=== PATIENT | male | born 1955 | race African-American/Black ===

== ENCOUNTER 2019-10-19 09:53 | Day surgery (SDC) | payer MEDICARE ==
[2019-10-18 10:35] VITALS: BMI 30.7
[~2019-10-19 09:53] MED LIST: CYCLOPENTOLATE 1% OPHTH SOLN 2 ML BTL OP ONE; LACTATED RINGERS 1,000 ML IV SCH; TETRACAINE 0.5% OPHTH (PF) DROPS 4 ML BTL OP ONE
[2019-10-19 10:41] VITALS: RESP 16; TEMP 97.2
[2019-10-19] MEDS ORDERED: LIDOCAINE 1% (10MG/ML) FOR IV START INTRADERMA ONE (10:52)
[2019-10-19] MEDS: PHENYLEPHRINE 2.5% OPHTH DRP 2ML OP NR ×3 (10:55→11:06)
[2019-10-19] MEDS ORDERED: fentaNYL (PF) 50 MCG/ML 2 ML AMP ONE (11:36)
[2019-10-19] MEDS ORDERED: MIDAZOLAM 2 MG/2 ML VIAL ONE (11:36)
[2019-10-19] MEDS ORDERED: EPINEPHrine (PF) 0.3 ML in BALANCED SALT IRRIG SOLN COMB2 500 ML IRRIGATION ONE (11:54)
[2019-10-19] MEDS ORDERED: LIDOCAINE 1% (PF) 10MG/ML VIAL MISCELLANE ONE (11:55)
[2019-10-19] MEDS ORDERED: DUOVISC KIT (GREEN BOX) INTRAOCULA ONE (11:55)
[2019-10-19] MEDS ORDERED: BALANCED SALT IRRIG SOLN COMB2 15 ML IRRIG.SOLN IRRIGATION ONE (11:55)
[2019-10-19] MEDS: TIMOLOL 0.5% OPHTH DROPS 5 ML BTL OP ONE ×2 (11:56→12:14)
[2019-10-19] MEDS: MOXIFLOXACIN HCL 0.5% DROPS 3 ML BTL OP ONE ×2 (11:56→12:14)
[2019-10-19] MEDS ORDERED: FLUORESCEIN STRIPS 1 MG STRIP LEFT EYE ONE (12:12)
--- NOTE | 2019-10-19 12:16 | P.OP ---
Date of Procedure: 10/19/19 Preoperative Diagnosis: NS & CS Postoperative Diagnosis: same Procedure(s) Performed: PC IOL, OS Implants: MX60 16.00 Anesthesia: MAC Surgeon: Jerrod Finley Estimated Blood Loss (ml): 0 Pathology: none sent Condition: stable Disposition: same day Indications for Procedure: blurry vision Operative Findings: no complications
[2019-10-19 12:50] VITALS: BP 142/68; PULSE 47
--- NOTE | 2019-10-20 12:57 | OP ---
OPERATIVE REPORT DATE OF SURGERY: October 19, 2019 PREOPERATIVE DIAGNOSIS: Nuclear sclerosis. Cortical sclerosis. POSTOPERATIVE DIAGNOSIS: Nuclear sclerosis. Cortical sclerosis. OPERATION: Phacoemulsification of cataract and intraocular lens implant of left/OS eye. ESTIMATED BLOOD LOSS: Zero. SPECIMEN TAKEN: None. NARRATIVE: After obtaining the appropriate consent, the patient was brought to the Operating Room where the patient was placed under cardiac monitoring and prepped and draped in the usual sterile manner. At the 5 o'clock position a 15 degree super sharp blade was used to create a paracentesis followed by instillation of 1% Xylocaine MPF 50:50 mix with BSS into the anterior chamber. This was followed by Duovisc to stabilize the anterior chamber. At the 3 o'clock position a self-sealing corneal flap incision was created using 2.8 mm petar keratome. A cystotome was used to initiate a continuous tear capsulorrhexis which was completed with the Utrata forceps. A Binkhorst cannula was used to hydrodissect the lens nucleus followed by hydrodelineation. Phacoemulsification of the lens was performed utilizing phaco-chop in 13.02 seconds at 14% power. The remaining cortical material was removed using the irrigation aspiration mode followed by additional 1% Xylocaine MPF into the anterior chamber followed by viscoelastic to stabilize the capsular bag. A [employer] MX 60 E 16.0 diopter chamber lens was placed into the capsular bag without difficulty. The remaining viscoelastic material was removed from the anterior chamber with the irrigation/aspiration. Balanced salt solution was used to normalize the intraocular pressure. The incision was checked for watertight integrity. The patient then received two drops of 0.5% timolol followed by two drops Vigamox, was lightly patched and shielded in the usual manner. There were no complications from the procedure. The patient tolerated the procedure well and was returned to recovery in good condition. MMODL / IJN: [id number] /
== END 2019-10-19 13:00 | disposition home or self-care (01) ==
LOC: OR 09:53
PROVIDERS: ATTEND Ophthalmology
DX: H25.812 Combined forms of age-related cataract, left eye (principal); Z94.7 Corneal transplant status; H18.603 Keratoconus, unspecified, bilateral; H52.203 Unspecified astigmatism, bilateral; H52.13 Myopia, bilateral; Z96.1 Presence of intraocular lens; G20 Parkinson's disease; I10 Essential (primary) hypertension; J45.909 Unspecified asthma, uncomplicated; E78.5 Hyperlipidemia, unspecified; R00.1 Bradycardia, unspecified; M54.2 Cervicalgia; M19.90 Unspecified osteoarthritis, unspecified site; E66.9 Obesity, unspecified; Z68.31 Body mass index [BMI] 31.0-31.9, adult; Z91.012 Allergy to eggs; Z90.49 Acquired absence of other specified parts of digestive tract; Z79.52 Long term (current) use of systemic steroids; Z79.899 Other long term (current) drug therapy; Z79.51 Long term (current) use of inhaled steroids; Z97.3 Presence of spectacles and contact lenses; Z83.518 Family history of other specified eye disorder; Z82.61 Family history of arthritis; Z82.49 Family history of ischemic heart disease and other diseases of the circulatory system
CPT/HCPCS: 66984; C1780; J2250; J0171; J3010; J2001

== ENCOUNTER → 2019-12-23 | Day surgery (SDC) | payer MEDICARE ==
[2019-12-21 08:56] VITALS: BMI 28.7
[~2019-12-23] MED LIST changes: -CYCLOPENTOLATE 1% OPHTH SOLN 2 ML BTL OP ONE; -LACTATED RINGERS 1,000 ML IV SCH; +SIMETHICONE 40 MG/0.6 ML DROPS 2,000 MG/30 ML BOTTLE PO ONE; -TETRACAINE 0.5% OPHTH (PF) DROPS 4 ML BTL OP ONE
[2019-12-23 07:21] VITALS: BP 144/71; PULSE 69; RESP 16; TEMP 98.1
== END ==
LOC: ORWHC2ENDO 06:52
PROVIDERS: ATTEND Internal Medicine Gastroenterology
DX: K92.2 Gastrointestinal hemorrhage, unspecified (principal)
CPT/HCPCS: 91110

== ENCOUNTER 2019-12-26 12:49 | Inpatient (IN) | payer MEDICARE ==
[2019-12-26] MEDS ORDERED: SODIUM CHLORIDE 0.9% 1,000 ML IV STA (13:10)
[2019-12-26] MEDS ORDERED: ACETAMINOPHEN TAB 500 MG TAB PO STA (13:22)
[2019-12-26] MEDS ORDERED: IBUPROFEN 600 MG TAB PO STA (13:22)
[2019-12-26] MEDS ORDERED: ONDANSETRON 4 MG/2 ML VIAL IVP STA (13:25)
[2019-12-26 13:27] LABS: Basophils # (A) 0.1 k/uL (0-0.2); Basophils % (A) 0 %; Eosinophils # (A) 0.2 k/uL (0-0.7); Eosinophils % (A) 1 %; HCT 41.3 % (39.0-53.0); HGB 13.4 gm/dL (13.0-17.5); Lymphocytes % (A) 6 %; MCH 27.9 pg (25.0-35.0); MCHC 32.4 g/dL (31.0-37.0); MCV 86.1 fL (80.0-100.0); Mean Platelet Volume 9.2; Monocytes # (A) 0.5 k/uL (0-1.0); Monocytes % (A) 3 %; Neutrophils # (A) 14.4 k/uL (1.3-7.7); Neutrophils % (A) 89 %; Platelet Count 211 k/uL (150-450); RBC 4.79 m/uL (4.30-5.90); RDW 14.4 % (11.5-15.5); WBC 16.1 k/uL (3.8-10.6)
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
[2019-12-26 13:36] LABS: ALT 17 U/L (4-49); AST 60 U/L (17-59); African American GFR (CKD) >90 (>60 ml/min/1.73 sqM); Alkaline Phosphatase 100 U/L (38-126); Amylase 94 U/L (30-110); Anion Gap 7 mmol/L; Blood Urea Nitrogen 11 mg/dL (9-20); Calcium 8.8 mg/dL (8.4-10.2); Carbon Dioxide 23 mmol/L (22-30); Chloride 104 mmol/L (98-107); Glucose 105 mg/dL (74-99); Lipase 122 U/L (23-300); Non-African American GFR(CKD) >90 (>60 ml/min/1.73 sqM); Sodium 134 mmol/L (137-145); Total Bilirubin 1.1 mg/dL (0.2-1.3); Total Protein 6.8 g/dL (6.3-8.2)
[2019-12-26 13:39] LABS: Potassium 4.4 mmol/L (3.5-5.1)
[2019-12-26 14:59] LABS: Appearance,Urine Clear (Clear); Bilirubin,Urine Negative (Negative); Blood,Urine Negative (Negative); Color,Urine Yellow; Glucose,Urine (UA) Negative (Negative); Ketones,Urine Negative (Negative); Leukocyte Esterase,Urine Negative (Negative); Nitrite,Urine Negative (Negative); Protein,Urine Negative (Negative); Specific Gravity,Urine 1.014 (1.001-1.035); Urobilinogen,Urine <2.0 mg/dL (<2.0)
[2019-12-26] MEDS ORDERED: SODIUM CHLORIDE 0.9% 1,000 ML IV ONE (16:04)
[2019-12-26] MEDS ORDERED: ALBUTEROL NEBULIZED 2.5 MG/3 ML INHALATION PRN (17:24)
[2019-12-26] MEDS ORDERED: ACETAMINOPHEN TAB 325 MG TAB PO PRN (17:25)
[2019-12-26] MEDS ORDERED: ONDANSETRON 4 MG/2 ML VIAL IVP PRN (17:25)
[2019-12-26] MEDS ORDERED: MORPHINE SULFATE 2 MG/ML SYRINGE IVP PRN (17:25)
[2019-12-26] MEDS: VANCOMYCIN 125 MG CAPSULE PO SCH ×2 (18:07→20:17)
[2019-12-26] MEDS: CARBIDOPA-LEVODOPA ER 50-200MG 1 EACH TABLET.ER PO SCH ×2 (18:09→20:17)
[2019-12-26] MEDS: ATORVASTATIN 10 MG TAB PO SCH (20:17)
[2019-12-26] MEDS: MONTELUKAST 10 MG TAB PO SCH (20:17)
[2019-12-27] MEDS: LOSARTAN 50 MG TAB PO SCH (08:04)
[2019-12-27] MEDS: CARBIDOPA-LEVODOPA ER 50-200MG 1 EACH TABLET.ER PO SCH ×4 (08:04→21:50)
[2019-12-27] MEDS: VANCOMYCIN 125 MG CAPSULE PO SCH ×4 (08:04→21:51)
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
[2019-12-27 14:57] LABS: HCT 39.1 % (39.0-53.0); HGB 12.3 gm/dL (13.0-17.5); Hypochromasia Slight; MCH 28.1 pg (25.0-35.0); MCHC 31.4 g/dL (31.0-37.0); MCV 89.4 fL (80.0-100.0); Mean Platelet Volume 9.2; Platelet Count 161 k/uL (150-450); RBC 4.37 m/uL (4.30-5.90); RDW 14.6 % (11.5-15.5); WBC 10.4 k/uL (3.8-10.6)
[2019-12-27 15:06] LABS: ALT 11 U/L (4-49); AST 42 U/L (17-59); African American GFR (CKD) >90 (>60 ml/min/1.73 sqM); Alkaline Phosphatase 87 U/L (38-126); Anion Gap 5 mmol/L; Blood Urea Nitrogen 11 mg/dL (9-20); Calcium 8.1 mg/dL (8.4-10.2); Carbon Dioxide 25 mmol/L (22-30); Chloride 106 mmol/L (98-107); Glucose 119 mg/dL (74-99); Non-African American GFR(CKD) >90 (>60 ml/min/1.73 sqM); Sodium 136 mmol/L (137-145); Total Bilirubin 0.8 mg/dL (0.2-1.3); Total Protein 5.5 g/dL (6.3-8.2)
[2019-12-27] MEDS: CHOLESTYRAMINE (WITH SUGAR) 4 GM PACKET PO SCH (17:09)
--- NOTE | 2019-12-27 18:38 | CONS ---
CONSULTATION DATE OF DICTATION: 12/27/2019 REASON FOR CONSULTATION: Acute Clostridium difficile colitis. HISTORY OF PRESENT ILLNESS: The patient is a 64-year-old pleasant white male with history of hypertension, hyperlipidemia, Parkinson's disease, who was recently admitted to [facility] with acute GI bleed. He underwent an upper endoscopy as well as colonoscopy, and no obvious source of bleeding was identified. He was transferred to [facility], and apparently while there he also had repeat endoscopic procedures done, and no source of bleeding was identified. In the meantime the bleeding has subsided and he was discharged home. He did have a small bowel capsule endoscopy last Thursday, results of which are still pending at the time of this dictation. In the meantime, he started having severe diarrhea that started yesterday morning at 10 a.m. He had about 6 to 7 loose watery bowel movements and he became concerned. He had a fever of 101 and cramping lower abdominal pain. No bleeding. He came to the emergency room and subsequently was admitted to the hospital for further evaluation. He did have stool for C difficile done which was reported as positive and presently on oral vancomycin. He still has persistent diarrhea this morning. Abdominal pain is improving. No nausea, vomiting. Fever has resolved. He had an episode of acute C difficile colitis in October of 2019, at which time he was treated with vancomycin and did well. He denies any recent antibiotic use. PAST MEDICAL HISTORY: His past medical history is significant for hypertension, hyperlipidemia, Parkinson's disease, degenerative joint disease, recent GI bleed as mentioned above, hypercholesteremia. MEDICATIONS: Medications at home include Ventolin, Lipitor, Sinemet, Cozaar, Singulair, Alrex. ALLERGIES: EGGS. SOCIAL HISTORY: No smoking. No alcohol use. FAMILY HISTORY: Unremarkable. PAST SURGICAL HISTORY: Bilateral cataract surgery colon resection with anastomosis secondary to diverticulitis, bilateral corneal transplants. REVIEW OF SYSTEMS: CARDIOPULMONARY: No chest pain or shortness of breath. GENITOURINARY: No dysuria or hematuria. MUSCULOSKELETAL: Unremarkable. SKIN: Unremarkable. ENDOCRINE: Unremarkable. PSYCHIATRIC: Unremarkable. NEUROLOGY: History of Parkinson's disease. ENT/VISION: Unremarkable. ENDOCRINE: Unremarkable. CONSTITUTIONAL: No recent weight loss. No fever, chills, night sweats. PHYSICAL EXAMINATION: He appears comfortable. VITAL SIGNS: Stable. Blood pressure 152/75, pulse rate 57, temperature 98. HEENT examination unremarkable. Conjunctivae pink. Sclerae anicteric. Oral cavity no lesions. NECK: No JVD or lymph node enlargement. CHEST: Clear to auscultation. HEART: Regular rate and rhythm. ABDOMEN: Soft. It was non-tender, non-distended. Bowel sounds are positive. No organomegaly. EXTREMITIES: No pedal edema. NEUROLOGIC: Alert and oriented x3. No focal deficits. LABS: Labs from yesterday: WBC 16.1, hemoglobin 13.4, platelets normal, neutrophils 14.4. Basic metabolic panel is within normal limits. AST 60, ALT 70. Amylase and lipase are normal. C difficile was positive. Today WBC is down to 10.4 g/dL. Rest of the labs are within normal limits. IMPRESSION: 1. Acute Clostridium difficile colitis. Patient was started on oral vancomycin and clinically he is improving. He still has persistent diarrhea with abdominal pain and fever has resolved. Leukocytosis has completely resolved. He had an episode of Clostridium difficile colitis in October of this year, treated with vancomycin and had done well. He denies any recent antibiotic use. 2. Recent gastrointestinal bleed, for which he underwent upper endoscopy as well as colonoscopy by Dr. Forte at [facility] 2 weeks ago that was unremarkable. Small bowel capsule endoscopy was done last week, results of which are pending at the time of this dictation. 3. History of Parkinson's disease. RECOMMENDATIONS: 1. Continue oral vancomycin 250 mg 4 times daily. 2. We will start him on Questran 4 grams twice daily. 3. Continue with a clear liquid diet and advance as tolerated. 4. Avoid antibiotics if possible. 5. Repeat labs in the morning. We will follow with you closely. Thank you for this consultation. MMODL / IJN: [id number] /
[2019-12-27] MEDS: ATORVASTATIN 10 MG TAB PO SCH (21:51)
[2019-12-27] MEDS: MONTELUKAST 10 MG TAB PO SCH (21:51)
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
[2019-12-28 06:08] LABS: HCT 38.4 % (39.0-53.0); HGB 12.3 gm/dL (13.0-17.5); Hypochromasia Slight; MCH 28.2 pg (25.0-35.0); MCV 88.1 fL (80.0-100.0); Mean Platelet Volume 9.1; Platelet Count 179 k/uL (150-450); RBC 4.36 m/uL (4.30-5.90); RDW 14.3 % (11.5-15.5); WBC 9.1 k/uL (3.8-10.6)
[2019-12-28 06:23] LABS: ALT 13 U/L (4-49); AST 31 U/L (17-59); African American GFR (CKD) >90 (>60 ml/min/1.73 sqM); Albumin 2.9 g/dL (3.5-5.0); Alkaline Phosphatase 86 U/L (38-126); Anion Gap 6 mmol/L; Blood Urea Nitrogen 7 mg/dL (9-20); Calcium 8.1 mg/dL (8.4-10.2); Carbon Dioxide 24 mmol/L (22-30); Chloride 106 mmol/L (98-107); Glucose 83 mg/dL (74-99); Non-African American GFR(CKD) >90 (>60 ml/min/1.73 sqM); Potassium 3.8 mmol/L (3.5-5.1); Sodium 136 mmol/L (137-145); Total Bilirubin 0.7 mg/dL (0.2-1.3); Total Protein 5.4 g/dL (6.3-8.2)
[2019-12-28] MEDS: LOSARTAN 50 MG TAB PO SCH (07:50)
[2019-12-28] MEDS: VANCOMYCIN 125 MG CAPSULE PO SCH ×4 (07:50→21:08)
[2019-12-28] MEDS: PANTOPRAZOLE 40 MG TABLET PO SCH (07:50)
[2019-12-28] MEDS: CARBIDOPA-LEVODOPA ER 50-200MG 1 EACH TABLET.ER PO SCH ×4 (07:50→21:08)
[2019-12-28] MEDS: CHOLESTYRAMINE (WITH SUGAR) 4 GM PACKET PO SCH (09:39)
--- NOTE | 2019-12-28 12:32 | PN ---
PROGRESS NOTE DATE OF SERVICE: 12/28/2019 REASON FOR FOLLOWUP: C difficile colitis. INTERVAL HISTORY: The patient is currently afebrile. The patient is feeling better. Breathing comfortably. Patient denies having any chest pain. No shortness of breath, no cough. Abdominal pain is currently controlled and diarrhea has slowed down. PHYSICAL EXAMINATION: Blood pressure 161/76 with a pulse of 54, temperature 98.8, he is 96% on room air. General description is an is elderly male, up in the room in no distress. RESPIRATORY SYSTEM: Unlabored breathing, clear to auscultation anteriorly. HEART: S1, S2. Regular rate and rhythm. ABDOMEN: Soft, no tenderness. LABS: Hemoglobin is 12.1, white count 9.1, BUN of 7, creatinine 0.78. DIAGNOSTIC IMPRESSION AND PLAN: Patient with recurrent C difficile colitis in this patient seemed to be clinically responding to oral vancomycin with gram-negative and course of vancomycin being his second episode. Advised to increase probiotic and yogurt intake. Continue supportive care. MMODL / IJN: [id number] /
--- NOTE | 2019-12-28 14:11 | P.PN ---
Subjective Progress Note Date: 12/28/19 HISTORY OF PRESENT ILLNESS This is a 64-year-old male patient of Dr. Hernández with past medical history of hypertension, hyperlipidemia, Parkinson's, mild intermittent asthma, restless leg syndrome, diverticulitis requiring colectomy and reanastomosis. Patient was recently hospitalized at [facility] at which time he was seen for GI bleed. He initially presented to hospital due to fever and diarrhea with liquid stools. He underwent endoscopy with Dr. Forte that found small bowel bleeding and patient was sent [facility] for evaluation and treatment. Patient had repeated endoscopy upper and lower and did not find any source of bleeding and discharged the patient home. Patient was then hospitalized at [facility] November 19 through November 24 and treated for C. difficile colitis and discharged home on vancomycin for 14 day course. He also underwent capsule endoscopy on December [address] Kenney. Patient had sudden onset of diarrhea yesterday which was occurring every time he ate. He also developed fever up to 101. He denies having any lightheadedness or dizziness, no chest pain. He attempted to call the office and was directed to come into the hospital for treatment and treatment. Patient presented to [facility] emergency center for evaluation. He had a temperature of 100.8, heart rate 103, blood pressure 1 49/84 and pulse ox 98% on room air. WBC 16.1, hemoglobin 13.4, platelet count 211. Sodium 134, potassium 4.4, chloride 104, CO2 23, BUN 11 and creatinine 0.8. Blood sugar 105. AST 60, ALT 17, alkaline phosphatase 100, lipase 122. Urinalysis negative. Lactic acid 1.6. C. difficile toxin positive. Patient was placed on the observation unit and started on vancomycin and IV fluids. Patient has had a total of 5 bowel movements since admission. 12/27: Patient has been seen by Dr. Kenney with recommendations to continue current management. Capsule endoscopy report is pending. Patient is also followed by Dr. Zee with recommendations to continue current management. Patient is on oral vancomycin 250 mg 4 times daily and Questran 4 g twice daily. Frequency of stools is improved. He denies having any fever or chills.patient has been afebrile, heart rate 54, blood pressure 161/76, pulse ox 96% on room air. Repeat blood work reveals WBC 9.1, hemoglobin 12.3, platelet count 179. Sodium 136, potassium 3.8, chloride 106, CO2 24, BUN 7 and creatinine 0.78. Anticipate discharge home tomorrow. REVIEW OF SYSTEMS Constitutional: No fever, no chills, no night sweats. No weight change. No weakness, fatigue or lethargy. No daytime sleepiness. EENT: No headache. No blurred vision or double vision, no loss of vision. No loss of Hearing, no ringing in the ears, no dizziness. No nasal drainage or congestion. No epistaxis. No sore throat. Lungs: No shortness of breath, cough, no sputum production. No wheezing. Cardiovascular: No chest pain, no lower extremity edema. No palpitations. No paroxysmal nocturnal dyspnea. No orthopnea. No lightheadedness or dizziness. No syncopal episodes. Abdominal: No abdominal pain. No nausea, vomiting. Reports diarrhea. No constipation. No bloody or tarry stools.. No loss of appetite. Genitourinary: No dysuria, increased frequency, urgency. No urinary retention. Musculoskeletal: No myalgias. No muscle weakness, no gait dysfunction, no frequent falls. No back pain. No neck pain. Integumentary: No wounds, no lesions. No rash or pruritus. No unusual bruising. No change in hair or nails. Neurologic: No aphasia. No facial droop. No change in mentation. No head injury. No headache. No paralysis. No paresthesia. Psychiatric: No depression. No anxiety. No mood swings. Endocrine: No abnormal blood sugars. No weight change. No excessive sweating or thirst. No cold intolerance. PHYSICAL EXAMINATION Gen: This is a 64-year-old black male. He is resting in bed and appears to be comfortable and in no acute distress. HEENT: Head is atraumatic, normocephalic. Pupils equal, round. Sclerae is anicteric. NECK: Supple. No JVD. No lymphadenopathy. No thyromegaly. LUNGS: Clear to auscultation. No wheezes or rhonchi. No intercostal retractions. HEART: Regular rate and rhythm. No murmur. ABDOMEN: Soft. Bowel sounds are present. No masses. Mild left lower quadrant tenderness-improving. EXTREMITIES: No pedal edema. No calf tenderness. NEUROLOGICAL: Patient is awake, alert and oriented x3. Cranial nerves 2 through 12 are grossly intact. Parkinson's tremor noted ASSESSMENT AND PLAN 1. Sepsis secondary to C. difficile colitis. Continue vancomycin 250 mg 4 times daily, Questran twice daily. Continue morphine as needed for pain, Zofran for nausea. Consult with Dr. Aurelio Kenney and Dr. Yayo esposito. Plan for tapering vancomycin at discharge. 2. Hypertension. Continue losartan 50 mg daily. 3. Hyperlipidemia. Continue Lipitor 10 mg at bedtime. 4. Parkinson's disease. Continue Sinemet 4 times daily. 5. Mild intermittent asthma. Continue Ventolin inhaler as needed, Singulair 10 mg at bedtime. 6. Gastrointestinal prophylaxis. Protonix. 7. DVT prophylaxis. SCDs and RAFAEL hose. Discharge plan: Return home on . Impression and plan of care have been directed as dictated by the signing physician. Chelly Jules nurse practitioner acting as scribe for signing physician. Objective - Vital Signs Vital signs: Vital Signs Temp 98.8 F 12/28/19 08:03 Pulse 54 L 12/28/19 08:03 Resp 16 12/28/19 08:03 BP 161/76 12/28/19 08:03 Pulse Ox 96 12/28/19 08:03 Intake & Output 12/27/19 12/28/19 12/28/19 18:59 06:59 18:59 Other: Voiding Method Toilet Toilet Toilet Bedside Commode Bedside Commode Bedside Commode # Voids 1 1 1 # Bowel Movements 3 3 1 - Labs CBC & Chem 7: 12/28/19 05:34 12/28/19 05:34 Labs: Abnormal Lab Results - Last 24 Hours (Table) 12/27/19 12/27/19 12/28/19 Range/Units 14:30 14:30 05:34 Hgb 12.3 L 12.3 L (13.0-17.5) gm/dL Hct 38.4 L (39.0-53.0) % Sodium 136 L (137-145) mmol/L BUN (9-20) mg/dL Glucose 119 H (74-99) mg/dL Calcium 8.1 L (8.4-10.2) mg/dL Total Protein 5.5 L (6.3-8.2) g/dL Albumin 3.0 L (3.5-5.0) g/dL 12/28/19 Range/Units 05:34 Hgb (13.0-17.5) gm/dL Hct (39.0-53.0) % Sodium 136 L (137-145) mmol/L BUN 7 L (9-20) mg/dL Glucose (74-99) mg/dL Calcium 8.1 L (8.4-10.2) mg/dL Total Protein 5.4 L (6.3-8.2) g/dL Albumin 2.9 L (3.5-5.0) g/dL
[2019-12-28] MEDS ORDERED: CHOLESTYRAMINE (WITH SUGAR) 4 GM PACKET PO PRN (15:01)
--- NOTE | 2019-12-28 15:11 | P.PN ---
Subjective Progress Note Date: 12/28/19 Principal diagnosis: Acute Clostridium difficile colitis The patient was seen and examined at the bedside. He was admitted for diarrhea which his stool studies did show positive for C. difficile in which she has been treating with oral vancomycin. He was started on Questran yesterday which he states has helped with bulking of stools. He states that his diarrhea has been decreasing in frequency, and has been beginning to form. He denies any nausea or vomiting, abdominal pain, fevers or chills. Objective - Vital Signs Vital signs: Vital Signs Temp 98.1 F 12/28/19 14:30 Pulse 50 L 12/28/19 14:30 Resp 16 12/28/19 14:30 BP 144/76 12/28/19 14:30 Pulse Ox 96 12/28/19 14:30 Intake & Output 12/27/19 12/28/19 12/28/19 18:59 06:59 18:59 Other: Voiding Method Toilet Toilet Toilet Bedside Commode Bedside Commode Bedside Commode # Voids 1 1 2 # Bowel Movements 3 3 1 - Exam General appearance: The patient is alert, oriented, in no acute distress. HET: Head is normocephalic and atraumatic. Neck: Supple. Heart: S1 S2. Regular rate and rhythm. Lungs: No crackles or wheezes are heard. Abdomen: Soft, nontender, nondistended with bowel sounds. No guarding or rigidity. Extremities: Normal skin color and turgor. No pedal edema. Neurological: No focal deficits. - Labs CBC & Chem 7: 12/28/19 05:34 12/28/19 05:34 Labs: Abnormal Lab Results - Last 24 Hours (Table) 12/27/19 12/28/19 12/28/19 Range/Units 14:30 05:34 05:34 Hgb 12.3 L (13.0-17.5) gm/dL Hct 38.4 L (39.0-53.0) % Sodium 136 L 136 L (137-145) mmol/L BUN 7 L (9-20) mg/dL Glucose 119 H (74-99) mg/dL Calcium 8.1 L 8.1 L (8.4-10.2) mg/dL Total Protein 5.5 L 5.4 L (6.3-8.2) g/dL Albumin 3.0 L 2.9 L (3.5-5.0) g/dL Assessment and Plan Assessment: 1. Acute Clostridium difficile colitis. She was started on oral vancomycin and clinically is improving. His diarrhea is improving, his abdominal pain and fever have resolved. Leukocytosis has completely resolved. He had an episode o f C. diff colitis in October of this year, treated with vancomycin and had done well. He denies any recent antibiotic use. 2. Recent gastrointestinal bleed, for which he underwent upper endoscopy as well as colonoscopy by Dr. Garcia [facility] 2 weeks ago and was unremarkable. Small bowel capsule endoscopy was done last week, results of which are pending at the time of this dictation. 3. History of Parkinson's disease Plan: 1. Continue oral vancomycin 250 mg 4 times daily 2. Questran 4 g twice daily, decrease to as needed 3. Advance diet as tolerated 4. Avoid antibiotics if possible 5. Repeat labs in the morning. We will follow you closely. Thank you for this consultation. The impression and plan of care has been dictated as directed. Dr. Aurelio Kenney I performed a history and examination of this patient, discussed the same with the dictator. I agree with the dictator's note ,documented as a scribe. Any additional findings or plans will be noted.
[2019-12-28] MEDS: MONTELUKAST 10 MG TAB PO SCH (21:08)
[2019-12-28] MEDS: ATORVASTATIN 10 MG TAB PO SCH (21:09)
[2019-12-29] MEDS: PANTOPRAZOLE 40 MG TABLET PO SCH (07:32)
[2019-12-29] MEDS: VANCOMYCIN 125 MG CAPSULE PO SCH ×2 (08:56→12:23)
[2019-12-29] MEDS: LOSARTAN 50 MG TAB PO SCH (08:56)
[2019-12-29] MEDS: CARBIDOPA-LEVODOPA ER 50-200MG 1 EACH TABLET.ER PO SCH ×2 (08:56→12:23)
[2019-12-29 09:13] VITALS: RESP 17; TEMP 98.5
[2019-12-29 11:09] VITALS: BP 151/69; PULSE 52
--- NOTE | 2019-12-29 15:43 | PN ---
PROGRESS NOTE DATE OF DICTATION: 12/29/2019 Patient is a 64-year-old -[place] male admitted to the hospital with a second episode of Clostridium difficile colitis. He is on oral vancomycin, doing well. Questran was discontinued yesterday. Overall he denies any complaints. No abdominal pain. He had 2 soft bowel movements this morning. PHYSICAL EXAMINATION: Appears comfortable. VITAL SIGNS: Stable. Blood pressure 151/61, pulse rate 52, temperature 98.5. HEENT examination unremarkable. Conjunctivae pink. Sclerae anicteric. Oral cavity no lesions. NECK: No JVD or lymph node enlargement. CHEST: Clear to auscultation. HEART: Regular rate and rhythm. ABDOMEN: Soft. Bowel sounds are positive. No organomegaly. EXTREMITIES: No pedal edema. NEUROLOGIC: Alert and oriented x3. No focal deficits. LABS: WBC 9.1, hemoglobin 12.3, platelets normal. Basic metabolic panel is within normal limits. IMPRESSION: 1. Recurrent Clostridium difficile colitis, this being the second episode, on oral vancomycin day #3, doing well. Diarrhea has resolved. 2. Recent episode of acute gastrointestinal bleed, for which he underwent esophagogastroduodenoscopy and colonoscopy by Dr. Forte 3 weeks ago at [facility] that was unremarkable. Small bowel capsule endoscopy was done and results are still pending at the time of this dictation. RECOMMENDATIONS: 1. Continue with oral vancomycin 250 mg 4 times daily for 10 days. 2. He will be notified about the small bowel capsule endoscopy results once they are available. 3. Questran as needed. 4. He can be discharged home today with outpatient followup as needed. Thank you for this consultation. MMODL / IJN: [id number] /
--- NOTE | 2019-12-29 16:57 | P.PN ---
Progress Note - Text Progress Note Date: 12/29/19 REASON FOR FOLLOWUP: C difficile colitis. INTERVAL HISTORY: The patient remains to be afebrile. The patient is feeling better. The patient is breathing comfortably. Patient denies having any chest pain. No shortness of breath, no cough. Abdominal pain is currently controlled and diarrhea has slowed down. PHYSICAL EXAMINATION: Blood pressure 160/70 with a pulse of 54, temperature 98.8, he is 96% on room air. General description is an is elderly male, up in the room in no distress. RESPIRATORY SYSTEM: Unlabored breathing, clear to auscultation anteriorly. HEART: S1, S2. Regular rate and rhythm. ABDOMEN: Soft, no tenderness. LABS: Reviewed . DIAGNOSTIC IMPRESSION AND PLAN: Patient with recurrent C difficile colitis in this patient seemed to be clinically responding to oral vancomycin , for being his recurrent episode recommend a tapering course of vancomycin on discharge patient advised to increase his probiotic and yougart intake
--- NOTE | 2019-12-30 07:36 | P.DS ---
Providers Date of admission: 12/27/19 12:41 Expected date of discharge: 12/29/19 Attending physician: Ryanne Mcgowan MD Consults: 12/26/19 17:26 Consult Physician Routine Consulting Provider: Peri Kenney Consult Reason/Comments: Cdiff? abdominal pain, and loose stools, jus had cdiff Do you want consulting provider notified?: Yes 12/26/19 17:27 Consult Physician Routine Consulting Provider: Chris Zee Consult Reason/Comments: Cdiff Do you want consulting provider notified?: Yes Primary care physician: Gayle Hernández [facility] Course: HISTORY OF PRESENT ILLNESS This is a 64-year-old male patient of Dr. Hernández with past medical history of hypertension, hyperlipidemia, Parkinson's, mild intermittent asthma, restless leg syndrome, diverticulitis requiring colectomy and reanastomosis. Patient was recently hospitalized at [facility] at which time he was seen for GI bleed. He initially presented to hospital due to fever and diarrhea with liquid stools. He underwent endoscopy with Dr. Forte that found small bowel bleeding and patient was sent [facility] for evaluation and treatment. Patient had repeated endoscopy upper and lower and did not find any source of bleeding and discharged the patient home. Patient was then hospitalized at [facility] November 19 through November 24 and treated for C. difficile colitis and discharged home on vancomycin for 14 day course. He also underwent capsule endoscopy on December [address] Kenney. Patient had sudden onset of diarrhea yesterday which was occurring every time he ate. He also developed fever up to 101. He denies having any lightheadedness or dizziness, no chest pain. He attempted to call the office and was directed to come into the hospital for treatment and treatment. Patient presented to [facility] emergency center for evaluation. He had a temperature of 100.8, heart rate 103, blood pressure 149/84 and pulse ox 98% on room air. WBC 16.1, hemoglobin 13.4, platelet count 211. Sodium 134, potassium 4.4, chloride 104, CO2 23, BUN 11 and creatinine 0.8. Blood sugar 105. AST 60, ALT 17, alkaline phosphatase 100, lipase 122. Urinalysis negative. Lactic acid 1.6. C. difficile toxin positive. Patient was placed on the observation unit and started on vancomycin and IV fluids. Patient has had a total of 5 bowel movements since admission. 12/27: Patient has been seen by Dr. Kenney with recommendations to continue current management. Capsule endoscopy report is pending. Patient is also followed by Dr. Zee with recommendations to continue current management. Patient is on oral vancomycin 250 mg 4 times daily and Questran 4 g twice daily. Frequency of stools is improved. He denies having any fever or chills.patient has been afebrile, heart rate 54, blood pressure 161/76, pulse ox 96% on room air. Repeat blood work reveals WBC 9.1, hemoglobin 12.3, platelet count 179. Sodium 136, potassium 3.8, chloride 106, CO2 24, BUN 7 and creatinine 0.78. Anticipate discharge home tomorrow. 12/28: Patient had no bowel movements overnight. He denies having any abdominal pain. No nausea or vomiting. Patient is afebrile, heart rate 48, blood pressure 151/82, pulse ox 100% on room air. Patient will be discharged on tapering dose of Vanco po as advised by Dr. Zee. Patient will be discharged home today in stable condition. ASSESSMENT AND PLAN 1. Sepsis secondary to C. difficile colitis. 2. Hypertension. 3. Hyperlipidemia. 4. Parkinson's disease. 5. Mild intermittent asthma. Discharge plan: Return home Impression and plan of care have been directed as dictated by the signing physician. Chelly Jules nurse practitioner acting as scribe for signing physician. Patient Condition at Discharge: Good Plan - Discharge Summary New Discharge Prescriptions: New Vancomycin Oral Solution 250 mg PO Q6HR #102 dose Continue Montelukast Sodium [Singulair] 10 mg PO HS Losartan Potassium [Cozaar] 50 mg PO DAILY Atorvastatin [Lipitor] 10 mg PO HS Albuterol Inhaler [Ventolin Hfa Inhaler] 2 puff INHALATION RT-QID PRN PRN Reason: Dyspnea Carbidopa-Levodopa ER 50-200Mg [Sinemet CR 50-200 mg] 1 each PO QID Loteprednol Etabonate [Alrex] 1 drop BOTH EYES HS Discharge Medication List Albuterol Inhaler [Ventolin Hfa Inhaler] 2 puff INHALATION RT-QID PRN 10/18/19 [History] Atorvastatin [Lipitor] 10 mg PO HS 10/18/19 [History] Carbidopa-Levodopa ER 50-200Mg [Sinemet CR 50-200 mg] 1 each PO QID 10/18/19 [History] Losartan Potassium [Cozaar] 50 mg PO DAILY 10/18/19 [History] Montelukast Sodium [Singulair] 10 mg PO HS 10/18/19 [History] Loteprednol Etabonate [Alrex] 1 drop BOTH EYES HS 12/26/19 [History] Vancomycin Oral Solution 250 mg PO Q6HR #102 dose 12/29/19 [Rx] Follow up Appointment(s)/Referral(s): Gayle Hernández MD [Primary Care Provider] - 01/09/20 10:30 am [facility] Visiting Nurse, [NON-STAFF] - 1-2 Days Patient Instructions/Handouts: Gastrointestinal Bleeding (GEN), C Diff (Clostridium Difficile) Infection (GEN) Discharge Disposition: HOME SELF-CARE
== END 2019-12-29 13:55 | disposition home health service (06) | DRG 872 ==
LOC: EC 12:49 → 1SOBS 16:04 → OBSVTOIN 12-27 12:41
PROVIDERS: ADMIT Internal Medicine; ATTEND Internal Medicine
DX: A41.4 Sepsis due to anaerobes (principal); A04.71 Enterocolitis due to Clostridium difficile, recurrent; G25.81 Restless legs syndrome; I10 Essential (primary) hypertension; M19.90 Unspecified osteoarthritis, unspecified site; G20 Parkinson's disease; E78.00 Pure hypercholesterolemia, unspecified; E78.5 Hyperlipidemia, unspecified; J45.20 Mild intermittent asthma, uncomplicated; Z79.899 Other long term (current) drug therapy; Z91.012 Allergy to eggs; Z82.49 Family history of ischemic heart disease and other diseases of the circulatory system; Z87.19 Personal history of other diseases of the digestive system; Z86.19 Personal history of other infectious and parasitic diseases; Z90.49 Acquired absence of other specified parts of digestive tract; Z98.890 Other specified postprocedural states; Z98.42 Cataract extraction status, left eye; Z98.41 Cataract extraction status, right eye; Z94.7 Corneal transplant status
CPT/HCPCS: 36415; 80053; 81003; 82150; 83605; 83690; 85025; 85027; 87324; 96361; 96374; 99284

== ENCOUNTER → 2020-08-24 | Day surgery (SDC) | payer MEDICARE ==
[2020-08-23 15:06] VITALS: BMI 28.5
[2020-08-24 06:51] VITALS: BP 141/67; PULSE 100; RESP 18; TEMP 96.8
== END ==
LOC: ORWHC2ENDO 06:33
PROVIDERS: ATTEND Internal Medicine
DX: K92.1 Melena (principal)
CPT/HCPCS: 91110

== ENCOUNTER 2022-05-26 02:56 | Inpatient (IN) | payer MEDICARE ==
[2022-05-26 03:08] VITALS: TEMP 97.7
[2022-05-26] MEDS ORDERED: DILTIAZEM 5 MG/ML 5 ML VIAL IVP STA (03:26)
[2022-05-26] MEDS ORDERED: SODIUM CHLORIDE 0.9% 1,000 ML IV STA ×2 (03:26)
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
[2022-05-26 03:43] LABS: Basophils # (A) 0.1 k/uL (0-0.2); Basophils % (A) 1 %; Eosinophils # (A) 0.2 k/uL (0-0.7); Eosinophils % (A) 3 %; HCT 48.7 % (39.0-53.0); HGB 16.8 gm/dL (13.0-17.5); Lymphocytes # (A) 3.2 k/uL (1.0-4.8); Lymphocytes % (A) 39 %; MCH 29.8 pg (25.0-35.0); MCHC 34.4 g/dL (31.0-37.0); MCV 86.4 fL (80.0-100.0); Mean Platelet Volume 8.9; Monocytes # (A) 0.5 k/uL (0-1.0); Monocytes % (A) 6 %; Neutrophils # (A) 4.1 k/uL (1.3-7.7); Neutrophils % (A) 50 %; Platelet Count 190 k/uL (150-450); RBC 5.64 m/uL (4.30-5.90); RDW 12.5 % (11.5-15.5); WBC 8.3 k/uL (3.8-10.6)
[2022-05-26 03:56] LABS: Calcium 8.7 mg/dL (8.4-10.2); INR 1.1 (<1.2); Magnesium 1.7 mg/dL (1.6-2.3); Phosphorus 4.6 mg/dL (2.5-4.5); Prothrombin Time 11.2 sec (9.0-12.0)
[2022-05-26 03:57] LABS: Potassium 4.7 mmol/L (3.5-5.1)
--- NOTE | 2022-05-26 04:31 | XR ---
EXAMINATION TYPE: XR chest 2V DATE OF EXAM: 05/26/2022 COMPARISON: NONE HISTORY: Chest pain TECHNIQUE: 2 views FINDINGS: Heart and mediastinum are normal. Lungs are clear. Diaphragm is normal. Bony thorax is inta ct. There are no hilar masses. IMPRESSION: Normal chest.
[2022-05-26] MEDS ORDERED: NALOXONE 0.4 MG/ML 1 ML VIAL IV PRN (04:57)
[2022-05-26] MEDS ORDERED: MORPHINE SULFATE 4 MG/ML SYRINGE IV PRN (04:57)
[2022-05-26] MEDS ORDERED: ONDANSETRON 4 MG/2 ML VIAL IVP PRN (04:57)
[2022-05-26] MEDS: SODIUM CHLORIDE 0.9% 1,000 ML IV SCH ×2 (07:57→13:06)
[2022-05-26] MEDS ORDERED: ALBUTEROL NEBULIZED 2.5 MG/3 ML INHALATION PRN (10:04)
[2022-05-26] MEDS ORDERED: CYCLOBENZAPRINE 5 MG TAB PO PRN (10:04)
[2022-05-26] MEDS ORDERED: LOSARTAN 25 MG TAB PO SCH (13:00)
[2022-05-26] MEDS ORDERED: DILTIAZEM CD 120 MG CAP.ER.24H PO SCH (13:00)
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
[2022-05-26] MEDS: MAGNESIUM SULFATE-D5W PMX 1 GM in DEXTROSE/WATER 1 100ML.BAG IVPB SCH ×2 (13:53→14:55)
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
[2022-05-26] MEDS ORDERED: CARBIDOPA-LEVODOPA ER 50-200MG 1 EACH TABLET.ER PO SCH (16:00)
[2022-05-26 16:02] VITALS: BP 131/73; PULSE 58; RESP 18
[2022-05-26] MEDS ORDERED: prednisoLONE ACETATE 1% OPHTH DROPS 5 ML BTL BOTH EYES SCH (21:00)
[2022-05-26] MEDS ORDERED: ATORVASTATIN 10 MG TAB PO SCH (21:00)
== END 2022-05-26 16:02 | disposition home or self-care (01) | DRG 310 ==
LOC: EC 02:56 → 3SCARD 04:57
PROVIDERS: ADMIT Hospitalist; ATTEND Hospitalist
DX: I47.1 Supraventricular tachycardia (principal); R42 Dizziness and giddiness; R00.1 Bradycardia, unspecified; I10 Essential (primary) hypertension; G20 Parkinson's disease; E83.42 Hypomagnesemia; E78.5 Hyperlipidemia, unspecified; M19.90 Unspecified osteoarthritis, unspecified site; J45.20 Mild intermittent asthma, uncomplicated; Z79.899 Other long term (current) drug therapy; Z91.012 Allergy to eggs; Z87.19 Personal history of other diseases of the digestive system; Z98.42 Cataract extraction status, left eye; Z98.41 Cataract extraction status, right eye; Z94.7 Corneal transplant status; Z98.1 Arthrodesis status
CPT/HCPCS: 36415; 71046; 80048; 83605; 83735; 83880; 84100; 84443; 84484; 85025; 85610; 93005; 96361; 96365; 96366; 99291

== ENCOUNTER → 2022-11-07 | Outpatient (CLI) | payer OTHER ==
--- NOTE | 2022-11-10 10:23 | MR ---
EXAMINATION TYPE: MR brain/cspine wo DATE OF EXAM: 11/07/2022 10:20 PM CLINICAL INDICATION:Male, 67 years old with history of R51.9,R27.0,M48.02; Headaches, Ataxia, Cervica l Stenosis COMPARISON: CT brain 06/15/2022 TECHNIQUE: Multiplanar, multisequence images of the brain and brainstem is performed. Multi planar, multi sequence imaging was performed utilizing: T1-weighted, T2-weighted, and turbo inv ersion recovery imaging of the cervical spine. MR IV Contrast: None FINDINGS: BRAIN: Diffusion weighted images demonstrate no evidence of a recent infarct or other diffusion abnormality. There is no extra-axial fluid collection. Scattered foci of high T2 signal in the periventricular a nd deep white matter. The ventricular system and cisternal spaces are normal in size and appearance. The brain volume is age appropriate. Midline structures demonstrate normal morphology. The cranioce rvical junction appears within normal limits. The dural venous sinuses appear patent. The bone marrow signal is within normal limits. Paranasal sinuses and mastoid air cells: Mild scattered paranasal sinus disease. Visualized orbits: Bilateral aphakia C-SPINE: Alignment: The cervical vertebral bodies have preserved heights. Alignment is within normal limits gi hal patient positioning. Bones: Postsurgical change to the spine at C4-C5 and C6 Multilevel degenerative disc disease is noted and most pronounced at the C5-C6 and C6-7 vertebral levels. Cord: The spinal cord is unremarkable with regards to their signal intensity and morphology. Discs: Multilevel disc desiccation is present. C2-C3: A disc osteophyte complex is present with mild spinal canal stenosis. Bilateral facet and unc overtebral joint arthropathy are present with mild left neural foraminal stenosis. The right neural f oramen is patent. C3-C4: A disc osteophyte complex is present which minimally narrows the ventral subarachnoid space. Bilateral facet and uncovertebral joint arthropathy are present with moderate bilateral moderate rig ht and mild left neural foraminal stenosis. C4-C5: A disc osteophyte complex is present which minimally narrows the ventral subarachnoid space. Bilateral facet and uncovertebral joint arthropathy are present with mild to moderate bilateral neur al foraminal stenosis. C5-C6: A disc osteophyte complex is present which which impresses on the left ventral spinal cord. Bilateral facet and uncovertebral joint arthropathy are present with moderate bilateral neural forami nal stenosis. C6-C7: A disc osteophyte complex is present which which impresses on the left ventral spinal cord. Bilateral facet and uncovertebral joint arthropathy are present with moderate bilateral neural forami nal stenosis. C7-T1: No significant disc pathology. The spinal canal is patent. Bilateral facet and uncovertebral joint arthropathy are present with moderate bilateral neural foraminal stenosis. Other: None. IMPRESSION: 1. No evidence of intracranial mass, acute/subacute infarct, or abnormal enhancement. 2. Nonspecific white matter changes, likely related to small vessel ischemic disease 3. Disc osteophyte complexes which impresses upon the anterior spinal cord at C5-C6 and C6-C7. Spina l cord signal is maintained. 4. Multiple disc degeneration changes throughout the spine.
== END | disposition home or self-care (01) ==
LOC: RADMRIMAIN 21:15
PROVIDERS: ATTEND Neurological Surgery
DX: M48.02 Spinal stenosis, cervical region (principal); M47.812 Spondylosis without myelopathy or radiculopathy, cervical region; M25.78 Osteophyte, vertebrae; M50.321 Other cervical disc degeneration at C4-C5 level; H27.03 Aphakia, bilateral; R90.82 White matter disease, unspecified; R51.9 Headache, unspecified; R27.0 Ataxia, unspecified; Z98.890 Other specified postprocedural states
CPT/HCPCS: 70551; 72141

== ENCOUNTER 2022-11-24 12:38 | Emergency (ER) | payer MEDICARE ==
[2022-11-24 13:52] VITALS: RESP 16
[2022-11-24] MEDS ORDERED: KETOROLAC 15 MG/ML 1 ML VIAL IM STA (14:31)
--- NOTE | 2022-11-24 14:57 | XR ---
EXAMINATION TYPE: XR Hip Complete RT DATE OF EXAM: 11/24/2022 COMPARISON: NONE HISTORY: Pain TECHNIQUE: 2 views submitted FINDINGS: There is no evidence of erosive change or acute fracture. Moderate concentric narrowing of the hip joint with hypertrophic change of the acetabulum. There is a enthesophytes involving the inferior pubic ramus and greater\lesser trochanter. There is sclerosis o f the right superior pubic ramus. IMPRESSION: 1. Moderate arthropathy correlate for femoral acetabular impingement. 2. Spurring along the trochanters can be associated with trochanteric bursitis. 3. Sclerosis superior pubic ramus may be related to bone island. Patient has a history of malignancy or prostate malignancy recommend bone scan to assess for metastases.
[2022-11-24] MEDS ORDERED: LIDOCAINE 5% PATCH TOPICAL SCH (15:00)
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
[2022-11-24 15:35] VITALS: BP 130/72; PULSE 62; TEMP 98.1
== END 2022-11-24 16:01 | disposition home or self-care (01) ==
LOC: EC 12:38
DX: M70.61 Trochanteric bursitis, right hip (principal); E78.5 Hyperlipidemia, unspecified; I10 Essential (primary) hypertension; J45.909 Unspecified asthma, uncomplicated; M19.90 Unspecified osteoarthritis, unspecified site; Z79.899 Other long term (current) drug therapy; Z91.012 Allergy to eggs
CPT/HCPCS: 73502; 99283; 96372; J1885

== ENCOUNTER → 2023-01-13 | Outpatient (CLI) | payer MEDICARE ==
[2023-01-13 13:16] LABS: African American GFR (CKD) >90 (>60 ml/min/1.73 sqM); Blood Urea Nitrogen 14 mg/dL (9-20); Non-African American GFR(CKD) 89 (>60 ml/min/1.73 sqM)
--- NOTE | 2023-01-14 08:12 | CT ---
EXAMINATION TYPE: CT angio neck DATE OF EXAM: 01/13/2023 HISTORY: light-headed COMPARISON: CT DLP: 281.8 mGycm. Automated Exposure Control for Dose Reduction was Utilized. TECHNIQUE: CTA scan of the head and neck is performed with IV Contrast, patient injected with 100 mL of Isovue 370, axial images are obtained, coronal and sagittal reformatted images are reviewed. 3D r econstructed images are created on an independent workstation and reviewed. FINDINGS: There is mild atherosclerotic changes of carotid artery. No significant sclerotic disease noted right . There is no evidence of significant hemodynamic stenosis of the bilateral carotid bifurcation. There is standard arch anatomy. Subclavian arteries are patent. Atherosclerotic change of the proxima l left common carotid artery. There is mild atherosclerotic change of the left subclavian artery. Left vertebral is dominant There is multilevel hypertrophic and degenerative changes of the spine. Previous surgery involving th e cervical spine. Multilevel facet arthropathy. Other: Visualized vertebrobasilar and carotid systems are patent with mild to moderate intracranial a therosclerotic change of the cavernous segment bilateral ICA. Orbits are symmetric. Intracranial structures are seen. IMPRESSION: 1. No significant hemodynamic stenosis of the carotid bifurcations. NASCET criteria was used in interpretation of this exam?
== END | disposition home or self-care (01) ==
LOC: RADCTMAIN 12:22
PROVIDERS: ATTEND Family Medicine
DX: R47.89 Other speech disturbances (principal); R42 Dizziness and giddiness
CPT/HCPCS: 82565; 84520; 70498; 36415; Q9967

== ENCOUNTER 2023-01-29 15:22 | Emergency (ER) | payer MEDICARE ==
[2023-01-29 15:49] VITALS: TEMP 98.2
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
[2023-01-29 17:31] VITALS: BP 129/80; PULSE 54; RESP 20
== END 2023-01-29 18:54 | disposition home or self-care (01) ==
LOC: EC 15:22
DX: R51.9 Headache, unspecified (principal); I10 Essential (primary) hypertension; R00.1 Bradycardia, unspecified; J45.909 Unspecified asthma, uncomplicated; G20.A1 Parkinson's disease without dyskinesia, without mention of fluctuations; Z20.822 Contact with and (suspected) exposure to COVID-19; Z79.899 Other long term (current) drug therapy; Z91.012 Allergy to eggs
CPT/HCPCS: 87636; 93005; 99284

== ENCOUNTER → 2023-02-05 | Outpatient (CLI) | payer OTHER ==
--- NOTE | 2023-02-06 09:06 | XR ---
EXAMINATION TYPE: XR cervical spine w flex/ext DATE OF EXAM: 02/05/2023 COMPARISON: NONE HISTORY: Pain TECHNIQUE: 7 views are submitted including flexion and extension lateral views. FINDINGS: The odontoid is intact. There are no compression deformities. The prevertebral soft tissue structur es are within normal limits. Hypertrophic spurring and facet arthropathy. Postsurgical changes C4-5 and C5-6 with disc spacers. Slight retrolisthesis of C5-6. IMPRESSION: 1. Postsurgical changes C4-5 and C5-6 with retrolisthesis of C5 relative to C6. 2. Multilevel facet arthropathy and foraminal encroachment suspected.
== END | disposition home or self-care (01) ==
LOC: RADXRMAIN 15:44
PROVIDERS: ATTEND Neurological Surgery
DX: M43.12 Spondylolisthesis, cervical region (principal); M47.812 Spondylosis without myelopathy or radiculopathy, cervical region; M48.02 Spinal stenosis, cervical region
CPT/HCPCS: 72052

== ENCOUNTER 2023-04-30 07:46 | Inpatient (IN) | payer MEDICARE ==
[2023-04-30] MEDS ORDERED: IBUPROFEN 600 MG TAB PO STA (08:55)
[2023-04-30] MEDS ORDERED: ACETAMINOPHEN TAB 500 MG TAB PO STA (08:55)
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
[2023-04-30] MEDS ORDERED: SODIUM CHLORIDE 0.9% 500 ML 500 ML IV SCH (09:00)
[2023-04-30 10:01] LABS: Basophils # (A) 0.1 k/uL (0-0.2); Basophils % (A) 0 %; Eosinophils # (A) 0.1 k/uL (0-0.7); Eosinophils % (A) 1 %; HCT 48.3 % (39.0-53.0); HGB 16.6 gm/dL (13.0-17.5); Lymphocytes # (A) 0.8 k/uL (1.0-4.8); Lymphocytes % (A) 5 %; MCH 30.6 pg (25.0-35.0); MCHC 34.4 g/dL (31.0-37.0); Monocytes # (A) 0.4 k/uL (0-1.0); Monocytes % (A) 2 %; Neutrophils # (A) 14.8 k/uL (1.3-7.7); Neutrophils % (A) 91 %; Platelet Count 211 k/uL (150-450); RBC 5.43 m/uL (4.30-5.90); RDW 12.2 % (11.5-15.5); WBC 16.3 k/uL (3.8-10.6)
[2023-04-30 10:32] LABS: ALT 189 U/L (4-49); AST 37 U/L (17-59); African American GFR (CKD) >90 (>60 ml/min/1.73 sqM); Albumin 3.8 g/dL (3.5-5.0); Alkaline Phosphatase 194 U/L (38-126); Anion Gap 13 mmol/L; Blood Urea Nitrogen 19 mg/dL (9-20); Calcium 8.9 mg/dL (8.4-10.2); Carbon Dioxide 24 mmol/L (22-30); Chloride 96 mmol/L (98-107); Glucose 104 mg/dL (74-99); Non-African American GFR(CKD) >90 (>60 ml/min/1.73 sqM); Potassium 4.6 mmol/L (3.5-5.1); Sodium 133 mmol/L (137-145); Total Bilirubin 1.5 mg/dL (0.2-1.3); Total Protein 7.3 g/dL (6.3-8.2)
[2023-04-30 10:41] LABS: Partial Thromboplastin Time 24.3 sec (22.0-30.0); Prothrombin Time 10.7 sec (10.0-12.5)
[2023-04-30 10:42] LABS: Appearance,Urine Cloudy (Clear); Bilirubin,Urine Negative (Negative); Blood,Urine Moderate (Negative); Color,Urine Yellow; Glucose,Urine (UA) Negative (Negative); Ketones,Urine 1+ (Negative); Leukocyte Esterase,Urine Large (Negative); Mucus,Urine Rare /hpf; Nitrite,Urine Negative (Negative); PH, Urine 7.5 (5.0-8.0); Protein,Urine Trace (Negative); RBC,Urine 20 /hpf (0-5); Squamous Epithelial Cell,Urine <1 /hpf (0-4); Urobilinogen,Urine <2.0 mg/dL (<2.0); WBC,Urine >182 /hpf (0-5)
--- NOTE | 2023-04-30 12:28 | XR ---
EXAMINATION TYPE: XR chest 2V DATE OF EXAM: 04/30/2023 COMPARISON: Prior chest x-ray June 14, 2022 HISTORY: Fever TECHNIQUE: Frontal and lateral views of the chest are obtained. FINDINGS: Low lung volumes are redemonstrated. There is no suspicious new focal air space opacity, pl eural effusion, or pneumothorax seen. The cardiac silhouette size is stable and within normal limits . The osseous structures are intact. IMPRESSION: No new acute pulmonary infiltrate. No significant change from prior.
[2023-04-30] MEDS ORDERED: ACETAMINOPHEN TAB 325 MG TAB PO PRN (13:25)
[2023-04-30] MEDS ORDERED: NALOXONE 0.4 MG/ML 1 ML VIAL IV PRN (13:25)
[2023-04-30] MEDS ORDERED: IBUPROFEN 400 MG TAB PO PRN (13:25)
[2023-04-30] MEDS: SODIUM CHLORIDE 0.9% 1,000 ML IV SCH ×3 (13:36→23:59)
[2023-04-30] MEDS: CARBIDOPA-LEVODOPA ER 50-200MG 1 EACH TABLET.ER PO SCH ×2 (17:49→21:32)
[2023-04-30] MEDS: HEPARIN SODIUM,PORCINE 5,000 UNIT/ML 1 ML VIAL SQ SCH ×2 (17:49→23:58)
[2023-04-30] MEDS: ATROPINE OPHTH SOLN 1% 5ML BTL LEFT EYE SCH (17:50)
[2023-04-30] MEDS: TIMOLOL 0.5% OPHTH DROPS 5 ML BTL RIGHT EYE SCH (17:51)
[2023-04-30] MEDS: OFLOXACIN 0.3% OPHTH DROPS 5 ML BOTTLE LEFT EYE SCH ×2 (17:52→21:33)
[2023-04-30] MEDS: prednisoLONE ACETATE 1% OPHTH DROPS 5 ML BTL BOTH EYES SCH ×2 (17:53→21:33)
[2023-04-30] MEDS: SODIUM CHLORIDE 5% OPHTH DROPS 15 ML BTL RIGHT EYE SCH ×2 (17:56→21:33)
[2023-04-30 20:55] LABS: Glucose,Whole Blood 144 mg/dL (70-110)
[2023-04-30] MEDS: MAGNESIUM OXIDE 400 MG TAB PO SCH (21:31)
[2023-04-30] MEDS: FAMOTIDINE 20 MG TAB PO SCH (21:32)
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
[2023-05-01 05:17] LABS: Glucose,Whole Blood 95 mg/dL (70-110)
[2023-05-01] MEDS: FAMOTIDINE 20 MG TAB PO SCH ×2 (08:24→21:52)
[2023-05-01] MEDS: CYANOCOBALAMIN 500 MCG TAB PO SCH (08:24)
[2023-05-01] MEDS: CARBIDOPA-LEVODOPA ER 50-200MG 1 EACH TABLET.ER PO SCH ×4 (08:24→21:52)
[2023-05-01] MEDS: CHOLECALCIFEROL 25 MCG (1000 IU) TABLET PO SCH (08:24)
[2023-05-01] MEDS: MAGNESIUM OXIDE 400 MG TAB PO SCH ×2 (08:24→21:52)
[2023-05-01] MEDS: LOSARTAN 25 MG TAB PO SCH (08:24)
[2023-05-01] MEDS: HEPARIN SODIUM,PORCINE 5,000 UNIT/ML 1 ML VIAL SQ SCH ×3 (08:24→23:24)
[2023-05-01] MEDS: OFLOXACIN 0.3% OPHTH DROPS 5 ML BOTTLE LEFT EYE SCH ×4 (08:25→21:54)
[2023-05-01] MEDS: TIMOLOL 0.5% OPHTH DROPS 5 ML BTL RIGHT EYE SCH ×2 (08:25→18:02)
[2023-05-01] MEDS: prednisoLONE ACETATE 1% OPHTH DROPS 5 ML BTL BOTH EYES SCH ×4 (08:25→22:32)
[2023-05-01] MEDS: SODIUM CHLORIDE 5% OPHTH DROPS 15 ML BTL RIGHT EYE SCH ×4 (08:25→21:54)
[2023-05-01] MEDS: ATROPINE OPHTH SOLN 1% 5ML BTL LEFT EYE SCH ×2 (08:26→18:02)
[2023-05-01 10:56] LABS: Basophils # (A) 0.04 X 10*3/uL (0.00-0.10); Basophils % (A) 0.2 %; Eosinophils # (A) 0.07 X 10*3/uL (0.04-0.35); Eosinophils % (A) 0.4 %; HGB 13.8 g/dL (13.0-17.0); Lymphocytes # (A) 1.18 X 10*3/uL (0.90-5.00); Lymphocytes % (A) 7.1 %; MCH 29.8 pg (27.0-32.0); MCHC 32.9 g/dL (32.0-37.0); MCV 90.7 FL (80.0-97.0); Mean Platelet Volume 11.4 FL (9.5-12.2); Monocytes # (A) 1.05 X 10*3/uL (0.20-1.00); Monocytes % (A) 6.3 %; NRBC Per 100 WBC 0 X 10*3/uL (0.00-0.01); Neutrophils # (A) 13.92 X 10*3/uL (1.80-7.70); Neutrophils % (A) 84.3 %; Platelet Count 184 X 10*3/uL (140-440); RBC 4.63 X 10*6/uL (4.40-5.60); RDW 12.6 % (11.5-14.5); WBC 16.54 X 10*3/uL (4.50-10.00)
[2023-05-01 11:05] LABS: ALT 51 U/L (10-49); AST 27 U/L (14-35); Albumin/Globulin Ratio 1.11 Ratio (1.60-3.17); Alkaline Phosphatase 151 U/L (41-126); BUN/Creat Ratio 22.12 Ratio (12.00-20.00); Blood Urea Nitrogen 17.7 mg/dL (9.0-27.0); Calcium 8.3 mg/dL (8.7-10.3); Carbon Dioxide 26.2 mmol/L (21.6-31.8); Chloride 96 mmol/L (96-109); Globulin 2.7 g/dL (1.6-3.3); Glucose 69 mg/dL (70-110); LDH 207 U/L (120-246); Potassium 4.5 mmol/L (3.5-5.5); Sodium 134 mmol/L (135-145); Total Bilirubin 1.1 mg/dL (0.3-1.2); Total Protein 5.7 g/dL (6.2-8.2)
[2023-05-01] MEDS: SODIUM CHLORIDE 0.9% 1,000 ML IV SCH ×2 (13:17→21:53)
[2023-05-01] MEDS ORDERED: VANCOMYCIN IV PER PHARMACY 1 EACH MISC MISCELLANE PRN (13:47)
[2023-05-01 16:22] LABS: Glucose,Whole Blood 104 mg/dL (70-110)
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
--- NOTE | 2023-05-02 05:13 | P.PN ---
Subjective Progress Note Date: 05/01/23 Patient is a 67-year-old male with a known history of Parkinson's disease, right, hand tremors, hypertension, hyperlipidemia, osteoarthritis, history of GI bleed, history of bowel resection due to diverticulitis, C4 C6 fusion surgery presents to ER due to generalized weakness and fatigue. Patient has been having symptoms for the past 2 days. He felt very weak and unable to get up and ambulate by himself. Patient usually walks with a walker and does have tremors due to Parkinson's disease. Patient states that he did have subjective fevers and chills. Denies any complaints of nausea or vomiting. No abdominal pain. Patient states that he noticed blood-tinged urine. No debbie blood or clots noted. Denies any dysuria or hematuria. Denies any focal weakness. Denies any recent illnesses. Patient was recently diagnosed with prostate cancer 1 week ago and is about to start treatment. Chest x-ray showed no new acute pulmonary infiltrate. No significant change from prior. EKG showed sinus tachycardia with heart rate 106 Laboratory data showed WBC 16.3 hemoglobin 16.6 and platelets 211 Sodium 133 potassium 4.6 chloride 96 bicarb is 24 BUN 19 and creatinine 0.74 and blood sugar 104 and calcium 8.9 total bili 1.5 AST 37 ALT 189 and alk phos 194 Urinalysis showed cloudy with trace protein 1+ glucose moderate blood and large leukocyte esterase with elevated RBCs and WBCs. COVID-19 PCR detected. On admission patient was febrile with Tmax 100.9 and tachycardic with heart rate 101 pulse ox 97% on room air. Blood pressure 140/73. 05/01/2023 Patient is seen and evaluated in follow-up today continued on antibiotics in the form of ceftriaxone with concerns of urinary tract infection with features of sepsis, present on admission. Patient also was noted to be COVID-19 positive. Patient reports he lives at home and has not been having pain or burning or decreased urinary output but did continue with fevers and feeling generally unwell. Patient does have history of Parkinson's and noted to have significant parkinsonian features on exam. Patient reports he walks with a cane and lives alone and will have PT/OT therapy evaluate the patient. Patient currently afebrile with no reported chest pain or shortness of breath. Preliminary blood cultures showing gram-negative bacilli and will follow-up with repeat cultures and consult infectious disease and appreciate input and recommendations. Review of systems: Constitutional: No reports of fatigue, no further fever, or chills Cardiovascular: No reports of chest pain or palpitations Respiratory: No reports of shortness of breath or cough GI: No reports of nausea, vomiting, or diarrhea : No reports of dysuria or retention Neurovascular: reports of generalized weakness All medications have been reviewed PHYSICAL EXAMINATION: Patient is lying in the bed asleep although arousable, alert and oriented. Weak and lethargic.. Appears elderly, well-developed, ill-appearing HEENT: Normocephalic. Neck is supple. Pupils reactive. Nostrils clear. Oral cavity is moist. Neck reveals no JVD, carotid bruits, or thyromegaly. CHEST EXAMINATION: Trachea is central. Symmetrical expansion. Bibasilar diminished sounds. No wheezing or rhonchi or crackles. CARDIAC: Normal S1, S2 with no gallops. No murmurs ABDOMEN: Soft. Bowel sounds present. Nontender. No organomegaly. No abdominal bruits. Extremities: reveal no edema. No clubbing or cyanosis Neurologically awake, alert, oriented x3. Able to move all extremities. Upper extremity tremors noted. Skin: No rash or skin lesions. Psychiatric: Cooperative. Non-suicidal, Musculoskeletal: No joint swelling or deformity. Parkinsonian movements noted of hands on exam Assessment: Acute COVID-19 infection symptoms for the past 2 days. Patient was vaccinated. Generalized weakness and fatigue and subjective fever and chills. Acute urinary tract infection, present on admission with sepsis Bacteremia, likely secondary to urinary tract infection with preliminary culture showing gram-negative bacilli Transaminitis Recently diagnosed prostate cancer about a week ago. Following with urology outpatient Parkinson's disease with bilateral upper extremity tremors Hypertension Hyperlipidemia Osteoarthritis History of moderate left central neck issues Prior history of C4 C6 fusion on 07/05/2020 History of bowel resection due to diverticulitis History of GI bleed. GI and DVT prophylaxis with Pepcid and heparin subcu Full code Plan: Patient will be continued on IV hydration with normal saline. Follow-up and repeat labs and monitor kidney functions. Replace electrolytes per protocol Patient was started on antibiotics, ceftriaxone 2 g every 24 hours and blood cultures coming back positive for gram-negative bacilli and will consult infectious disease and appreciate input and recommendations Patient does have recently diagnosed prostate cancer about a week ago with urology and has not been started on any treatment currently. Patient was scheduled outpatient for a PET scan although missed his appointment as he is hospitalized currently. Will need to be rescheduled Follow-up labs ordered including pro-calcitonin. Repeat blood cultures ordered and pending as well Continue with home medications as appropriate.. Continue with carbidopa/levodopa. Patient with overall weakness and reports lives alone and uses a cane will have physical therapy evaluate the patient The impression and plan of care has been dictated by Sasha Loya, Nurse Practitioner as directed. Dr. Maye MD I have performed a history and examination and MDM of this patient, discussed the same with the dictator, and agree with the dictator's assessment and plan as written ,documented as a scribe. Based on total visit time, I have performed more than 50% of the visit. Objective - Vital Signs Vital signs: Vital Signs Temp 99.2 F 05/01/23 07:20 Pulse 75 05/01/23 07:20 Resp 17 05/01/23 07:20 BP 149/73 05/01/23 07:20 Pulse Ox 98 05/01/23 07:20 FiO2 Intake & Output 04/30/23 05/01/23 05/01/23 18:59 06:59 18:59 Output Total 500 Balance -500 Weight 85.729 kg Output: Urine 500 Other: Voiding Method Urinal - Labs CBC & Chem 7: 05/01/23 05:55 05/01/23 05:55 Labs: Abnormal Lab Results - Last 24 Hours (Table) 04/30/23 04/30/23 04/30/23 Range/Units 09:11 09:11 09:11 WBC 16.3 H (3.8-10.6) k/uL Neutrophils # 14.8 H (1.3-7.7) k/uL Lymphocytes # 0.8 L (1.0-4.8) k/uL Sodium 133 L (137-145) mmol/L Chloride 96 L (98-107) mmol/L Glucose 104 H (74-99) mg/dL POC Glucose (mg/dL) (70-110) mg/dL Total Bilirubin 1.5 H (0.2-1.3) mg/dL ALT 189 H (4-49) U/L Alkaline Phosphatase 194 H (38-126) U/L Urine Protein Trace H (Negative) Urine Ketones 1+ H (Negative) Urine Blood Moderate H (Negative) Ur Leukocyte Esterase Large H (Negative) Urine RBC 20 H (0-5) /hpf Urine WBC >182 H (0-5) /hpf Urine WBC Clumps Few H (None) /hpf Urine Mucus Rare H (None) /hpf SARS-CoV-2 (PCR) (Not Detectd) 04/30/23 04/30/23 Range/Units 09:11 20:54 WBC (3.8-10.6) k/uL Neutrophils # (1.3-7.7) k/uL Lymphocytes # (1.0-4.8) k/uL Sodium (137-145) mmol/L Chloride (98-107) mmol/L Glucose (74-99) mg/dL POC Glucose (mg/dL) 144 H (70-110) mg/dL Total Bilirubin (0.2-1.3) mg/dL ALT (4-49) U/L Alkaline Phosphatase (38-126) U/L Urine Protein (Negative) Urine Ketones (Negative) Urine Blood (Negative) Ur Leukocyte Esterase (Negative) Urine RBC (0-5) /hpf Urine WBC (0-5) /hpf Urine WBC Clumps (None) /hpf Urine Mucus (None) /hpf SARS-CoV-2 (PCR) Detected A (Not Detectd) Microbiology - Last 24 Hours (Table) 04/30/23 09:30 Blood Culture Gram Stain - Preliminary Blood 04/30/23 09:45 Blood Culture Gram Stain - Preliminary Blood
--- NOTE | 2023-05-02 08:54 | US ---
EXAMINATION TYPE: US abdomen complete DATE OF EXAM: 05/02/2023 COMPARISON: NONE CLINICAL INDICATION: Male, 67 years old with history of UTI/Bacterema, elevated LFT; UTI, Elevated LF T's TECHNIQUE: Multiple sonographic images of the abdomen are obtained. FINDINGS: EXAM MEASUREMENTS: Liver Length: 12.1 cm Gallbladder Wall: 0.2 cm CBD: 0.3 cm Spleen: 8.3 cm Right Kidney: 10.1 x 5.2 x 5.3 cm Left Kidney: 10.0 x 6.1 x 4.9 cm POLYSTYRENE [employer] TENDER NOTES: Overlying bowel gas obscuring much of the abdominal structures Pancreas: Obscured by bowel gas Liver: Very limited views show no obvious abnormality Gallbladder: Lumen clear- limited visualization due to peristalsing bowel just anterior to GB Evidence for sonographic Aguayo's sign: No CBD: wnl Spleen: wnl Right Kidney: No evidence of hydro, limited views due to overlying bowel content Left Kidney: No evidence of hydro, limited views due to overlying bowel content Upper IVC: wnl Abd Aorta: Obscured by overlying bowel gas IMPRESSION: Limited assessment due to body habitus and prominent bowel gas. No gallstones or biliary ductal dilat ation seen.
[2023-05-02 09:21] LABS: Basophils # (A) 0.04 X 10*3/uL (0.00-0.10); Basophils % (A) 0.3 %; Eosinophils % (A) 0.8 %; HCT 39.8 % (39.6-50.0); HGB 13.5 g/dL (13.0-17.0); Lymphocytes # (A) 1.11 X 10*3/uL (0.90-5.00); Lymphocytes % (A) 8.3 %; MCH 29.7 pg (27.0-32.0); MCHC 33.9 g/dL (32.0-37.0); MCV 87.5 FL (80.0-97.0); Mean Platelet Volume 11.4 FL (9.5-12.2); Monocytes # (A) 1.13 X 10*3/uL (0.20-1.00); Monocytes % (A) 8.5 %; NRBC Per 100 WBC 0 X 10*3/uL (0.00-0.01); Neutrophils # (A) 10.71 X 10*3/uL (1.80-7.70); Neutrophils % (A) 80.5 %; Platelet Count 179 X 10*3/uL (140-440); RBC 4.55 X 10*6/uL (4.40-5.60); RDW 12.4 % (11.5-14.5)
[2023-05-02 09:40] LABS: ALT 38 U/L (10-49); AST 22 U/L (14-35); Albumin 2.9 g/dL (3.8-4.9); Albumin/Globulin Ratio 1.12 Ratio (1.60-3.17); Alkaline Phosphatase 152 U/L (41-126); BUN/Creat Ratio 20.86 Ratio (12.00-20.00); Blood Urea Nitrogen 14.6 mg/dL (9.0-27.0); Calcium 8.4 mg/dL (8.7-10.3); Chloride 99 mmol/L (96-109); Globulin 2.6 g/dL (1.6-3.3); Glucose 88 mg/dL (70-110); Magnesium 1.8 mg/dL (1.5-2.4); Potassium 4.4 mmol/L (3.5-5.5); Sodium 133 mmol/L (135-145); Total Bilirubin 0.8 mg/dL (0.3-1.2); Total Protein 5.5 g/dL (6.2-8.2)
[2023-05-02 09:48] LABS: Procalcitonin 1.82 ng/mL (0.02-0.09)
[2023-05-02] MEDS: CARBIDOPA-LEVODOPA ER 50-200MG 1 EACH TABLET.ER PO SCH ×4 (09:52→21:57)
[2023-05-02] MEDS: ASCORBIC ACID 500 MG TAB PO SCH (09:52)
[2023-05-02] MEDS: MAGNESIUM OXIDE 400 MG TAB PO SCH ×2 (09:52→21:57)
[2023-05-02] MEDS: CYANOCOBALAMIN 500 MCG TAB PO SCH (09:52)
[2023-05-02] MEDS: CHOLECALCIFEROL 25 MCG (1000 IU) TABLET PO SCH (09:52)
[2023-05-02] MEDS: FAMOTIDINE 20 MG TAB PO SCH ×2 (09:52→21:57)
[2023-05-02] MEDS: LOSARTAN 25 MG TAB PO SCH (09:52)
[2023-05-02] MEDS: TIMOLOL 0.5% OPHTH DROPS 5 ML BTL RIGHT EYE SCH ×2 (09:53→16:44)
[2023-05-02] MEDS: HEPARIN SODIUM,PORCINE 5,000 UNIT/ML 1 ML VIAL SQ SCH ×3 (09:53→23:11)
[2023-05-02] MEDS: prednisoLONE ACETATE 1% OPHTH DROPS 5 ML BTL BOTH EYES SCH ×4 (09:53→23:11)
[2023-05-02] MEDS: SODIUM CHLORIDE 5% OPHTH DROPS 15 ML BTL RIGHT EYE SCH ×4 (09:54→21:58)
[2023-05-02] MEDS: SODIUM CHLORIDE 0.9% 1,000 ML IV SCH ×2 (09:54→16:46)
[2023-05-02] MEDS: OFLOXACIN 0.3% OPHTH DROPS 5 ML BOTTLE LEFT EYE SCH ×4 (09:54→21:57)
[2023-05-02] MEDS: ATROPINE OPHTH SOLN 1% 5ML BTL LEFT EYE SCH ×2 (09:54→16:45)
[2023-05-02 10:35] LABS: Hepatitis B Surface Antigen Nonreactive
[2023-05-02 10:36] LABS: Hepatitis A Antibody IgM Nonreactive; Hepatitis B Core IgM Nonreactive; Hepatitis C IgG Antibody Nonreactive
--- NOTE | 2023-05-02 16:33 | P.PN ---
Subjective Progress Note Date: 05/02/23 Patient is a 67-year-old male with a known history of Parkinson's disease, right, hand tremors, hypertension, hyperlipidemia, osteoarthritis, history of GI bleed, history of bowel resection due to diverticulitis, C4 C6 fusion surgery presents to ER due to generalized weakness and fatigue. Patient has been having symptoms for the past 2 days. He felt very weak and unable to get up and ambulate by himself. Patient usually walks with a walker and does have tremors due to Parkinson's disease. Patient states that he did have subjective fevers and chills. Denies any complaints of nausea or vomiting. No abdominal pain. Patient states that he noticed blood-tinged urine. No debbie blood or clots noted. Denies any dysuria or hematuria. Denies any focal weakness. Denies any recent illnesses. Patient was recently diagnosed with prostate cancer 1 week ago and is about to start treatment. Chest x-ray showed no new acute pulmonary infiltrate. No significant change from prior. EKG showed sinus tachycardia with heart rate 106 Laboratory data showed WBC 16.3 hemoglobin 16.6 and platelets 211 Sodium 133 potassium 4.6 chloride 96 bicarb is 24 BUN 19 and creatinine 0.74 and blood sugar 104 and calcium 8.9 total bili 1.5 AST 37 ALT 189 and alk phos 194 Urinalysis showed cloudy with trace protein 1+ glucose moderate blood and large leukocyte esterase with elevated RBCs and WBCs. COVID-19 PCR detected. On admission patient was febrile with Tmax 100.9 and tachycardic with heart rate 101 pulse ox 97% on room air. Blood pressure 140/73. 05/01/2023 Patient is seen and evaluated in follow-up today continued on antibiotics in the form of ceftriaxone with concerns of urinary tract infection with features of sepsis, present on admission. Patient also was noted to be COVID-19 positive. Patient reports he lives at home and has not been having pain or burning or decreased urinary output but did continue with fevers and feeling generally unwell. Patient does have history of Parkinson's and noted to have significant parkinsonian features on exam. Patient reports he walks with a cane and lives alone and will have PT/OT therapy evaluate the patient. Patient currently afebrile with no reported chest pain or shortness of breath. Preliminary blood cultures showing gram-negative bacilli and will follow-up with repeat cultures and consult infectious disease and appreciate input and recommendations. 05/02/2023 Patient is evaluated today resting in bed. He is continued on IV ceftriaxone with blood culture showing klebsiella pneumoniae. Procalcitonin level 1.82. Sodium level 133. Continues on normal saline at 100. No acute complaints. Is noted to have a tremor mostly of the right hand. Review of systems: Constitutional: No reports of fatigue, no further fever, or chills Cardiovascular: No reports of chest pain or palpitations Respiratory: No reports of shortness of breath or cough GI: No reports of nausea, vomiting, or diarrhea : No reports of dysuria or retention Neurovascular: reports of generalized weakness All medications have been reviewed PHYSICAL EXAMINATION: Patient is lying in the bed asleep although arousable, alert and oriented. Weak and lethargic.. Appears elderly, well-developed, ill-appearing HEENT: Normocephalic. Neck is supple. Pupils reactive. Nostrils clear. Oral cavity is moist. Neck reveals no JVD, carotid bruits, or thyromegaly. CHEST EXAMINATION: Trachea is central. Symmetrical expansion. Bibasilar diminished sounds. No wheezing or rhonchi or crackles. CARDIAC: Normal S1, S2 with no gallops. No murmurs ABDOMEN: Soft. Bowel sounds present. Nontender. No organomegaly. No abdominal bruits. Extremities: reveal no edema. No clubbing or cyanosis Neurologically awake, alert, oriented x3. Able to move all extremities. Upper extremity tremors noted. Skin: No rash or skin lesions. Psychiatric: Cooperative. Non-suicidal, Musculoskeletal: No joint swelling or deformity. Parkinsonian movements noted of hands on exam Assessment: Acute COVID-19 infection symptoms for the past few days. Patient was vaccinated. Generalized weakness and fatigue and subjective fever and chills. Acute urinary tract infection, present on admission with sepsis Bacteremia, likely secondary to urinary tract infection with culture showing klebsiella pneumoniae Transaminitis Recently diagnosed prostate cancer about a week ago. Following with urology outpatient Parkinson's disease with bilateral upper extremity tremors Hypertension Hyperlipidemia Osteoarthritis History of moderate left central neck issues Prior history of C4 C6 fusion on 07/05/2020 History of bowel resection due to diverticulitis History of GI bleed. GI and DVT prophylaxis with Pepcid and heparin subcu Full code Plan: Patient will be continued on IV hydration with normal saline. Follow-up and repeat labs and monitor kidney functions. Replace electrolytes per protocol Patient was started on antibiotics, ceftriaxone 2 g every 24 hours and blood cultures showing klebsiella with repeats pending and infectious disease following closely. Patient does have recently diagnosed prostate cancer about a week ago with urology and has not been started on any treatment currently. Patient was scheduled outpatient for a PET scan although missed his appointment as he is hos pitalized currently. Will need to be rescheduled Follow-up labs ordered Repeat blood cultures ordered and pending as well Continue with home medications as appropriate.. Continue with carbidopa/levo dopa. Patient with overall weakness and reports lives alone and uses a cane will have physical therapy evaluate the patient The impression and plan of care has been dictated by Tania Madison Nurse Practitioner as directed. Dr. Maye MD I have performed a history and physical examination and medical decision making of this patient, discussed the same with the dictator, and agree with the dictators assessment and plan as written, documented as a scribe. Based on total visit time, I have performed more than 50% of this visit. Objective - Vital Signs Vital signs: Vital Signs Temp 98.1 F 05/02/23 08:00 Pulse 70 05/02/23 08:00 Resp 18 05/02/23 08:00 BP 143/81 05/02/23 08:00 Pulse Ox 99 05/02/23 08:00 FiO2 Intake & Output 05/01/23 05/02/23 05/02/23 18:59 06:59 18:59 Output Total 500 Balance -500 Output: Urine 500 Other: Voiding Method Urinal # Voids 4 # Bowel Movements 1 - Labs CBC & Chem 7: 05/02/23 05:56 05/02/23 05:56 Labs: Abnormal Lab Results - Last 24 Hours (Table) 05/01/23 05/01/23 05/02/23 Range/Units 05:55 05:55 05:56 WBC 16.54 H (4.50-10.00) X 10*3/uL Immature Gran # 0.28 H (0.00-0.04) X 10*3/uL Neutrophils # 13.92 H (1.80-7.70) X 10*3/uL Monocytes # 1.05 H (0.20-1.00) X 10*3/uL Sodium 134 L (135-145) mmol/L BUN/Creatinine Ratio 22.12 H (12.00-20.00) Ratio Glucose 69 L (70-110) mg/dL Calcium 8.3 L (8.7-10.3) mg/dL ALT 51 H (10-49) U/L Alkaline Phosphatase 151 H (41-126) U/L C-Reactive Protein 20.80 H (0.00-0.80) mg/dL Total Protein 5.7 L (6.2-8.2) g/dL Albumin 3.0 L (3.8-4.9) g/dL Albumin/Globulin Ratio 1.11 L (1.60-3.17) Ratio Procalcitonin 1.82 H (0.02-0.09) ng/mL 05/02/23 05/02/23 Range/Units 05:56 05:56 WBC 13.30 H (4.50-10.00) X 10*3/uL Immature Gran # 0.21 H (0.00-0.04) X 10*3/uL Neutrophils # 10.71 H (1.80-7.70) X 10*3/uL Monocytes # 1.13 H (0.20-1.00) X 10*3/uL Sodium 133 L (135-145) mmol/L BUN/Creatinine Ratio 20.86 H (12.00-20.00) Ratio Glucose (70-110) mg/dL Calcium 8.4 L (8.7-10.3) mg/dL ALT (10-49) U/L Alkaline Phosphatase 152 H (41-126) U/L C-Reactive Protein (0.00-0.80) mg/dL Total Protein 5.5 L (6.2-8.2) g/dL Albumin 2.9 L (3.8-4.9) g/dL Albumin/Globulin Ratio 1.12 L (1.60-3.17) Ratio Procalcitonin (0.02-0.09) ng/mL Microbiology - Last 24 Hours (Table) 04/30/23 09:45 Blood Culture Gram Stain - Preliminary Blood Blood Culture - Preliminary Gram Neg Bacilli 04/30/23 09:30 Blood Culture Gram Stain - Preliminary Blood Blood Culture - Preliminary Gram Neg Bacilli Assessment and Plan Time with Patient: Less than 30
[2023-05-03] MEDS: SODIUM CHLORIDE 0.9% 1,000 ML IV SCH ×3 (05:04→21:56)
[2023-05-03] MEDS: HEPARIN SODIUM,PORCINE 5,000 UNIT/ML 1 ML VIAL SQ SCH ×3 (08:47→23:03)
[2023-05-03] MEDS: CARBIDOPA-LEVODOPA ER 50-200MG 1 EACH TABLET.ER PO SCH ×4 (08:48→21:52)
[2023-05-03] MEDS: ASCORBIC ACID 500 MG TAB PO SCH (08:48)
[2023-05-03] MEDS: FAMOTIDINE 20 MG TAB PO SCH ×2 (08:48→21:52)
[2023-05-03] MEDS: prednisoLONE ACETATE 1% OPHTH DROPS 5 ML BTL BOTH EYES SCH ×4 (08:49→23:03)
[2023-05-03] MEDS: MAGNESIUM OXIDE 400 MG TAB PO SCH ×2 (08:49→21:52)
[2023-05-03] MEDS: LOSARTAN 25 MG TAB PO SCH (08:49)
[2023-05-03] MEDS: ATROPINE OPHTH SOLN 1% 5ML BTL LEFT EYE SCH ×2 (08:49→17:23)
[2023-05-03] MEDS: TIMOLOL 0.5% OPHTH DROPS 5 ML BTL RIGHT EYE SCH ×2 (08:49→17:22)
[2023-05-03] MEDS: CYANOCOBALAMIN 500 MCG TAB PO SCH (08:49)
[2023-05-03] MEDS: OFLOXACIN 0.3% OPHTH DROPS 5 ML BOTTLE LEFT EYE SCH ×4 (08:50→21:53)
[2023-05-03] MEDS: SODIUM CHLORIDE 5% OPHTH DROPS 15 ML BTL RIGHT EYE SCH ×4 (08:50→21:54)
[2023-05-03] MEDS: CHOLECALCIFEROL 25 MCG (1000 IU) TABLET PO SCH (08:51)
[2023-05-03 09:54] LABS: BUN/Creat Ratio 17.57 Ratio (12.00-20.00); Blood Urea Nitrogen 12.3 mg/dL (9.0-27.0); Carbon Dioxide 24.4 mmol/L (21.6-31.8); Chloride 101 mmol/L (96-109); Glucose 91 mg/dL (70-110); Potassium 4.3 mmol/L (3.5-5.5); Sodium 134 mmol/L (135-145)
[2023-05-03 09:55] LABS: Calcium 8.4 mg/dL (8.7-10.3)
[2023-05-03 10:05] LABS: Basophils # (A) 0.03 X 10*3/uL (0.00-0.10); Basophils % (A) 0.3 %; Eosinophils # (A) 0.11 X 10*3/uL (0.04-0.35); Eosinophils % (A) 1.2 %; HCT 37.8 % (39.6-50.0); HGB 12.8 g/dL (13.0-17.0); Lymphocytes # (A) 1.08 X 10*3/uL (0.90-5.00); Lymphocytes % (A) 11.9 %; MCH 29.4 pg (27.0-32.0); MCHC 33.9 g/dL (32.0-37.0); MCV 86.9 FL (80.0-97.0); Monocytes # (A) 0.81 X 10*3/uL (0.20-1.00); NRBC Per 100 WBC 0 X 10*3/uL (0.00-0.01); Neutrophils # (A) 6.86 X 10*3/uL (1.80-7.70); Neutrophils % (A) 75.9 %; Platelet Count 205 X 10*3/uL (140-440); RBC 4.35 X 10*6/uL (4.40-5.60); RDW 12.3 % (11.5-14.5); WBC 9.04 X 10*3/uL (4.50-10.00)
[2023-05-03] MEDS ORDERED: BENZOCAINE/MENTHOL LOZENG 1 EACH LOZENGE MUCOUS MEM PRN (14:56)
[2023-05-03] MEDS ORDERED: BENZONATATE 100 MG CAP PO PRN (14:56)
[2023-05-03] MEDS ORDERED: guaiFENesin SYRUP 100MG/5ML 200 MG/10 ML CUP PO PRN (14:56)
--- NOTE | 2023-05-03 14:58 | P.PN ---
Subjective Progress Note Date: 05/03/23 Patient is a 67-year-old male with a known history of Parkinson's disease, right, hand tremors, hypertension, hyperlipidemia, osteoarthritis, history of GI bleed, history of bowel resection due to diverticulitis, C4 C6 fusion surgery presents to ER due to generalized weakness and fatigue. Patient has been having symptoms for the past 2 days. He felt very weak and unable to get up and ambulate by himself. Patient usually walks with a walker and does have tremors due to Parkinson's disease. Patient states that he did have subjective fevers and chills. Denies any complaints of nausea or vomiting. No abdominal pain. Patient states that he noticed blood-tinged urine. No debbie blood or clots noted. Denies any dysuria or hematuria. Denies any focal weakness. Denies any recent illnesses. Patient was recently diagnosed with prostate cancer 1 week ago and is about to start treatment. Chest x-ray showed no new acute pulmonary infiltrate. No significant change from prior. EKG showed sinus tachycardia with heart rate 106 Laboratory data showed WBC 16.3 hemoglobin 16.6 and platelets 211 Sodium 133 potassium 4.6 chloride 96 bicarb is 24 BUN 19 and creatinine 0.74 and blood sugar 104 and calcium 8.9 total bili 1.5 AST 37 ALT 189 and alk phos 194 Urinalysis showed cloudy with trace protein 1+ glucose moderate blood and large leukocyte esterase with elevated RBCs and WBCs. COVID-19 PCR detected. On admission patient was febrile with Tmax 100.9 and tachycardic with heart rate 101 pulse ox 97% on room air. Blood pressure 140/73. 05/01/2023 Patient is seen and evaluated in follow-up today continued on antibiotics in the form of ceftriaxone with concerns of urinary tract infection with features of sepsis, present on admission. Patient also was noted to be COVID-19 positive. Patient reports he lives at home and has not been having pain or burning or decreased urinary output but did continue with fevers and feeling generally unwell. Patient does have history of Parkinson's and noted to have significant parkinsonian features on exam. Patient reports he walks with a cane and lives alone and will have PT/OT therapy evaluate the patient. Patient currently afebrile with no reported chest pain or shortness of breath. Preliminary blood cultures showing gram-negative bacilli and will follow-up with repeat cultures and consult infectious disease and appreciate input and recommendations. 05/02/2023 Patient is evaluated today resting in bed. He is continued on IV ceftriaxone with blood culture showing klebsiella pneumoniae. Procalcitonin level 1.82. Sodium level 133. Continues on normal saline at 100. No acute complaints. Is noted to have a tremor mostly of the right hand. 05/03/2023 Patient evaluated today sitting up in the chair. He is unable to take a deep breath which elicits coughing fit and will start the patient on robitussin for this and also recommending IS. Patient otherwise denies any shortness of breath. Repeat blood cultures pending and urine culture is negative. He remains on IV ceftriaxone for the klebsiella bacteremia and ID following closely. Today his white blood cell count has normalized to 9.04. Sodium 134. Review of systems: Constitutional: No reports of fatigue, no further fever, or chills Cardiovascular: No reports of chest pain or palpitations Respiratory: No reports of shortness of breath or cough GI: No reports of nausea, vomiting, or diarrhea : No reports of dysuria or retention Neurovascular: reports of generalized weakness All medications have been reviewed PHYSICAL EXAMINATION: Patient is lying in the bed asleep although arousable, alert and oriented. Weak and lethargic.. Appears elderly, well-developed, ill-appearing HEENT: Normocephalic. Neck is supple. Pupils reactive. Nostrils clear. Oral cavity is moist. Neck reveals no JVD, carotid bruits, or thyromegaly. CHEST EXAMINATION: Trachea is central. Symmetrical expansion. Bibasilar diminished sounds. No wheezing or rhonchi or crackles. CARDIAC: Normal S1, S2 with no gallops. No murmurs ABDOMEN: Soft. Bowel sounds present. Nontender. No organomegaly. No abdominal bruits. Extremities: reveal no edema. No clubbing or cyanosis Neurologically awake, alert, oriented x3. Able to move all extremities. Upper extremity tremors noted. Skin: No rash or skin lesions. Psychiatric: Cooperative. Non-suicidal, Musculoskeletal: No joint swelling or deformity. Parkinsonian movements noted of hands on exam Assessment: Acute COVID-19 infection symptoms for the past few days. Patient was vaccinated. Generalized weakness and fatigue and subjective fever and chills. Acute urinary tract infection, present on admission with sepsis Bacteremia, likely secondary to urinary tract infection with culture showing klebsiella pneumoniae Transaminitis Recently diagnosed prostate cancer about a week ago. Following with urology outpatient Parkinson's disease with bilateral upper extremity tremors Hypertension Hyperlipidemia Osteoarthritis History of moderate left central neck issues Prior history of C4 C6 fusion on 07/05/2020 History of bowel resection due to diverticulitis History of GI bleed. GI and DVT prophylaxis with Pepcid and heparin subcu Full code Plan: Patient will be continued on IV hydration with normal saline. Follow-up and repeat labs and monitor kidney functions. Replace electrolytes per protocol Patient was started on antibiotics, ceftriaxone 2 g every 24 hours and blood cultures showing klebsiella with repeats pending and infectious disease following closely. Continue with supportive care for the covid and cough patient is bronchospastic and unable to take a deep breath without coughing. Patient does have recently diagnosed prostate cancer about a week ago with urology and has not been started on any treatment currently. Patient was scheduled outpatient for a PET scan although missed his appointment as he is hospitalized currently. Will need to be rescheduled Follow-up labs ordered Repeat blood cultures ordered and pending as well Continue with home medications as appropriate.. Continue with carbidopa/levodop a. Patient with overall weakness and reports lives alone and uses a cane will have physical therapy evaluate the patient The impression and plan of care has been dictated by Tania Madison Nurse Practitioner as directed. Dr. Maye MD I have performed a history and physical examination and medical decision making of this patient, discussed the same with the dictator, and agree with the dictators assessment and plan as written, documented as a scribe. Based on total visit time, I have performed more than 50% of this visit. Objective - Vital Signs Vital signs: Vital Signs Temp 97.7 F 05/03/23 07:21 Pulse 77 05/03/23 07:21 Resp 21 05/03/23 07:21 BP 151/78 05/03/23 07:21 Pulse Ox 99 05/03/23 07:21 FiO2 Intake & Output 05/02/23 05/03/23 05/03/23 18:59 06:59 18:59 Output Total 500 700 201 Balance -500 -700 -201 Output: Urine 500 700 200 Stool 1 Other: Voiding Method Urinal Urinal # Bowel Movements 2 - Labs CBC & Chem 7: 05/03/23 06:28 05/03/23 06:28 Labs: Abnormal Lab Results - Last 24 Hours (Table) 05/02/23 05/02/23 05/02/23 Range/Units 05:56 05:56 05:56 WBC 13.30 H (4.50-10.00) X 10*3/uL Immature Gran # 0.21 H (0.00-0.04) X 10*3/uL Neutrophils # 10.71 H (1.80-7.70) X 10*3/uL Monocytes # 1.13 H (0.20-1.00) X 10*3/uL Sodium 133 L (135-145) mmol/L BUN/Creatinine Ratio 20.86 H (12.00-20.00) Ratio Calcium 8.4 L (8.7-10.3) mg/dL Alkaline Phosphatase 152 H (41-126) U/L Total Protein 5.5 L (6.2-8.2) g/dL Albumin 2.9 L (3.8-4.9) g/dL Albumin/Globulin Ratio 1.12 L (1.60-3.17) Ratio Procalcitonin 1.82 H (0.02-0.09) ng/mL Microbiology - Last 24 Hours (Table) 05/01/23 16:14 Urine Culture - Final Urine,Voided 05/01/23 13:57 Blood Culture - Preliminary Blood 04/30/23 09:45 Blood Culture Gram Stain - Final Blood Blood Culture - Final Klebsiella pneumoniae 04/30/23 09:30 Blood Culture Gram Stain - Final Blood Blood Culture - Final Klebsiella pneumoniae Assessment and Plan Time with Patient: Less than 30
[2023-05-04] MEDS: MAGNESIUM OXIDE 400 MG TAB PO SCH ×2 (08:18→21:20)
[2023-05-04] MEDS: ASCORBIC ACID 500 MG TAB PO SCH (08:18)
[2023-05-04] MEDS: HEPARIN SODIUM,PORCINE 5,000 UNIT/ML 1 ML VIAL SQ SCH ×3 (08:18→23:25)
[2023-05-04] MEDS: CARBIDOPA-LEVODOPA ER 50-200MG 1 EACH TABLET.ER PO SCH ×4 (08:18→21:20)
[2023-05-04] MEDS: ATROPINE OPHTH SOLN 1% 5ML BTL LEFT EYE SCH ×2 (08:19→17:43)
[2023-05-04] MEDS: LOSARTAN 25 MG TAB PO SCH (08:19)
[2023-05-04] MEDS: FAMOTIDINE 20 MG TAB PO SCH ×2 (08:19→21:20)
[2023-05-04] MEDS: CYANOCOBALAMIN 500 MCG TAB PO SCH (08:19)
[2023-05-04] MEDS: SODIUM CHLORIDE 0.9% 1,000 ML IV SCH ×2 (08:19→17:44)
[2023-05-04] MEDS: CHOLECALCIFEROL 25 MCG (1000 IU) TABLET PO SCH (08:19)
[2023-05-04] MEDS: prednisoLONE ACETATE 1% OPHTH DROPS 5 ML BTL BOTH EYES SCH ×4 (08:20→21:21)
[2023-05-04] MEDS: SODIUM CHLORIDE 5% OPHTH DROPS 15 ML BTL RIGHT EYE SCH ×4 (08:20→21:21)
[2023-05-04] MEDS: OFLOXACIN 0.3% OPHTH DROPS 5 ML BOTTLE LEFT EYE SCH ×4 (08:20→21:21)
[2023-05-04] MEDS: TIMOLOL 0.5% OPHTH DROPS 5 ML BTL RIGHT EYE SCH ×2 (08:20→17:43)
--- NOTE | 2023-05-04 14:52 | P.PN ---
Subjective Progress Note Date: 05/04/23 Patient is a 67-year-old male with a known history of Parkinson's disease, right, hand tremors, hypertension, hyperlipidemia, osteoarthritis, history of GI bleed, history of bowel resection due to diverticulitis, C4 C6 fusion surgery presents to ER due to generalized weakness and fatigue. Patient has been having symptoms for the past 2 days. He felt very weak and unable to get up and ambulate by himself. Patient usually walks with a walker and does have tremors due to Parkinson's disease. Patient states that he did have subjective fevers and chills. Denies any complaints of nausea or vomiting. No abdominal pain. Patient states that he noticed blood-tinged urine. No debbie blood or clots noted. Denies any dysuria or hematuria. Denies any focal weakness. Denies any recent illnesses. Patient was recently diagnosed with prostate cancer 1 week ago and is about to start treatment. Chest x-ray showed no new acute pulmonary infiltrate. No significant change from prior. EKG showed sinus tachycardia with heart rate 106 Laboratory data showed WBC 16.3 hemoglobin 16.6 and platelets 211 Sodium 133 potassium 4.6 chloride 96 bicarb is 24 BUN 19 and creatinine 0.74 and blood sugar 104 and calcium 8.9 total bili 1.5 AST 37 ALT 189 and alk phos 194 Urinalysis showed cloudy with trace protein 1+ glucose moderate blood and large leukocyte esterase with elevated RBCs and WBCs. COVID-19 PCR detected. On admission patient was febrile with Tmax 100.9 and tachycardic with heart rate 101 pulse ox 97% on room air. Blood pressure 140/73. 05/01/2023 Patient is seen and evaluated in follow-up today continued on antibiotics in the form of ceftriaxone with concerns of urinary tract infection with features of sepsis, present on admission. Patient also was noted to be COVID-19 positive. Patient reports he lives at home and has not been having pain or burning or decreased urinary output but did continue with fevers and feeling generally unwell. Patient does have history of Parkinson's and noted to have significant parkinsonian features on exam. Patient reports he walks with a cane and lives alone and will have PT/OT therapy evaluate the patient. Patient currently afebrile with no reported chest pain or shortness of breath. Preliminary blood cultures showing gram-negative bacilli and will follow-up with repeat cultures and consult infectious disease and appreciate input and recommendations. 05/02/2023 Patient is evaluated today resting in bed. He is continued on IV ceftriaxone with blood culture showing klebsiella pneumoniae. Procalcitonin level 1.82. Sodium level 133. Continues on normal saline at 100. No acute complaints. Is noted to have a tremor mostly of the right hand. 05/03/2023 Patient evaluated today sitting up in the chair. He is unable to take a deep breath which elicits coughing fit and will start the patient on robitussin for this and also recommending IS. Patient otherwise denies any shortness of breath. Repeat blood cultures pending and urine culture is negative. He remains on IV ceftriaxone for the klebsiella bacteremia and ID following closely. Today his white blood cell count has normalized to 9.04. Sodium 134. 05/04/2023 Patient is seen and evaluated in follow-up with infectious disease following maintained on ceftriaxone as urine cultures finalized as negative and blood culture showing Klebsiella bacteremia with most recent blood cultures being normal. Patient is being continued on supportive care for COVID-19 and remains on room air. Patient is significantly weak and physical therapy evaluated the patient recommend rehab although patient would like to go home. Will discuss further with case management after discussing again with patient on discharge planning. Patient is currently afebrile with no reported chest pain or shortness of breath. Patient continues to report significant weakness and difficulty with ambulation. Encouraged increased activity as tolerated and sitting up out of the bed more often. Review of systems: Constitutional: No reports of fatigue, no further fever, or chills Cardiovascular: No reports of chest pain or palpitations Respiratory: No reports of shortness of breath or cough GI: No reports of nausea, vomiting, or diarrhea : No reports of dysuria or retention Neurovascular: reports of generalized weakness All medications have been reviewed PHYSICAL EXAMINATION: Patient is lying in the bed asleep although arousable, alert and oriented. Weak, Appears elderly, well-developed, ill-appearing HEENT: Normocephalic. Neck is supple. Pupils reactive. Nostrils clear. Oral cavity is moist. Neck reveals no JVD, carotid bruits, or thyromegaly. CHEST EXAMINATION: Trachea is central. Symmetrical expansion. Bibasilar diminished sounds. No wheezing or rhonchi or crackles. CARDIAC: Normal S1, S2 with no gallops. No murmurs ABDOMEN: Soft. Bowel sounds present. Nontender. No organomegaly. No abdominal bruits. Extremities: reveal no edema. No clubbing or cyanosis Neurologically awake, alert, oriented x3. Able to move all extremities. Upper extremity tremors noted. Skin: No rash or skin lesions. Psychiatric: Cooperative. Non-suicidal, Musculoskeletal: No joint swelling or deformity. Parkinsonian movements noted of hands on exam Assessment: Acute COVID-19 infection symptoms for the past few days. Patient was vaccinated. Generalized weakness and fatigue and subjective fever and chills. Acute urinary tract infection, present on admission with sepsis Bacteremia, likely secondary to urinary tract infection with culture showing klebsiella pneumoniae Transaminitis Recently diagnosed prostate cancer about a week ago. Following with urology outpatient Parkinson's disease with bilateral upper extremity tremors Hypertension Hyperlipidemia Osteoarthritis History of moderate left central neck issues Prior history of C4 C6 fusion on 07/05/2020 History of bowel resection due to diverticulitis History of GI bleed. GI and DVT prophylaxis with Pepcid and heparin subcu Full code Plan: Patient will be continued on IV hydration with normal saline. Follow-up and rep eat labs and monitor kidney functions. Replace electrolytes per protocol Patient continued on ceftriaxone 2 g every 24 hours and blood cultures showing klebsiella with repeats pending and infectious disease following closely. Most recent blood culture negative, urine cultures were negative as well Continue with supportive care for the covid and cough patient is bronchospastic and unable to take a deep breath without coughing. Patient does have recently diagnosed prostate cancer about a week ago with urology and has not been started on any treatment currently. Patient was scheduled outpatient for a PET scan although missed his appointment as he is hospitalized currently. Will need to be rescheduled PT/OT therapy evaluated the patient recommending rehab with case management following and will discuss further with patient as patient reports he wanted to go home discharge Continue with home medications as appropriate.. Continue with carbidopa/levodopa. Possible discharge planning the next 24-48 hours The impression and plan of care has been dictated by Sasha Loya, Nurse Practitioner as directed. Dr. Cullen MD I have performed a history and examination and MDM of this patient, discussed the same with the dictator, and agree with the dictator's assessment and plan as written ,documented as a scribe. Based on total visit time, I have performed more than 50% of the visit. Objective - Vital Signs Vital signs: Vital Signs Temp 98.4 F 05/04/23 14:00 Pulse 75 05/04/23 14:00 Resp 18 05/04/23 02:00 BP 159/91 05/04/23 14:00 Pulse Ox 97 05/04/23 14:00 FiO2 Intake & Output 05/03/23 05/04/23 05/04/23 18:59 06:59 18:59 Intake Total 1345 360 Output Total 951 1400 200 Balance 394 -1400 160 Intake: Intake, IV Titration 625 Amount Sodium Chloride 0.9% 1, 525 000 ml @ 100 mls/hr IV . Q10H NURIA Rx#:[id number] cefTRIAXone 2 gm In 100 Sodium Chloride 0.9% 50 ml @ 100 mls/hr IVPB Q24HR NURIA Rx#:[id number] Oral 720 360 Output: Urine 950 1400 200 Stool 1 Other: Voiding Method Urinal Urinal # Voids 1 - Labs CBC & Chem 7: 05/03/23 06:28 05/03/23 06:28 Labs: Microbiology - Last 24 Hours (Table) 05/02/23 05:56 Blood Culture - Preliminary Blood 05/01/23 13:57 Blood Culture - Preliminary Blood
[2023-05-05 03:03] VITALS: RESP 17
[2023-05-05] MEDS: SODIUM CHLORIDE 0.9% 1,000 ML IV SCH ×2 (04:36→13:33)
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
[2023-05-05 08:35] LABS: Basophils # (A) 0.1 k/uL (0-0.2); Basophils % (A) 1 %; Eosinophils # (A) 0.1 k/uL (0-0.7); Eosinophils % (A) 2 %; HCT 39.6 % (39.0-53.0); HGB 13.7 gm/dL (13.0-17.5); Lymphocytes # (A) 1.8 k/uL (1.0-4.8); Lymphocytes % (A) 21 %; MCH 30.8 pg (25.0-35.0); MCHC 34.7 g/dL (31.0-37.0); MCV 88.9 fL (80.0-100.0); Mean Platelet Volume 9.9; Monocytes # (A) 0.7 k/uL (0-1.0); Monocytes % (A) 8 %; Neutrophils # (A) 5.6 k/uL (1.3-7.7); Neutrophils % (A) 66 %; Platelet Count 292 k/uL (150-450); RBC 4.46 m/uL (4.30-5.90); RDW 12.6 % (11.5-15.5); WBC 8.6 k/uL (3.8-10.6)
[2023-05-05 08:38] LABS: African American GFR (CKD) >90 (>60 ml/min/1.73 sqM); Anion Gap 8 mmol/L; Blood Urea Nitrogen 8 mg/dL (9-20); Calcium 8.4 mg/dL (8.4-10.2); Carbon Dioxide 24 mmol/L (22-30); Chloride 103 mmol/L (98-107); Glucose 83 mg/dL (74-99); Non-African American GFR(CKD) >90 (>60 ml/min/1.73 sqM); Potassium 4.5 mmol/L (3.5-5.1); Sodium 135 mmol/L (137-145)
[2023-05-05] MEDS: FAMOTIDINE 20 MG TAB PO SCH (08:39)
[2023-05-05] MEDS: ATROPINE OPHTH SOLN 1% 5ML BTL LEFT EYE SCH (08:39)
[2023-05-05] MEDS: CHOLECALCIFEROL 25 MCG (1000 IU) TABLET PO SCH (08:39)
[2023-05-05] MEDS: HEPARIN SODIUM,PORCINE 5,000 UNIT/ML 1 ML VIAL SQ SCH (08:39)
[2023-05-05] MEDS: CYANOCOBALAMIN 500 MCG TAB PO SCH (08:39)
[2023-05-05] MEDS: TIMOLOL 0.5% OPHTH DROPS 5 ML BTL RIGHT EYE SCH (08:40)
[2023-05-05] MEDS: MAGNESIUM OXIDE 400 MG TAB PO SCH (08:40)
[2023-05-05] MEDS: OFLOXACIN 0.3% OPHTH DROPS 5 ML BOTTLE LEFT EYE SCH ×2 (08:41→13:48)
[2023-05-05] MEDS: CARBIDOPA-LEVODOPA ER 50-200MG 1 EACH TABLET.ER PO SCH ×2 (08:41→13:47)
[2023-05-05] MEDS: LOSARTAN 25 MG TAB PO SCH (08:41)
[2023-05-05] MEDS: ASCORBIC ACID 500 MG TAB PO SCH (08:41)
[2023-05-05] MEDS: SODIUM CHLORIDE 5% OPHTH DROPS 15 ML BTL RIGHT EYE SCH ×2 (08:43→13:47)
[2023-05-05] MEDS: prednisoLONE ACETATE 1% OPHTH DROPS 5 ML BTL BOTH EYES SCH ×2 (08:44→13:48)
[2023-05-05 15:06] VITALS: BP 130/74; PULSE 68; TEMP 97.9
--- NOTE | 2023-05-06 06:48 | P.DS ---
Providers Date of admission: 04/30/23 13:40 Expected date of discharge: 05/05/23 Attending physician: Jamal Juan MD Consults: 05/01/23 13:34 Consult Physician Urgent Consulting Provider: Chris Zee Consult Reason/Comments: uti, covid, sepsis, bacteremia Do you want consulting provider notified?: Yes Primary care physician: Gayle Hernández Hospital Course: Final diagnosis Acute COVID-19 infection symptoms for the past few days. Patient was vaccinated. Generalized weakness and fatigue and subjective fever and chills. Acute urinary tract infection, present on admission with sepsis Bacteremia, likely secondary to urinary tract infection with culture showing klebsiella pneumoniae Transaminitis Recently diagnosed prostate cancer about a week ago. Following with urology outpatient Parkinson's disease with bilateral upper extremity tremors Hypertension Hyperlipidemia Osteoarthritis History of moderate left central neck issues Prior history of C4 C6 fusion on 07/05/2020 History of bowel resection due to diverticulitis History of GI bleed. GI and DVT prophylaxis with Pepcid and heparin subcu Full code Discharge disposition Patient is being discharged in a stable condition with guarded prognosis to home . Patient will follow-up with Dr. Hernández in the outpatient setting upon discharge. Patient is to continue with oral Ceftin twice daily for the next 10 days and close outpatient follow-up with urology as scheduled. Patient being rescheduled in the outpatient setting for PET scan for recent diagnosis of prostate cancer. Total time taken is greater than 35 minutes. Hospital course This is a 67-year-old male who was recently admitted with generalized weakness and fatigue along with fever found to have acute COVID-19 infection along with bacteremia and concerns for urinary tract infection, present on admission. Patient was recently seen and evaluated by urology outpatient and diagnosed with prostate cancer and was scheduled for outpatient PET scan although missed this appointment due to being hospitalized. PET scan being rescheduled patient will follow-up with urology outpatient. Infectious disease following closely and patient was maintained on antibiotics as cultures finalized showing klebsiella. Most recent cultures are negative and patient will continue on oral Ceftin twice daily for the next 10 days to complete the course. Initially patient with significant weakness was evaluated by physical therapy recommending rehab and patient agreeable. Patient would now like to go home and reports has help at home. Currently no reports of chest pain, shortness of breath, or palpitations. Patient is afebrile. No reports of nausea or vomiting and patient is tolerating diet. Patient will be discharged home today. Guarded prognosis Physical exam: Gen: This is a 67-year-old male who is awake, alert and oriented 3, well- developed: Enlarged HEENT: Head is atraumatic, normocephalic. Pupils equal, round. Sclerae is anicteric. NECK: Supple. No JVD. No lymphadenopathy. No thyromegaly. LUNGS: Clear to auscultation. No wheezes or rhonchi. No intercostal retractions. HEART: Regular rate and rhythm. No murmur. ABDOMEN: Soft. Bowel sounds are present. No masses. No tenderness. EXTREMITIES: No pedal edema. No calf tenderness. NEUROLOGICAL: Patient is awake, alert and oriented x3. Cranial nerves 2 through 12 are grossly intact. Parkinson tremor noted on upper extremities Please refer to medication reconciliation sheet for a list of medications. The impression and plan of care has been dictated by Sasha Loya, Nurse Practitioner as directed. Dr. Cullen MD I have performed a history and examination and MDM of this patient, discussed the same with the dictator, and agree with the dictator's assessment and plan as written ,documented as a scribe. Based on total visit time, I have performed more than 50% of the visit. Patient Condition at Discharge: Fair Plan - Discharge Summary Discharge Rx Participant: Yes New Discharge Prescriptions: New cefUROXime axetiL [Ceftin] 500 mg PO BID 10 Days #20 tab guaiFENesin SYRUP 100MG/5ML [Robitussin] 200 mg PO Q6HR PRN #240 ml PRN Reason: Cough Acetaminophen Tab [Tylenol] 650 mg PO Q6HR PRN tab PRN Reason: Mild Pain Or Fever > 100.5 Continue Carbidopa-Levodopa ER 50-200Mg [Sinemet CR 50-200 mg] 1 tab PO TID Timolol 0.5% Ophth Soln [Timoptic 0.5% Ophth Soln] 1 drop RIGHT EYE BID@0900,1700 Atropine Sulfate/Pf [Atropine 1% Eye Drops] 1 drop LEFT EYE BID@0900,1700 Sodium Chloride 5% Ophth Soln [Kirsten 128] 1 drops RIGHT EYE QID Magnesium Oxide [Magnesium] 500 mg PO BID Cholecalciferol [Vitamin D3 (25 Mcg = 1000 Iu)] 25 mcg PO DAILY Ascorbic Acid [Vitamin C] 1,000 mg PO DAILY Cyclobenzaprine [Flexeril] 10 mg PO HS Losartan [Cozaar] 25 mg PO DAILY #30 tab Ofloxacin 0.3% Ophth Soln [Ocuflox Ophth Soln] 1 drops LEFT EYE QID prednisoLONE ACETATE 1% OPHTH [Pred Forte 1%] 1 drops BOTH EYES QID Cyanocobalamin (Vitamin B-12) [Vitamin B-12] 1,000 mcg PO DAILY Discharge Medication List Carbidopa-Levodopa ER 50-200Mg [Sinemet CR 50-200 mg] 1 tab PO TID 10/18/19 [History] Cyclobenzaprine [Flexeril] 10 mg PO HS 05/26/22 [History] Losartan [Cozaar] 25 mg PO DAILY #30 tab 05/26/22 [Rx] Ascorbic Acid [Vitamin C] 1,000 mg PO DAILY 04/30/23 [History] Atropine Sulfate/Pf [Atropine 1% Eye Drops] 1 drop LEFT EYE BID@0900,1700 04/30/23 [History] Cholecalciferol [Vitamin D3 (25 Mcg = 1000 Iu)] 25 mcg PO DAILY 04/30/23 [History] Cyanocobalamin (Vitamin B-12) [Vitamin B-12] 1,000 mcg PO DAILY 04/30/23 [History] Magnesium Oxide [Magnesium] 500 mg PO BID 04/30/23 [History] Ofloxacin 0.3% Ophth Soln [Ocuflox Ophth Soln] 1 drops LEFT EYE QID 04/30/23 [History] Sodium Chloride 5% Ophth Soln [Kirsten 128] 1 drops RIGHT EYE QID 04/30/23 [History] Timolol 0.5% Ophth Soln [Timoptic 0.5% Ophth Soln] 1 drop RIGHT EYE BID@0900,1700 04/30/23 [History] prednisoLONE ACETATE 1% OPHTH [Pred Forte 1%] 1 drops BOTH EYES QID 04/30/23 [History] Acetaminophen Tab [Tylenol] 650 mg PO Q6HR PRN tab 05/05/23 [Rx] cefUROXime axetiL [Ceftin] 500 mg PO BID 10 Days #20 tab 05/05/23 [Rx] guaiFENesin SYRUP 100MG/5ML [Robitussin] 200 mg PO Q6HR PRN #240 ml 05/05/23 [Rx] Follow up Appointment(s)/Referral(s): Gayle Hernández MD [Primary Care Provider] - 1-2 days [facility], [NON-STAFF] - As Needed Carlos Singh MD [STAFF PHYSICIAN] - 1 Week Patient Instructions/Handouts: COVID-19 (Coronavirus Disease 2019) (DC) Activity/Diet/Wound Care/Special Instructions: Activity Limited until follow-up follow-up with primary care provider on discharge Follow-up with urology outpatient Continue taking medications prescribed follow up with urology outpatient in regards to previous PET scan that was scheduled Discharge Disposition: HOME WITH HOME HEALTH SERVICES
== END 2023-05-05 15:48 | disposition home health service (06) | DRG 871 ==
LOC: EC 07:46 → 6NMEDSUR 13:40 → OBSVTOIN 13:40 → 4SSUR 13:47
PROVIDERS: ADMIT Internal Medicine; ATTEND Internal Medicine
DX: A41.59 Other Gram-negative sepsis (principal); U07.1 COVID-19; N39.0 Urinary tract infection, site not specified; R74.01 Elevation of levels of liver transaminase levels; C61 Malignant neoplasm of prostate; E78.5 Hyperlipidemia, unspecified; I10 Essential (primary) hypertension; G20.A1 Parkinson's disease without dyskinesia, without mention of fluctuations; M19.90 Unspecified osteoarthritis, unspecified site; R31.9 Hematuria, unspecified; Z91.012 Allergy to eggs; Z94.7 Corneal transplant status; Z98.1 Arthrodesis status; Z28.21 Immunization not carried out because of patient refusal; J45.909 Unspecified asthma, uncomplicated; Z79.899 Other long term (current) drug therapy; Z90.49 Acquired absence of other specified parts of digestive tract; Z87.19 Personal history of other diseases of the digestive system
CPT/HCPCS: 36415; 71046; 76700; 80048; 80053; 80074; 81001; 83605; 83615; 83735; 84145; 85025; 85610; 85730; 86140; 87040; 87077; 87086; 87186; 87636; 93005; 96361; 96365; 96372; 99291

== ENCOUNTER → 2023-05-12 | Outpatient (CLI) | payer MEDICARE ==
[2023-05-12 08:10] LABS: African American GFR (CKD) >90 (>60 ml/min/1.73 sqM); Blood Urea Nitrogen 15 mg/dL (9-20); Non-African American GFR(CKD) >90 (>60 ml/min/1.73 sqM)
--- NOTE | 2023-05-12 08:39 | XR ---
EXAMINATION TYPE: XR chest 2V DATE OF EXAM: 05/12/2023 COMPARISON: 04/30/2023 TECHNIQUE: PA and lateral views submitted. HISTORY: Prostate cancer FINDINGS: The lungs are clear and there is no pneumothorax, pleural effusion, or focal pneumonia. Heart size normal and no overt failure. Osseous structures demonstrate hypertrophic and degenerative changes of the spine. AC joint arthropathy. Limited inspiration. IMPRESSION: 1. No acute process.
--- NOTE | 2023-05-12 09:50 | CT ---
EXAMINATION TYPE: CT abdomen pelvis w con DATE OF EXAM: 05/12/2023 COMPARISON: NONE HISTORY: 67-year-old male C6 1, prostate CA TECHNIQUE: Contiguous axial scanning of the abdomen and pelvis following administration of 100 ml Iso lisa 300 IV contrast. Delayed images through the kidneys and coronal/sagittal reconstructions perform ed. CT DLP: 1493 mGycm Automated exposure control for dose reduction was used. FINDINGS: LUNG BASES: No significant abnormality is appreciated. LIVER/GB: No significant abnormality is appreciated. PANCREAS: Mildly atrophic but otherwise without gross abnormality. SPLEEN: No significant abnormality is seen. ADRENALS: No significant abnormality is seen. KIDNEYS: A couple tiny cortical cyst right kidney measuring up to 1.0 cm. 6 mm left kidney. Symmetric uptake and excretion of contrast from both kidneys. BOWEL: A few small bowel loops clustered in dilated up to 4.7 cm in the right upper quadrant below th e gallbladder fossa on axial image 26 as well as coronal images 26 and 41. No discrete transition poi nt is seen. No other dilated small bowel loops. Moderate overall stool burden. No pericolic inflammatory change. LYMPH NODES: No significant abnormality is seen. OTHER: No significant abnormality is seen. PELVIS: Bladder is urine distended. Prostate gland is heterogeneous and mildly enlarged at 4.5 cm wid e. Multiple pelvic phleboliths. No abnormal fluid collection in the pelvis or pelvic lymphadenopathy seen. BONES: Mild to moderate degenerative change at the hips. Degenerative bony ankylosis of the SI joints . Heterotopic ossification of the iliac crests. The lower thoracic spine. Advanced hypertrophic facet arthropathy throughout the lumbar spine. IMPRESSION: 1. MILDLY ENLARGED AND HETEROGENEOUS PROSTATE GLAND MEASURING 4.5 CM WIDE. THE HETEROGENEITY MAY REFL ECT THE PATIENT'S REPORTED PROSTATE CANCER. 2. NO SUSPICIOUS LYMPHADENOPATHY OR EVIDENCE FOR METASTATIC DISEASE IN THE ABDOMEN OR PELVIS. 3. CLUSTERED DILATED SMALL BOWEL LOOPS RIGHT UPPER QUADRANT MEASURING UP TO 4.7 CM. THIS MAY REPRESEN T A REGIONAL ILEUS/ENTERITIS. PARTIAL SMALL BOWEL OBSTRUCTION CONSIDERED LESS LIKELY NO DISCRETE T RANSITION POINT IS SEEN. FOLLOW-UP CLINICALLY INDICATED. 4. MODERATE STOOL BURDEN.
== END | disposition home or self-care (01) ==
LOC: RADCTMAIN 07:22
PROVIDERS: ATTEND Urology
DX: N40.0 Benign prostatic hyperplasia without lower urinary tract symptoms (principal); C61 Malignant neoplasm of prostate; K56.41 Fecal impaction
CPT/HCPCS: 82565; 84520; 71046; 74177; 36415; Q9967

== ENCOUNTER → 2023-05-19 | Outpatient (CLI) | payer MEDICARE ==
--- NOTE | 2023-05-19 14:47 | NM ---
EXAMINATION TYPE: NM bone scan whole body DATE OF EXAM: 05/19/2023 COMPARISON: CT abdomen and pelvis 05/12/2023 CLINICAL INDICATION: Male, 67 years old with history of C61 PROSTATE CA; Delayed whole-body scanning was performed following the injection of 22.9 mCi Tc 99m MDP. Images acq uired 5.5 hours post injection. Multiple scintigraphic images of the appendicular and axial skeleton obtained with small [id number] images of the chest and abdomen and pelvis obtained. FINDINGS: No abnormal uptake is identified within the appendicular or axial skeleton to suggest metastatic dise ase. There is increased uptake within the bilateral shoulder, sternoclavicular, lumbar spine, both knees, and sacroiliac joints consistent with degenerative changes. No other photopenic areas or areas of in creased activity are identified. Physiologic radiotracer activity is demonstrated in the kidneys and bladder. IMPRESSION: No scintigraphic evidence for metastatic disease.
== END | disposition home or self-care (01) ==
LOC: RADNMMAIN 07:24
PROVIDERS: ATTEND Urology
DX: C61 Malignant neoplasm of prostate (principal)
CPT/HCPCS: 78306; A9503

== ENCOUNTER → 2023-08-21 | Outpatient (CLI) | payer MEDICARE ==
--- NOTE | 2023-08-22 07:53 | PE ---
EXAMINATION TYPE: PET CT fusion skull to thigh DATE OF EXAM: 08/21/2023 CLINICAL INDICATION:Male, 68 years old with history of K44.9 DIAPHRAGMATIC HERNIA WITHOUT OBSTRUCTION OR; TECHNIQUE: Following the intravenous administration of 4.44 mCi of Ga-68 Illuccix (PSMA), whole bod y images are performed from the skull base to the midthigh. Images are reviewed on the computer in t he coronal, axial, and sagittal planes. Reconstructed rotating images are created on independent wor kstation and reviewed on the computer. A non-contrast CT is performed in conjunction with the PET s can. CT DLP: 656 mGycm, Automated exposure control for dose reduction was used. COMPARISON: CT 05/12/2023, PET/CT None, FINDINGS: Mediastinal SUV mean is 1.8. Hepatic parenchyma SUV mean is 10.36. SKULL BASE AND NECK: No suspicious radiotracer activity. CHEST, MEDIASTINUM, AND HILAR REGION: No suspicious radiotracer activity. ABDOMEN AND PELVIS: * There is intense uptake within the prostate gland within the central portion mid gland max SUV 9.3 on the right and 6.9 on the left. * No additional areas of abnormal uptake identified. * No definitive enlarged greater than 1.0 cm with uptake identified. MUSCULOSKELETAL STRUCTURES: No suspicious radiotracer activity. OTHER CT: Large stool burden throughout the colon. High density appendicoliths in the appendix lumen measuring up to 7 mm. Prostatomegaly. IMPRESSION: Mildly limited exam due to background hazy radiotracer uptake. Bilateral prostate gland radiotracer u ptake concerning for prostate adenocarcinoma. Correlation with prostate MRI and tissue sampling. No d efinitive evidence for metastatic disease at this time however evaluation limited due to noisy backgr ound uptake.
== END | disposition home or self-care (01) ==
LOC: RADPETMAIN 14:59
PROVIDERS: ATTEND Radiology Radiation Oncology
DX: C61 Malignant neoplasm of prostate (principal); K44.9 Diaphragmatic hernia without obstruction or gangrene
CPT/HCPCS: 78815; A9596

== ENCOUNTER → 2023-09-08 | Outpatient (CLI) | payer MEDICARE ==
[2023-09-08 18:38] LABS: Basophils # (A) 0.04 X 10*3/uL (0.00-0.10); Basophils % (A) 0.7 %; Eosinophils # (A) 0.16 X 10*3/uL (0.04-0.35); Eosinophils % (A) 2.7 %; HCT 45.7 % (39.6-50.0); HGB 15.3 g/dL (13.0-17.0); Lymphocytes # (A) 2.22 X 10*3/uL (0.90-5.00); Lymphocytes % (A) 37.2 %; MCH 29.3 pg (27.0-32.0); MCHC 33.5 g/dL (32.0-37.0); MCV 87.5 FL (80.0-97.0); Mean Platelet Volume 12.4 FL (9.5-12.2); Monocytes # (A) 0.47 X 10*3/uL (0.20-1.00); Monocytes % (A) 7.9 %; NRBC Per 100 WBC 0 X 10*3/uL (0.00-0.01); Neutrophils # (A) 3.07 X 10*3/uL (1.80-7.70); Neutrophils % (A) 51.3 %; Platelet Count 196 X 10*3/uL (140-440); RBC 5.22 X 10*6/uL (4.40-5.60); RDW 12.3 % (11.5-14.5); WBC 5.97 X 10*3/uL (4.50-10.00)
[2023-09-08 20:25] LABS: BUN/Creat Ratio 20.22 Ratio (12.00-20.00); Blood Urea Nitrogen 18.2 mg/dL (9.0-27.0); Calcium 9.3 mg/dL (8.7-10.3); Chloride 102 mmol/L (96-109); Glucose 107 mg/dL (70-110); Potassium 4.8 mmol/L (3.5-5.5); Sodium 140 mmol/L (135-145)
== END | disposition home or self-care (01) ==
LOC: LABPAT 12:31
PROVIDERS: ATTEND Urology
DX: Z01.812 Encounter for preprocedural laboratory examination (principal); C61 Malignant neoplasm of prostate
CPT/HCPCS: 36415; 80048; 85025

== ENCOUNTER 2023-09-15 12:04 | Day surgery (SDC) | payer MEDICARE ==
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
[~2023-09-15 12:04] MED LIST changes: +DEXAMETHASONE SOD PHOSPHATE 4 MG/ML 1 ML VIAL IV ONE; +HYDROmorphone 0.5 MG/0.5 ML SYRINGE IVP PRN; +LIDOCAINE 1% (10MG/ML) FOR IV START INTRADERMA PRN; +MIDAZOLAM 2 MG/2 ML VIAL IV PRN; +ONDANSETRON 4 MG/2 ML VIAL IVP ONE; -SIMETHICONE 40 MG/0.6 ML DROPS 2,000 MG/30 ML BOTTLE PO ONE
[2023-09-15] MEDS: LACTATED RINGERS 1,000 ML IV SCH (12:55)
[2023-09-15] MEDS ORDERED: diphenhydrAMINE 50 MG/ML 1 ML VIAL ONE (13:21)
[2023-09-15] MEDS ORDERED: MIDAZOLAM 2 MG/2 ML VIAL ONE (13:21)
[2023-09-15] MEDS ORDERED: fentaNYL (PF) 50 MCG/ML 2 ML AMP ONE (13:21)
[2023-09-15] MEDS: LIDOCAINE 2% INJ 20 MG/ML SQ ONE ×2 (13:26)
[2023-09-15 13:30] VITALS: TEMP 96.9
[2023-09-15 14:27] VITALS: BP 102/64; PULSE 50
[2023-09-15 14:28] VITALS: RESP 20
--- NOTE | 2023-09-15 14:31 | P.OP ---
Date of Procedure: 09/15/23 Preoperative Diagnosis: Prostate cancer Postoperative Diagnosis: Same Procedure(s) Performed: SpaceOAR gel placement Implants: SpaceOAR gel Anesthesia: MAC Surgeon: Jhonny العلي Estimated Blood Loss (ml): 1 Pathology: none sent Condition: stable Disposition: PACU Indications for Procedure: This is a 68-year-old male with history of [place] 9(4+5) prostate cancer, elected to proceed with radiation therapy. Presents today for SpaceOAR gel placement. Risk benefit and rationale of surgery was discussed with him in detail. Aware the risk of bleeding infection, and potential of developing rectal toxicity even with a spaceOR placement Description of Procedure: The patient was taken to the operating room and placed in the dorsolithotomy position, with his legs supported in Gaurang stirrups. The external genitalia was prepped and draped sterilely. The transrectal ultrasound probe was placed intrarectally. The prostate was imaged. The probe was then placed within the stabilizing stand. A spinal needle was advanced under ultrasonic guidance to the level of the urogenital diaphragm, and lidocaine was used to infiltrate the tissues as the needle was withdrawn. Next, the SpaceOAR needle was passed through the midline of the perineum, 1-2 cm anterior to the anal opening. The needle was slowly advanced under ultrasonic guidance until the needle tip was located within the fat plane between the prostate and rectum, at the level of the mid prostate gland. The needle was confirmed to be midline on the axial imaging. A small amount of normal saline was injected for hydrodissection. Next, the SpaceOAR components were mixed and loaded into the Y connector per protocol. The Y connector was then connected to the needle, and the components were injected slowly over a course of approximately 10 seconds. A total of 8 ml was injected. Significant distance was created between the prostate and rectum, as desired. It should be noted that at no point was there any concern of rectal perforation. The needle was withdrawn, as well as the transrectal ultrasound probe, and the procedure was terminated. The patient tolerated the procedure well and was taken to the recovery room in stable condition
== END 2023-09-15 14:42 | disposition home or self-care (01) ==
LOC: OR 12:04
PROVIDERS: ATTEND Urology
DX: C61 Malignant neoplasm of prostate (principal); I10 Essential (primary) hypertension; E78.5 Hyperlipidemia, unspecified; J45.909 Unspecified asthma, uncomplicated; G20.A1 Parkinson's disease without dyskinesia, without mention of fluctuations; M19.90 Unspecified osteoarthritis, unspecified site; Z98.890 Other specified postprocedural states; Z98.41 Cataract extraction status, right eye; Z98.42 Cataract extraction status, left eye; Z79.899 Other long term (current) drug therapy; Z91.012 Allergy to eggs
CPT/HCPCS: 55874; C1889; J2001; J2250; J1200; J0690; J3010

== ENCOUNTER 2024-01-11 14:05 | Emergency (ER) | payer MEDICARE ==
[2024-01-11 14:19] VITALS: RESP 18
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
[2024-01-11 15:37] LABS: Basophils % (A) 1 %; Eosinophils # (A) 0.1 k/uL (0-0.7); Eosinophils % (A) 2 %; HCT 40.2 % (39.0-53.0); HGB 13.4 gm/dL (13.0-17.5); Lymphocytes # (A) 0.7 k/uL (1.0-4.8); Lymphocytes % (A) 17 %; MCH 31.3 pg (25.0-35.0); MCHC 33.2 g/dL (31.0-37.0); MCV 94.2 fL (80.0-100.0); Mean Platelet Volume 9.7; Monocytes # (A) 0.3 k/uL (0-1.0); Monocytes % (A) 8 %; Neutrophils % (A) 70 %; Platelet Count 182 k/uL (150-450); RBC 4.27 m/uL (4.30-5.90); RDW 12.8 % (11.5-15.5); WBC 4.3 k/uL (3.8-10.6)
[2024-01-11 15:43] LABS: Appearance,Urine Clear (Clear); Bilirubin,Urine Negative (Negative); Blood,Urine Negative (Negative); Color,Urine Colorless; Glucose,Urine (UA) Negative (Negative); Ketones,Urine Negative (Negative); Leukocyte Esterase,Urine Negative (Negative); Nitrite,Urine Negative (Negative); PH, Urine 6.5 (5.0-8.0); Protein,Urine Negative (Negative); Specific Gravity,Urine 1.012 (1.001-1.035); Urobilinogen,Urine <2.0 mg/dL (<2.0)
[2024-01-11 15:46] LABS: Partial Thromboplastin Time 25.8 sec (22.0-30.0); Prothrombin Time 10.8 sec (10.0-12.5)
[2024-01-11 15:49] LABS: ALT 8 U/L (4-49); African American GFR (CKD) >90 (>60 ml/min/1.73 sqM); Albumin 4.1 g/dL (3.5-5.0); Anion Gap 6 mmol/L; Blood Urea Nitrogen 18 mg/dL (9-20); Calcium 9.2 mg/dL (8.4-10.2); Carbon Dioxide 31 mmol/L (22-30); Chloride 101 mmol/L (98-107); Glucose 93 mg/dL (74-99); Non-African American GFR(CKD) >90 (>60 ml/min/1.73 sqM); Sodium 138 mmol/L (137-145); Total Bilirubin 0.7 mg/dL (0.2-1.3); Total Protein 7.1 g/dL (6.3-8.2)
[2024-01-11 15:57] LABS: AST 32 U/L (17-59); Alkaline Phosphatase 80 U/L (38-126); Potassium 4.8 mmol/L (3.5-5.1)
--- NOTE | 2024-01-11 15:57 | XR ---
EXAMINATION TYPE: XR chest 2V DATE OF EXAM: 01/11/2024 COMPARISON: 05/12/2023 HISTORY: Dysrhythmia TECHNIQUE: Frontal and lateral views of the chest are obtained. FINDINGS: There is no focal air space opacity, pleural effusion, or pneumothorax seen. The cardiac silhouette size is within normal limits. The osseous structures are intact. IMPRESSION: No acute cardiopulmonary process. [facility], Workstation: [id number] 01/11/2024 3:55 PM
[2024-01-11 15:58] LABS: Magnesium 1.8 mg/dL (1.6-2.3)
[2024-01-11 16:31] VITALS: BP 120/76; PULSE 52; TEMP 98.2
== END 2024-01-11 16:31 | disposition home or self-care (01) ==
LOC: EC 14:05
DX: E87.70 Fluid overload, unspecified
CPT/HCPCS: 36415; 71046; 80053; 81003; 83735; 84484; 85025; 85610; 85730; 93005; 99285

== ENCOUNTER → 2024-01-19 | Outpatient (CLI) | payer MEDICARE, OTHER ==
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
== END | disposition home or self-care (01) ==
LOC: RADMRIMAIN 16:36
PROVIDERS: ATTEND Neurological Surgery
DX: M48.02 Spinal stenosis, cervical region
CPT/HCPCS: 72141; 72146

== ENCOUNTER 2024-03-04 19:00 | Inpatient (IN) | payer MEDICARE ==
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
[2024-03-04] MEDS: LORazepam 2 MG/ML INJ IV STA (19:52)
[2024-03-04] MEDS: SODIUM CHLORIDE 0.9% 1,000 ML IV STA (19:52)
[2024-03-04 20:19] LABS: Basophils % (A) 0 %; Eosinophils # (A) 0.1 k/uL (0-0.7); Eosinophils % (A) 2 %; HCT 39.3 % (39.0-53.0); HGB 13.3 gm/dL (13.0-17.5); Lymphocytes # (A) 1.1 k/uL (1.0-4.8); Lymphocytes % (A) 15 %; MCH 30.6 pg (25.0-35.0); MCHC 33.7 g/dL (31.0-37.0); MCV 90.6 fL (80.0-100.0); Mean Platelet Volume 8.5; Monocytes # (A) 0.4 k/uL (0-1.0); Monocytes % (A) 6 %; Neutrophils # (A) 5.4 k/uL (1.3-7.7); Neutrophils % (A) 75 %; Platelet Count 205 k/uL (150-450); RBC 4.33 m/uL (4.30-5.90); RDW 12.9 % (11.5-15.5); WBC 7.1 k/uL (3.8-10.6)
[2024-03-04 20:23] LABS: ALT 17 U/L (4-49); AST 54 U/L (17-59); African American GFR (CKD) >90 (>60 ml/min/1.73 sqM); Albumin 4.1 g/dL (3.5-5.0); Alkaline Phosphatase 88 U/L (38-126); Anion Gap 4 mmol/L; Blood Urea Nitrogen 35 mg/dL (9-20); Calcium 8.9 mg/dL (8.4-10.2); Carbon Dioxide 27 mmol/L (22-30); Chloride 104 mmol/L (98-107); Glucose 89 mg/dL (74-99); Magnesium 1.9 mg/dL (1.6-2.3); Non-African American GFR(CKD) 85 (>60 ml/min/1.73 sqM); Phosphorus 3.8 mg/dL (2.5-4.5); Potassium 4.7 mmol/L (3.5-5.1); Sodium 135 mmol/L (137-145); Total Bilirubin 0.5 mg/dL (0.2-1.3); Total Protein 6.9 g/dL (6.3-8.2)
[2024-03-04 20:28] LABS: Partial Thromboplastin Time 23.9 sec (22.0-30.0)
[2024-03-04 20:32] LABS: NT-Pro-B-Type Natriuretic Pept 106 pg/mL
--- NOTE | 2024-03-04 20:56 | CT ---
EXAMINATION TYPE: CT brain wo con DATE OF EXAM: 03/04/2024 8:35 PM COMPARISON: 08/21/2023. CLINICAL INDICATION: Male, 68 years old with history of weakness, generalized weakness that started t his morning. TECHNIQUE: Brain: Axial CT images of the brain were obtained with coronal and sagittal reformats created and rev iewed. Contrast used: None. Oral contrast used: None. CT DLP: 1178.4 mGycm, Automated exposure control for dose reduction was used. FINDINGS: Brain: Extra-axial spaces: No abnormal extra-axial fluid collections. Ventricular system: Within normal limits Cerebral parenchyma: No acute intraparenchymal hemorrhage or mass effect. The porter-white junction is well differentiated. Scattered hypoattenuating areas are seen within the white matter. Cerebellum: Unremarkable. Mass effect: No evidence of midline shift. Intracranial vasculature: Atherosclerotic calcifications of the intracranial vessels. Soft tissues: Normal. Calvarium/osseous structures: No depressed skull fracture. Paranasal sinuses and mastoid air cells: Mild scattered paranasal sinus disease. Visualized orbits: Orbital contents are intact. Postsurgical changes to the left globe. IMPRESSION: 1. No acute intracranial process. 2. Nonspecific white matter changes, likely secondary to chronic small vessel ischemic disease. [facility], , 03/04/2024 8:54 PM
--- NOTE | 2024-03-04 21:00 | XR ---
EXAMINATION TYPE: XR chest 1V portable DATE OF EXAM: 03/04/2024 8:44 PM COMPARISON: Chest radiographs from 01/11/2024 CLINICAL INDICATION: Male, 68 years old with history of pain TECHNIQUE: XR chest 1V portable Frontal view of the chest. FINDINGS: Lungs/Pleura: There is no evidence of pleural effusion, focal consolidation, or pneumothorax. Pulmonary vascularity: Unremarkable. Heart/mediastinum: Cardiomediastinal silhouette is unremarkable. Musculoskeletal: No acute osseous pathology. IMPRESSION: No acute cardiopulmonary disease/process. [facility], , 03/04/2024 8:58 PM
[2024-03-04 21:05] LABS: Appearance,Urine Clear (Clear); Bilirubin,Urine Negative (Negative); Blood,Urine Negative (Negative); Color,Urine Colorless; Glucose,Urine (UA) Negative (Negative); Ketones,Urine Negative (Negative); Leukocyte Esterase,Urine Negative (Negative); Nitrite,Urine Negative (Negative); PH, Urine 6.5 (5.0-8.0); Protein,Urine Negative (Negative); Specific Gravity,Urine 1.023 (1.001-1.035); Urobilinogen,Urine <2.0 mg/dL (<2.0)
[2024-03-04] MEDS ORDERED: NALOXONE 0.4 MG/ML 1 ML VIAL IV PRN (22:10)
[2024-03-04] MEDS ORDERED: LORazepam 0.5 MG TAB PO PRN (22:36)
[2024-03-04] MEDS: SODIUM CHLORIDE 0.9% 1,000 ML IV SCH (22:49)
[2024-03-05] MEDS ORDERED: ARTIFICIAL TEARS-HYPROMELLOSE DROPS 15 ML BTL BOTH EYES PRN (09:33)
[2024-03-05] MEDS: methocarbamoL 500 MG TAB PO SCH (10:39)
[2024-03-05] MEDS: MORPHINE SULFATE 4 MG/ML SYRINGE IV PRN (10:40)
--- NOTE | 2024-03-05 11:16 | XR ---
Cervical spine HISTORY: Fall, possible cervical stenosis. Neck pain. COMPARISON: None TECHNIQUE: 6 views of the cervical spine were obtained. FINDINGS: The craniovertebral junction relation to prevertebral soft tissues and THE cervical vertebral segments are normal in height and alignment and there is no fracture or sublux ation. There is mild spondylosis at multiple levels indicating mild degenerative disease disease. Metallic o bjects obscure the disc spaces in the lower cervical spine. There is mild degeneration of the facet joints in the mid upper cervical spine. The neural foramina are not well displayed. IMPRESSION: Mild degenerative changes as described above. [facility], , 03/05/2024 11:14 AM
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
[2024-03-05] MEDS: prednisoLONE ACETATE 1% OPHTH DROPS 5 ML BTL BOTH EYES SCH (14:20)
[2024-03-05] MEDS: GABAPENTIN 100 MG CAP PO SCH (14:23)
[2024-03-05] MEDS: CARBIDOPA-LEVODOPA ER 50-200MG 1 EACH TABLET.ER PO SCH (14:24)
[2024-03-05] MEDS: KETOROLAC 0.5% OPHTH DROPS 5 ML BTL RIGHT EYE SCH (14:27)
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
[2024-03-05] MEDS: FAMOTIDINE 20 MG TAB PO SCH (20:42)
[2024-03-05] MEDS: OXYBUTYNIN 15 MG TAB.ER.24 PO SCH (20:42)
[2024-03-05] MEDS: methylPREDNISolone SOD SUCCI 125 MG/2 ML VIAL IV SCH (20:43)
[2024-03-05] MEDS: TIMOLOL 0.5% OPHTH DROPS 5 ML BTL RIGHT EYE SCH (23:11)
[2024-03-06] MEDS: CHOLECALCIFEROL 125 MCG (5000 IU) TABLET PO SCH (08:02)
[2024-03-06] MEDS: MAGNESIUM OXIDE 400 MG TAB PO SCH (08:02)
[2024-03-06] MEDS: ASCORBIC ACID 500 MG TAB PO SCH (08:03)
[2024-03-06 10:34] LABS: Basophils % (A) 0 %; Eosinophils # (A) 0.1 k/uL (0-0.7); Eosinophils % (A) 1 %; HCT 41.1 % (39.0-53.0); HGB 13.7 gm/dL (13.0-17.5); Lymphocytes # (A) 0.5 k/uL (1.0-4.8); Lymphocytes % (A) 5 %; MCH 30.6 pg (25.0-35.0); MCHC 33.3 g/dL (31.0-37.0); MCV 91.9 fL (80.0-100.0); Mean Platelet Volume 7.9; Monocytes # (A) 0.2 k/uL (0-1.0); Monocytes % (A) 2 %; Neutrophils # (A) 9.2 k/uL (1.3-7.7); Neutrophils % (A) 93 %; Platelet Count 209 k/uL (150-450); RBC 4.47 m/uL (4.30-5.90); RDW 12.5 % (11.5-15.5); WBC 9.9 k/uL (3.8-10.6)
--- NOTE | 2024-03-06 10:49 | P.PN ---
Progress Note - Text Progress Note Date: 03/06/24 The patient is seen and examined at bedside. He says he is feeling better today. He is feeling a bit more steady but has not gotten up with physical therapy yet. He is tolerating his diet adequately. He denies any chest pain shortness of breath. Denies any new complaints or new weakness. Afebrile stable vital signs chest has good excursion with deep inspiration expiration Abdomen soft nontender he has significant Tremors bilateral upper extremities worse on the right and left which is chronic for him No new weakness neurologically. His prior MRI from December of his cervical and thoracic spine is again reviewed Assessment and plan History of anterior cervical decompression and fusion C4-5 C5-6 done at [facility] Cervical stenosis at C5-6 with cord distortion Generalized weakness, chronic Significant Parkinson's, chronic No apparent new neurologic deficit Difficulty ambulating with recurrent falls The patient seems to be making some benefit with the IV steroid medication. I think that we can discontinue the steroid IV in the morning and convert him over over to oral steroid medications on a tapering dose. The patient has significant changes at his cervical spine without acute neurologic deficit. There is cervical stenosis at C5-6 with disc herniation and cord distortion. There is no evidence of myelomalacia at the cervical cord. He is currently being worked up as an outpatient at [facility] for his cervical spine with his original spine surgeon. He is satisfied with this. I think that it is okay for him to continue his follow-up and treatment with his original spine surgeon at [facility]. He plans to do so. He is settling down somewhat with the steroid medications and can be discharged with oral steroid on a tapering dose as he leads up to his further follow-up. As he is making improvement, I do not have acute plans for surgical intervention during this admission. He will continue to work with physical therapy for transfers balance and gait and coordination exercises as well. He should continue his medical management and treatment and we will plan to follow-up for his cervical spine with his original spine surgeon at [facility] after discharge as scheduled
[2024-03-06 10:52] LABS: ALT 21 U/L (4-49); AST 21 U/L (17-59); African American GFR (CKD) >90 (>60 ml/min/1.73 sqM); Albumin 3.7 g/dL (3.5-5.0); Albumin/Globulin Ratio 1.4; Alkaline Phosphatase 64 U/L (38-126); Anion Gap 9 mmol/L; Blood Urea Nitrogen 27 mg/dL (9-20); Carbon Dioxide 24 mmol/L (22-30); Chloride 102 mmol/L (98-107); Globulin 2.7 g/dL; Glucose 159 mg/dL (74-99); Non-African American GFR(CKD) >90 (>60 ml/min/1.73 sqM); Sodium 135 mmol/L (137-145); Total Bilirubin 0.4 mg/dL (0.2-1.3); Total Protein 6.4 g/dL (6.3-8.2)
--- NOTE | 2024-03-06 12:03 | P.PN ---
Subjective Progress Note Date: 03/06/24 patient is 68-year-old gentleman past medical history significant for Parkinson disease, hypertension who presented to the ER because of recurrent falls. Patient is being worked up outpatient for his prostate cancer. Patient had recent MRI cervical spine done showing large left paracentral disc herniation with moderate to marked thecal sac compression, cord contact without cord compression, central disc bulging at C4-C5, C3-C4, C2-C3. MRI thoracic spine done showed suggestion of minimal disc bulging upper thoracic spine without cord contact or stenosis. states that the patient is very unsteady at home and has been falling. There is no complaint of any head trauma. Patient has not lost any consciousness at home. There is no complaint of fever or chills. Denies any nausea, vomiting abdominal pain. Initial lab work done in the ER showed WBC 7.1, hemoglobin 13.3, platelet count 205, sodium 135, potassium 4.7, BUN 35, creatinine 0.92, glucose 89, calcium 8.9, phosphorus 3.8, magnesium 1.9 UA negative for any infection EKG done in the ER showed heart rate of 63 , no ST segment elevation or depression seen, no T-wave inversions seen. Chest x-ray done in the ER showed no acute cardiopulmonary process CT head done showed no acute intracranial process Patient admitted to internal medicine service 03/06. Patient seen and examined. States he feels much better compared to yesterday REVIEW OF SYSTEMS: CONSTITUTIONAL: No fever, no malaise,. CARDIOVASCULAR: No chest pain, no palpitations, no syncope. PULMONARY: No shortness of breath, no cough, GASTROINTESTINAL: No diarrhea, no nausea, no vomiting, no abdominal pain. NEUROLOGICAL: No headaches, no weakness, PHYSICAL EXAMINATION: GENERAL: The patient is alert and oriented x3, chronically ill looking HEENT: Pupils are round and equally reacting to light. EOMI. No scleral icterus. No conjunctival pallor. Normocephalic, atraumatic. No pharyngeal erythema. No thyromegaly. CARDIOVASCULAR: S1 and S2 present. No murmurs, rubs, or gallops. PULMONARY: Chest is clear to auscultation, no wheezing or crackles. ABDOMEN: Soft, nontender, nondistended, normoactive bowel sounds. No palpable organomegaly. MUSCULOSKELETAL: No joint swelling or deformity. EXTREMITIES: No cyanosis, clubbing, or pedal edema. NEUROLOGICAL: Gross neurological examination did not reveal any focal deficits. SKIN: No rashes. Assessment and plan Recurrent falls Debility History of anterior cervical decompression with discectomy and fusion C4-5 C5-6 Cervical stenosis C5-6 with left cervical disc herniation Parkinson's disease History of prostate cancer Hypertension Hyperlipidemia Osteoarthritis History of bowel resection due to diverticulitis Monitor vital signs Monitor CBC Monitor CMP Continue telemetry monitoring Encourage use of incentive spirometer Fall precautions Continue IV steroids Continue carbidopalevodopa Continue IV fluids Continue pain management PT OT evaluation Orthopedic spine pain of the patient, recommended IV steroids with monitoring of symptoms, if there is no improvement then patient should follow-up with his orthopedic spine doctor for possible surgery intervention Labs and medication were reviewed.. Continue same treatment. Continue with symptomatic treatment. Resume home medication. Monitor labs and vitals. DVT and GI prophylaxis. Further recommendations as per clinical course of the patient Dictation was produced using [employer] dictation software. please excuse any grammatical, word or spelling errors. Objective - Vital Signs Vital signs: Vital Signs Temp 98.4 F 03/05/24 18:11 Pulse 76 03/06/24 05:26 Resp 16 03/06/24 05:26 BP 92/56 03/06/24 05:26 Pulse Ox 97 03/06/24 05:26 FiO2 - Labs CBC & Chem 7: 03/06/24 10:10 03/06/24 10:10
[2024-03-06 12:19] LABS: Glucose,Whole Blood 146 mg/dL (70-110)
[2024-03-07 10:11] LABS: Basophils # (A) 0.02 X 10*3/uL (0.00-0.10); Basophils % (A) 0.1 %; Eosinophils # (A) 0.01 X 10*3/uL (0.04-0.35); Eosinophils % (A) 0.1 %; HCT 42.3 % (39.6-50.0); HGB 14.4 g/dL (13.0-17.0); Lymphocytes # (A) 0.63 X 10*3/uL (0.90-5.00); Lymphocytes % (A) 3.8 %; MCV 91.2 FL (80.0-97.0); Mean Platelet Volume 12.1 FL (9.5-12.2); Monocytes % (A) 3.1 %; NRBC Per 100 WBC 0 X 10*3/uL (0.00-0.01); Neutrophils # (A) 15.12 X 10*3/uL (1.80-7.70); Neutrophils % (A) 92.4 %; Platelet Count 231 X 10*3/uL (140-440); RBC 4.64 X 10*6/uL (4.40-5.60); RDW 12.3 % (11.5-14.5); WBC 16.37 X 10*3/uL (4.50-10.00)
[2024-03-07 10:24] LABS: ALT 18 U/L (10-49); AST 22 U/L (14-35); Albumin 3.9 g/dL (3.8-4.9); Alkaline Phosphatase 90 U/L (41-126); BUN/Creat Ratio 34.14 Ratio (12.00-20.00); Blood Urea Nitrogen 23.9 mg/dL (9.0-27.0); Calcium 8.9 mg/dL (8.7-10.3); Carbon Dioxide 25.9 mmol/L (21.6-31.8); Chloride 102 mmol/L (96-109); Globulin 2.6 g/dL (1.6-3.3); Glucose 131 mg/dL (70-110); Potassium 4.7 mmol/L (3.5-5.5); Sodium 139 mmol/L (135-145); Total Bilirubin 0.3 mg/dL (0.3-1.2); Total Protein 6.5 g/dL (6.2-8.2)
[2024-03-07] MEDS: ERYTHROMYCIN 5 MG/GM OPHTH OINT 1 GM TUBE BOTH EYES SCH (21:05)
[2024-03-07] MEDS: DILTIAZEM CD 120 MG CAP.ER.24H PO SCH (21:05)
[2024-03-07] MEDS: APIXABAN 5 MG TAB PO SCH (21:05)
--- NOTE | 2024-03-08 00:48 | PN ---
PROGRESS NOTE DATE OF SERVICE: 03/07/2024 SUBJECTIVE: This is a 68-year-old gentleman who was admitted with recurrent falls and acute parkinsonism, is being closely monitored. No chest pain. No palpitation. OBJECTIVE: VITAL SIGNS: Pulse is 61, blood pressure 130/72, respirations 16. CHEST: Clear to auscultation. CARDIOVASCULAR: S1, S2. ABDOMEN: Soft. NERVOUS SYSTEM: Unstable gait and increased tone and diffuse tremors. LABORATORY DATA: Noted. ASSESSMENT: 1. Recurrent falls secondary to degenerative joint disease and as well as acute parkinsonism. 2. Debility. 3. History of anterior cervical decompression and diskectomy fusion, C4-C5, C5-C6. 4. Prostate cancer. 5. Hypertension. 6. Hyperlipidemia. RECOMMENDATIONS: Recommend to continue current management and continue symptomatic treatment. PT/OT evaluation, possible ECF rehab. I would also recommend a full admit because of above- mentioned multiple medical issues lasting more than 24 hours. MMODL / IJN: [id number] /
[2024-03-08] MEDS: CYANOCOBALAMIN 500 MCG TAB PO SCH (08:23)
[2024-03-08 08:24] LABS: HCT 36.7 % (39.6-50.0); HGB 12.4 g/dL (13.0-17.0); MCHC 33.8 g/dL (32.0-37.0); MCV 91.8 FL (80.0-97.0); Mean Platelet Volume 12.3 FL (9.5-12.2); NRBC Per 100 WBC 0 X 10*3/uL (0.00-0.01); Platelet Count 187 X 10*3/uL (140-440); RDW 12.2 % (11.5-14.5); WBC 12.58 X 10*3/uL (4.50-10.00)
[2024-03-08] MEDS: LOSARTAN 50 MG TAB PO SCH (08:24)
[2024-03-08 08:25] LABS: Basophils # (A) 0.02 X 10*3/uL (0.00-0.10); Basophils % (A) 0.2 %; Eosinophils # (A) 0 X 10*3/uL (0.04-0.35); Eosinophils % (A) 0 %; Lymphocytes # (A) 0.49 X 10*3/uL (0.90-5.00); Lymphocytes % (A) 3.9 %; Monocytes # (A) 0.39 X 10*3/uL (0.20-1.00); Monocytes % (A) 3.1 %; Neutrophils # (A) 11.62 X 10*3/uL (1.80-7.70); Neutrophils % (A) 92.3 %
[2024-03-08] MEDS: predniSONE 20 MG TAB PO SCH (08:54)
[2024-03-08 09:25] LABS: BUN/Creat Ratio 34.14 Ratio (12.00-20.00); Blood Urea Nitrogen 23.9 mg/dL (9.0-27.0); Carbon Dioxide 21.6 mmol/L (21.6-31.8); Chloride 104 mmol/L (96-109); Glucose 137 mg/dL (70-110); Potassium 4.5 mmol/L (3.5-5.5); Sodium 136 mmol/L (135-145)
[2024-03-08 14:21] VITALS: BP 153/79; PULSE 61; RESP 17; TEMP 98.3
--- NOTE | 2024-03-12 11:46 | P.DS ---
Providers Date of admission: 03/07/24 10:24 Expected date of discharge: 03/08/24 Attending physician: Hank Berman Consults: 03/05/24 09:27 Consult Physician Routine Consulting Provider: Francis Santiago Consult Reason/Comments: Recurrent falls, abnormal MRI cervical spine Do you want consulting provider notified?: Yes Primary care physician: Gayle Hernández Hospital Course: Final diagnosis Recurrent falls Debility History of anterior cervical decompression with discectomy and fusion C4-5 C5-6 Cervical stenosis C5-6 with left cervical disc herniation Parkinson's disease History of prostate cancer Hypertension Hyperlipidemia Osteoarthritis History of bowel resection due to diverticulitis GI prophylaxis DVT prophylaxis Full code Discharge disposition Patient is being discharged in a stable condition with guarded prognosis to home. Patient will follow-up with Dr. Hernández in the outpatient setting upon discharge. Patient is to continue with prednisone taper and outpatient follow- up with [facility] as scheduled. Total time taken is greater than 35 minutes. Hospital course This is a 68-year-old male who was recently admitted with generalized weakness with debility and recurrent falls. Patient evaluated by orthopedics along with physical therapy was able to walk 100 feet when discussing the possible need for PT/OT therapy outpatient with home care. No plans for immediate surgical intervention right now we will continue the steroid taper and close outpatient follow-up. Patient has been cleared by consultations for discharge home today. Please refer to other consultation notes for further HPI. Currently no reports of chest pain, shortness of breath, or palpitations. Patient is afebrile. No reports of nausea or vomiting and patient is tolerating diet. Patient will be discharged home today. Guarded prognosis and high risk for readmissions given patient's comorbidities. Physical exam: Gen: This is a 68-year-old male who is awake, alert and oriented x 3, well- developed, elderly appearing HEENT: Head is atraumatic, normocephalic. Pupils equal, round. Sclerae is anicteric. NECK: Supple. No JVD. No lymphadenopathy. No thyromegaly. LUNGS: Diminished breath sounds bilaterally otherwise clear to auscultation. No wheezes or rhonchi. No intercostal retractions. HEART: S1, S2 are muffled ABDOMEN: Soft. Bowel sounds are present. No masses. No tenderness. EXTREMITIES: No pedal edema. No calf tenderness. Tremors noted of upper extremities NEUROLOGICAL: Patient is awake, alert and oriented x3. Cranial nerves 2 through 12 are grossly intact. Diffusely weak Please refer to medication reconciliation sheet for a list of medications. The impression and plan of care has been dictated by Sasha Loya, Nurse Practitioner as directed. Dr. Cullne MD I have performed a history and examination and MDM of this patient, discussed the same with the dictator, and agree with the dictator's assessment and plan as written ,documented as a scribe. Based on total visit time, I have performed more than 50% of the visit. Patient Condition at Discharge: Fair Plan - Discharge Summary Discharge Rx Participant: No New Discharge Prescriptions: New predniSONE 20 mg PO DIRECTED #24 tab Famotidine [Pepcid] 20 mg PO BID 15 Days #30 tab Continue Carbidopa-Levodopa ER 50-200Mg [Sinemet CR 50-200 mg] 1 tab PO TID@0700,1400,2300 Timolol 0.5% Ophth Soln [Timoptic 0.5% Ophth Soln] 1 drop RIGHT EYE BID Magnesium Oxide [Magnesium] 1,000 mg PO DAILY Ascorbic Acid [Vitamin C] 1,000 mg PO DAILY Vitamin D3 325mcg 1 tab PO DAILY Artificial Tears-Hypromellose [Artificial Tear Drops] 1 drop BOTH EYES QID PRN PRN Reason: Dry Eye(S) Oxybutynin Chloride [oxyBUTYnin chloride ER] 15 mg PO HS Ketorolac 0.5% Ophth Soln [Acular 0.5%] 1 drop RIGHT EYE QID prednisoLONE ACETATE 1% OPHTH [Pred Forte 1%] 1 drop BOTH EYES QID Cyanocobalamin (Vitamin B-12) [Vitamin B-12] 1,000 mcg PO DAILY dilTIAZem HCL [dilTIAZem HCL 24Hr ER (CD)] 120 mg PO HS Apixaban [Eliquis] 5 mg PO BID Erythromycin Ophth Oint (1 gm) [Ilotycin Ophth Oint (1 gm)] 1 applic BOTH EYES HS Gabapentin [Neurontin] 100 mg PO TID@0700,1400,2300 Losartan Potassium 100 mg PO DAILY methocarbamoL [Robaxin] 500 mg PO Q8H Discharge Medication List Carbidopa-Levodopa ER 50-200Mg [Sinemet CR 50-200 mg] 1 tab PO TID@0700,1400,2300 10/18/19 [History] Ascorbic Acid [Vitamin C] 1,000 mg PO DAILY 04/30/23 [History] Cyanocobalamin (Vitamin B-12) [Vitamin B-12] 1,000 mcg PO DAILY 04/30/23 [History] Magnesium Oxide [Magnesium] 1,000 mg PO DAILY 04/30/23 [History] Timolol 0.5% Ophth Soln [Timoptic 0.5% Ophth Soln] 1 drop RIGHT EYE BID 04/30/23 [History] prednisoLONE ACETATE 1% OPHTH [Pred Forte 1%] 1 drop BOTH EYES QID 04/30/23 [History] dilTIAZem HCL [dilTIAZem HCL 24Hr ER (CD)] 120 mg PO HS 09/09/23 [History] Apixaban [Eliquis] 5 mg PO BID 01/11/24 [History] Artificial Tears-Hypromellose [Artificial Tear Drops] 1 drop BOTH EYES QID PRN 01/11/24 [History] Erythromycin Ophth Oint (1 gm) [Ilotycin Ophth Oint (1 gm)] 1 applic BOTH EYES HS 01/11/24 [History] Gabapentin [Neurontin] 100 mg PO TID@0700,1400,2300 01/11/24 [History] Losartan Potassium 100 mg PO DAILY 01/11/24 [History] Vitamin D3 325mcg 1 tab PO DAILY 01/11/24 [History] Ketorolac 0.5% Ophth Soln [Acular 0.5%] 1 drop RIGHT EYE QID 03/05/24 [History] Oxybutynin Chloride [oxyBUTYnin chloride ER] 15 mg PO HS 03/05/24 [History] methocarbamoL [Robaxin] 500 mg PO Q8H 03/05/24 [History] Famotidine [Pepcid] 20 mg PO BID 15 Days #30 tab 03/08/24 [Rx] predniSONE 20 mg PO DIRECTED #24 tab 03/08/24 [Rx] Follow up Appointment(s)/Referral(s): [facility], [NON-STAFF] - As Needed ([facility] will call you to schedule your in home physical therapy and occupational therapy visits. ) Gayle Hernández MD [Primary Care Provider] - 03/11/24 1:00 pm (with Mo Bring discharge papaerwork and and all perscriptions) Patient Instructions/Handouts: Weakness (DC) Activity/Diet/Wound Care/Special Instructions: Patient can follow-up with his own spine surgeon who he is currently having workup with at [facility]. Discharge Disposition: HOME WITH HOME HEALTH SERVICES
== END 2024-03-08 15:21 | disposition home health service (06) | DRG 552 ==
LOC: EC 19:00 → 4SSUR 22:11 → OBSVTOIN 03-07 10:24
PROVIDERS: ADMIT Hospitalist; ATTEND Hospitalist
DX: M50.221 Other cervical disc displacement at C4-C5 level (principal); E78.5 Hyperlipidemia, unspecified; G20.A1 Parkinson's disease without dyskinesia, without mention of fluctuations; I10 Essential (primary) hypertension; J45.909 Unspecified asthma, uncomplicated; M19.90 Unspecified osteoarthritis, unspecified site; M48.02 Spinal stenosis, cervical region; R29.6 Repeated falls; Z79.01 Long term (current) use of anticoagulants; Z79.899 Other long term (current) drug therapy; Z85.46 Personal history of malignant neoplasm of prostate; W19.XXXA Unspecified fall, initial encounter; Z90.49 Acquired absence of other specified parts of digestive tract; Z91.012 Allergy to eggs; Z88.7 Allergy status to serum and vaccine; Z91.81 History of falling; Z98.1 Arthrodesis status; Z98.42 Cataract extraction status, left eye; Z98.41 Cataract extraction status, right eye; Z87.19 Personal history of other diseases of the digestive system; Z94.7 Corneal transplant status
CPT/HCPCS: 36415; 70450; 71045; 72050; 80048; 80053; 81003; 83605; 83735; 83880; 84100; 84443; 84484; 85025; 85610; 85730; 93005; 96361; 96374; 99285

== ENCOUNTER 2024-03-29 02:10 | Inpatient (IN) | payer MEDICARE ==
[2024-03-29 02:40] LABS: Basophils % (A) 1 %; Eosinophils # (A) 0.4 k/uL (0-0.7); Eosinophils % (A) 6 %; HCT 41.7 % (39.0-53.0); HGB 14.1 gm/dL (13.0-17.5); Lymphocytes # (A) 0.7 k/uL (1.0-4.8); Lymphocytes % (A) 11 %; MCH 30.5 pg (25.0-35.0); MCHC 33.8 g/dL (31.0-37.0); MCV 90.2 fL (80.0-100.0); Mean Platelet Volume 8.3; Monocytes # (A) 0.5 k/uL (0-1.0); Monocytes % (A) 8 %; Neutrophils # (A) 4.4 k/uL (1.3-7.7); Neutrophils % (A) 71 %; Platelet Count 202 k/uL (150-450); RBC 4.63 m/uL (4.30-5.90); RDW 13.6 % (11.5-15.5); WBC 6.2 k/uL (3.8-10.6)
[2024-03-29 03:05] LABS: Partial Thromboplastin Time 27.2 sec (22.0-30.0); Prothrombin Time 11.1 sec (10.0-12.5)
[2024-03-29] MEDS: SODIUM CHLORIDE 0.9% 1,000 ML IV ONE (03:40)
[2024-03-29 03:43] LABS: ALT 19 U/L (4-49); AST 41 U/L (17-59); African American GFR (CKD) >90 (>60 ml/min/1.73 sqM); Albumin 3.9 g/dL (3.5-5.0); Alkaline Phosphatase 117 U/L (38-126); Anion Gap 11 mmol/L; Blood Urea Nitrogen 19 mg/dL (9-20); Calcium 9.8 mg/dL (8.4-10.2); Carbon Dioxide 17 mmol/L (22-30); Chloride 106 mmol/L (98-107); Glucose 135 mg/dL (74-99); Magnesium 1.9 mg/dL (1.6-2.3); Non-African American GFR(CKD) 89 (>60 ml/min/1.73 sqM); Potassium 4.9 mmol/L (3.5-5.1); Sodium 134 mmol/L (137-145); Total Bilirubin 0.8 mg/dL (0.2-1.3); Total Protein 6.7 g/dL (6.3-8.2)
[2024-03-29 03:52] LABS: NT-Pro-B-Type Natriuretic Pept 118 pg/mL
[2024-03-29] MEDS: DILTIAZEM DRIP BOLUS FROM BAG 1 MG SOLN IV ONE (04:19)
[2024-03-29] MEDS: DILTIAZEM 125 MG in SODIUM CHLORIDE 0.9% 100 ML IV SCH (04:19)
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
[2024-03-29] MEDS ORDERED: NALOXONE 0.4 MG/ML 1 ML VIAL IV PRN (04:55)
--- NOTE | 2024-03-29 04:56 | XR ---
EXAM: XR Chest, 2 Views CLINICAL HISTORY: Chest Pain, his smart watch sent him a notification indicating sinus tach TECHNIQUE: Frontal and lateral views of the chest. COMPARISON: 01/11/2024 FINDINGS: Lungs: Unremarkable. No consolidation. Pleural space: Unremarkable. Mediastinum: Unremarkable. Normal mediastinal contour. Bones/joints: No acute findings. IMPRESSION: No acute findings.
[2024-03-29] MEDS ORDERED: ARTIFICIAL TEARS-HYPROMELLOSE DROPS 15 ML BTL BOTH EYES PRN (09:46)
[2024-03-29] MEDS: METOPROLOL SUCCINATE (ER) 25 MG TAB.ER.24H PO SCH (10:04)
[2024-03-29] MEDS: APIXABAN 5 MG TAB PO SCH (10:04)
[2024-03-29] MEDS: LOSARTAN 50 MG TAB PO SCH (10:04)
[2024-03-29] MEDS: ASCORBIC ACID 500 MG TAB PO SCH (11:03)
[2024-03-29] MEDS: FAMOTIDINE 20 MG TAB PO SCH (11:03)
[2024-03-29] MEDS: CARBIDOPA-LEVODOPA ER 50-200MG 1 EACH TABLET.ER PO STA (11:03)
[2024-03-29] MEDS: KETOROLAC 0.5% OPHTH DROPS 5 ML BTL RIGHT EYE SCH (11:04)
[2024-03-29] MEDS: methocarbamoL 500 MG TAB PO SCH (11:04)
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
[2024-03-29] MEDS: prednisoLONE ACETATE 1% OPHTH DROPS 5 ML BTL BOTH EYES SCH (12:09)
--- NOTE | 2024-03-29 15:19 | CA ---
Transthoracic Echo Report Name: Perfecto Crowe Age: 68 Gender: M : 1955 Exam Date: 03/29/2024 09:42 Exam Location: [facility] Ht (in): 70 Wt (lb): 190 Ordering Physician: Chelly Jules Attending/Referring Phys: [id number], Jorge A Poultry Processing Supervisor Apoorva Marrero, JOSLYN Procedure CPT: Indications: LVF Cardiac Hx: Technical Quality: Good Contrast 1: Total Dose (mL): Contrast 2: Total Dose (mL): MEASUREMENTS (Male / Female) Normal Values 2D ECHO LV Diastolic Diameter PLAX 4.3 cm 4.2 - 5.9 / 3.9 - 5.3 cm LV Systolic Diameter PLAX 2.7 cm IVS Diastolic Thickness 1.3 cm 0.6 - 1.0 / 0.6 - 0.9 cm LVPW Diastolic Thickness 1.3 cm 0.6 - 1.0 / 0.6 - 0.9 cm LV Relative Wall Thickness 0.6 RV Internal Dim ED PLAX 3.5 cm LA Systolic Diameter LX 3.4 cm 3.0 - 4.0 / 2.7 - 3.8 cm LV Diastolic Volume MOD BP 81.2 cm??? 67 - 155 / 56 - 104 cm??? LV Systolic Volume MOD BP 28.3 cm??? - 58 / 19 - 49 cm??? LV Ejection Fraction MOD BP 65.2 % >= 55 % LV Cardiac Index MOD BP 1959.4 cm???/min???m??? LV Diastolic Volume MOD 4C 100.0 cm??? LV Systolic Volume MOD 4C 51.4 cm??? LV Ejection Fraction MOD 4C 48.6 % LV Cardiac Index MOD 4C 1799.3 cm???/min???m??? LV Diastolic Length 4C 8.3 cm LV Systolic Length 4C 7.3 cm LV Diastolic Volume MOD 2C 81.9 cm??? LV Systolic Volume MOD 2C 41.1 cm??? LV Ejection Fraction MOD 2C 49.9 % LV Cardiac Index MOD 2C 1512.9 cm???/min???m??? LV Diastolic Length 2C 8.7 cm LV Systolic Length 2C 7.4 cm LA Volume 38.7 cm??? 18 - 58 / 22 - 52 cm??? LA Volume Index 18.6 cm???/m??? 16 - 28 cm???/m??? M-MODE Aortic Root Diameter MM 3.8 cm AV Cusp Separation MM 2.1 cm DOPPLER AV Peak Velocity 127.5 cm/s AV Peak Gradient 6.5 mmHg MV Area PHT 3.3 cm??? Mitral E Point Velocity 90.7 cm/s Mitral A Point Velocity 72.9 cm/s Mitral E to A Ratio 1.2 MV Deceleration Time 229.6 ms TR Peak Velocity 227.3 cm/s TR Peak Gradient 20.7 mmHg Right Ventricular Systolic Press 25.0 mmHg FINDINGS Left Ventricle Left ventricular ejection fraction is estimated at 55-60 %. Left ventricular cavity size normal. Mild concentric left ventricular hypertrophy. Right Ventricle Mild right ventricular dilatation. Normal right ventricular size and function. Right Atrium Normal right atrial size. No right atrial thrombus or mass seen. Left Atrium Normal left atrial size. No left atrial thrombus or mass present. Mitral Valve Structurally normal mitral valve. Mitral annular calcification. No mitral stenosis, regurgitation or prolapse. Aortic Valve Trileaflet aortic valve. No aortic valve stenosis or regurgitation. Tricuspid Valve Structurally normal tricuspid valve. Mild tricuspid regurgitation. Pulmonic Valve Structurally normal pulmonic valve. No pulmonic regurgitation. Pericardium No pericardial or pleural effusion. Aorta Mild aortic dilatation at the level of the sinuses of valsalva 38 mm CONCLUSIONS Left ventricular ejection fraction 55-60% No mitral regurgitation Mild tricuspid regurgitation No pericardial effusion Previewed by: Dr. Chong Hughes DO (Electronically Signed) Final Date: 29 March 2024 15:18
[2024-03-29] MEDS: GABAPENTIN 100 MG CAP PO SCH (15:34)
[2024-03-29] MEDS: CARBIDOPA-LEVODOPA ER 50-200MG 1 EACH TABLET.ER PO SCH (15:35)
[2024-03-29] MEDS: traMADol 50 MG TAB PO PRN (17:14)
[2024-03-29] MEDS: DILTIAZEM CD 120 MG CAP.ER.24H PO SCH (20:19)
[2024-03-29] MEDS: OXYBUTYNIN 15 MG TAB.ER.24 PO SCH (20:19)
[2024-03-29] MEDS: TIMOLOL 0.5% OPHTH DROPS 5 ML BTL RIGHT EYE SCH (23:20)
[2024-03-29] MEDS: ERYTHROMYCIN 5 MG/GM OPHTH OINT 1 GM TUBE BOTH EYES SCH (23:20)
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
[2024-03-30] MEDS: PANTOPRAZOLE 40 MG TABLET PO SCH (06:23)
[2024-03-30 07:26] LABS: Basophils % (A) 1 %; Eosinophils # (A) 0.3 k/uL (0-0.7); Eosinophils % (A) 8 %; HCT 34.6 % (39.0-53.0); HGB 11.7 gm/dL (13.0-17.5); Lymphocytes # (A) 0.5 k/uL (1.0-4.8); Lymphocytes % (A) 12 %; MCH 30.5 pg (25.0-35.0); MCHC 33.7 g/dL (31.0-37.0); MCV 90.5 fL (80.0-100.0); Mean Platelet Volume 8.6; Monocytes # (A) 0.4 k/uL (0-1.0); Monocytes % (A) 9 %; Neutrophils # (A) 2.8 k/uL (1.3-7.7); Neutrophils % (A) 67 %; Platelet Count 146 k/uL (150-450); RBC 3.82 m/uL (4.30-5.90); RDW 13.6 % (11.5-15.5); WBC 4.2 k/uL (3.8-10.6)
[2024-03-30 07:47] LABS: African American GFR (CKD) >90 (>60 ml/min/1.73 sqM); Anion Gap 0 mmol/L; Blood Urea Nitrogen 19 mg/dL (9-20); Calcium 8.6 mg/dL (8.4-10.2); Carbon Dioxide 33 mmol/L (22-30); Chloride 101 mmol/L (98-107); Glucose 99 mg/dL (74-99); Non-African American GFR(CKD) 88 (>60 ml/min/1.73 sqM); Potassium 4.5 mmol/L (3.5-5.1); Sodium 134 mmol/L (137-145)
[2024-03-30] MEDS: CYANOCOBALAMIN 500 MCG TAB PO SCH (09:31)
[2024-03-30] MEDS: CHOLECALCIFEROL 125 MCG (5000 IU) TABLET PO SCH (09:32)
[2024-03-30] MEDS: MAGNESIUM OXIDE 400 MG TAB PO SCH (09:32)
[2024-03-30] MEDS ORDERED: ALPRAZolam 0.5 MG TAB PO PRN (12:05)
[2024-03-30] MEDS ORDERED: NITROGLYCERIN SL TABS 0.4 MG TAB SUBLINGUAL PRN (12:05)
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
--- NOTE | 2024-03-30 20:28 | US ---
EXAMINATION TYPE: US venous doppler duplex LE RT DATE OF EXAM: 03/30/2024 7:41 PM COMPARISON: NONE CLINICAL INDICATION: Male, 68 years old with history of Right lower extremity swelling greater than l eft; Patient states leg swelling at ankle. Patient on Eliquis. No hx DVT, TECHNIQUE: The lower extremity deep venous system is examined utilizing real time linear array sonog shabnam with graded compression, color doppler sonography, and spectral doppler. SIDE PERFORMED: Right FINDINGS: VESSELS IMAGED: Common Femoral Vein Deep Femoral Vein Greater Saphenous Vein * Femoral Vein Popliteal Vein Small Saphenous Vein * Proximal Calf Veins (* superficial vessels) Right Leg: Negative for DVT, Color Doppler imaging shows patency of the vessels. Spectral waveforms are within normal limits. IMPRESSION: 1. No evidence of deep vein thrombosis of the right lower extremity. [facility], , 03/30/2024 8:26 PM
[2024-03-30] MEDS: SODIUM CHLORIDE 0.9% 1,000 ML in EMPTY BAG 1 BAG IV SCH ×2 (21:08→23:10)
[2024-03-31] MEDS: ASPIRIN 325 MG TAB PO ONE (06:25)
[2024-03-31] MEDS: ATORVASTATIN 80 MG TAB PO ONE (06:25)
[2024-03-31 07:13] LABS: Basophils % (A) 1 %; Eosinophils # (A) 0.4 k/uL (0-0.7); Eosinophils % (A) 8 %; HGB 11.7 gm/dL (13.0-17.5); Lymphocytes # (A) 0.4 k/uL (1.0-4.8); Lymphocytes % (A) 9 %; MCH 30.5 pg (25.0-35.0); MCHC 33.4 g/dL (31.0-37.0); MCV 91.2 fL (80.0-100.0); Mean Platelet Volume 8.1; Monocytes # (A) 0.4 k/uL (0-1.0); Monocytes % (A) 7 %; Neutrophils # (A) 3.6 k/uL (1.3-7.7); Neutrophils % (A) 73 %; Platelet Count 158 k/uL (150-450); RBC 3.83 m/uL (4.30-5.90); WBC 4.9 k/uL (3.8-10.6)
[2024-03-31 07:38] LABS: African American GFR (CKD) >90 (>60 ml/min/1.73 sqM); Anion Gap 3 mmol/L; Blood Urea Nitrogen 17 mg/dL (9-20); Calcium 8.5 mg/dL (8.4-10.2); Carbon Dioxide 27 mmol/L (22-30); Chloride 101 mmol/L (98-107); Glucose 110 mg/dL (74-99); Non-African American GFR(CKD) >90 (>60 ml/min/1.73 sqM); Potassium 4.5 mmol/L (3.5-5.1); Sodium 131 mmol/L (137-145)
[2024-03-31] MEDS: MIDAZOLAM 2 MG/2 ML VIAL IVP ONE ×2 (08:52→09:12)
[2024-03-31] MEDS: fentaNYL (PF) 50 MCG/ML 2 ML AMP IVP ONE ×2 (08:53→09:12)
[2024-03-31] MEDS: IV FLUID CONTINUATION 1,000 ML IV ONE (08:53)
[2024-03-31] MEDS: HEPARIN SODIUM,PORCINE 10,000 UNIT in SODIUM CHLORIDE 0.9% 1,000 ML IRRIGATION PRN (08:55)
[2024-03-31] MEDS: HEPARIN SODIUM,PORCINE (1 ML) 2,500 UNIT in SODIUM CHLORIDE 0.9% 250 ML IRRIGATION PRN (08:55)
[2024-03-31] MEDS: LIDOCAINE 1% INJ 10MG/ML (20 ML MDV) SQ ONE (09:11)
[2024-03-31] MEDS: VERAPAMIL SYRINGE (5 MG/10 ML) INTRAARTER ONE (09:13)
[2024-03-31] MEDS: HEPARIN SODIUM 1,000 UN/ML (10ML VL) IVP ONE (09:15)
[2024-03-31] MEDS: ADENOSINE 90 MG in SODIUM CHLORIDE 0.9% 60 ML IVP ONE (09:31)
[2024-03-31] MEDS: IOPAMIDOL-370 100ML BTL INJ ONE (09:36)
--- NOTE | 2024-03-31 14:29 | P.CARDCATH ---
Description of Procedure: PROCEDURES PERFORMED: Left heart catheterization, bilateral coronary angiography, ultrasound guided arterial access, FFR, IMR, CMR LAD INDICATION: NSTEMI CONSENT:I have discussed the risks, benefits and alternative therapies for the above-mentioned procedure and for both sedation/analgesia as well as necessary blood product administration, if indicated, as they pertain to this patient. The patient has indicated understanding and acceptance of the risks and procedures discussed. PROCEDURE: After the risks, benefits and alternatives of the above mentioned procedure explained in detail with the patient, informed consent was obtained. Patient was taken to the catheterization lab and prepped and draped in usual fashion. Ultrasound guidance was used to assess for arterial access. 1% lidocaine was used to anesthetize the right radial artery. A 6-Lebanese sheath was placed in the right radial artery using modified Seldinger technique and ultrasound guidance. Left coronary angiography was performed with a 5-Lebanese JL 3.5 catheter and right coronary angiography was performed with a 5-Lebanese FR5 catheter in various views. A 5-Lebanese FR5 catheter was inserted into the left ventricle and pressure measurements were obtained. There was some SHAD 2 flow noted throughout the LAD and circumflex and therefore decision made to perform functional assessment. Heparin was given. In the FL 3.5, is 0.014 pressure wire was advanced the left main and normalized. He was then advanced the mid LAD. Peak hyperemia was performed with adenosine infusion and FFR 0.90, IMR 9, CFR 2.3 all within normal range. The right radial sheath was removed and a TR band was placed with hemostasis achieved. The patient tolerated the procedure well. Patient was transported back to the post catheterization holding area in stable condition. Conscious Sedation: Patient was monitored under the direct supervision of myself for conscious sedation using Versed and fentanyl for a total duration of 25 minutes HEMODYNAMICS: aorta: 108/67 LV: 105/4, LVEDP 11 SELECTIVE CORONARY ARTERIOGRAPHY: LEFT MAIN: The left main is a large caliber vessel which bifurcates into the LAD and circumflex. There is no significant stenosis. LEFT ANTERIOR DESCENDING CORONARY ARTERY: LAD is a large caliber vessel which wraps around to the apex. There is mild mid LAD 10% stenosis and otherwise normal. LEFT CIRCUMFLEX CORONARY ARTERY: Left circumflex is a moderate caliber vessel with mild 10% stenosis. RIGHT CORONARY ARTERY: The right coronary artery is a large caliber vessel which gives off a PDA and PLV branch and is the dominant vessel. There is no significant stenosis. FINAL IMPRESSION: 1. Mild CAD as described above with 10% circumflex and LAD stenosis. 2. Normal left sided filling pressures 3. Normal FFR, IMR, CMR however some SHAD 2 flow noted of the distal LAD, circumflex which may be seen with microvascular dysfunction PLAN: 1. Aggressive risk factor modification per most recent ACC/AHA guidelines. 2. Follow-up in the office in 1-2 weeks.
--- NOTE | 2024-04-01 00:18 | P.PN ---
Subjective Progress Note Date: 03/30/24 Patient is a 68-year-old male with a past medical history of atrial fibrillation, recent GI bleed status post EGD and colonoscopy no bleeding source identified, C. 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 Patient denied any complaints of chest pain otherwise. No leg swelling. Last night he was trying to sleep and his Fitbit told him that his heart rate went up to 161. Also noticed to have increasing right lower extremity swelling. Patient was given IV fluid bolus and Cardizem bolus was given. He has converted to sinus rhythm. Patient was recently diagnosed with paroxysmal atrial fibrillation and SVT. On admission patient was hypotensive with blood pressure 78/57 heart rate 152 and pulse ox 97% on room air. Respirations 16. EKG showed sinus rhythm and second EKG showed SVT Chest x-ray showed no acute cardiopulmonary process. 2D echocardiogram on 05/14/2023 showed ejection fraction of 60 to 65%. Moderate TIFFANY and LV outlet obstruction consistent with HOCM. Mild TR, moderate pulmonary hypertension. AV klaudia blocking agents on hold during recent admission due to bradycardia. Laboratory data showed WBC 6.2 hemoglobin 14.1 and platelets 202 sodium 134 potassium 4.9 chloride 106 bicarb is 17 BUN 19 and creatinine 0.84 and blood sugar 135. Troponin 0.023, 0.060 and 0.080 and TSH 1.68. proBNP 118. 03/30/2024 Patient is sitting in a chair. Awake alert and oriented x 3. No complaints of chest pain or shortness of breath. Currently on room air. Cardiology is planning for catheterization tomorrow. 2D echocardiogram showed ejection fraction 55 to 60% and mild TR. No pericardial effusion. Patient states that his right lower extremities more swollen than the left. No pain or recent injury noted. Patient was bradycardia with heart rate 50s this morning. Current medications reviewed. Objective - Vital Signs Vital signs: Vital Signs Temp 98.1 F 03/30/24 16:00 Pulse 57 L 03/30/24 16:00 Resp 18 03/30/24 16:00 BP 112/71 03/30/24 16:00 Pulse Ox 94 L 03/30/24 16:00 FiO2 Intake & Output 03/30/24 03/30/24 03/31/24 06:59 18:59 06:59 Intake Total 118 Output Total 750 475 Balance -750 -357 Weight 102 kg Intake: Oral 118 Output: Urine 750 475 Other: # Voids 2 - Exam PHYSICAL EXAMINATION: Patient is lying in the bed comfortably, no acute distress, awake alert and oriented.. HEENT: Normocephalic. Neck is supple. Keratosis. Nostrils clear. Oral cavity is moist. Neck reveals no JVD, carotid bruits, or thyromegaly. CHEST EXAMINATION: Trachea is central. Symmetrical expansion. Lung sebastian clear to auscultation and percussion. CARDIAC: Normal S1, S2 with no gallops. No murmurs ABDOMEN: Soft. Bowel sounds normal. No organomegaly. No abdominal bruits. Extremities: Bilateral lower extremity edema right greater than left. No club natalia or cyanosis Neurologically awake, alert, oriented x3 with well-coordinated movements. No focal deficits noted Skin: No rash or skin lesions. Psychiatric: Coperative. Nonsuicidal Musculoskeletal: No joint swelling or deformity. Normal range of motion. - Labs CBC & Chem 7: 03/31/24 06:54 03/31/24 06:54 Labs: Abnormal Lab Results - Last 24 Hours (Table) 03/30/24 03/30/24 Range/Units 07:01 07:01 RBC 3.82 L (4.30-5.90) m/uL Hgb 11.7 L (13.0-17.5) gm/dL Hct 34.6 L (39.0-53.0) % Plt Count 146 L (150-450) k/uL Lymphocytes # 0.5 L (1.0-4.8) k/uL Sodium 134 L (137-145) mmol/L Carbon Dioxide 33 H (22-30) mmol/L Assessment and Plan Assessment: Supraventricular tachycardia Chest pain and elevated troponin level secondary to above. CAD cannot be excluded. Paroxysmal atrial fibrillation not on anticoagulation due to history of GI bleed Hypertension Hyperlipidemia History of GI bleed Parkinson's tremors in both hands mainly right arm. 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 difficile infection GI and DVT prophylaxis with PPI and already on full anticoagulation Plan: Patient will be continued on telemonitoring. Was given IV Cardizem bolus in the ER. Patient is converted to sinus rhythm now. Patient was started on metoprolol XL 20 mg daily and also anticoagulation with Eliquis. Cardiology is on board. Planning for catheterization tomorrow. Continue with home medication including carbidopalevodopa. Continue with GI prophylaxis PPI and monitor H&H. Follow-up closely. Time with Patient: Greater than 30
--- NOTE | 2024-04-01 00:20 | P.PN ---
Subjective Progress Note Date: 03/31/24 Patient is a 68-year-old male with a past medical history of atrial fibrillation, recent GI bleed status post EGD and colonoscopy no bleeding source identified, C. 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 Patient denied any complaints of chest pain otherwise. No leg swelling. Last night he was trying to sleep and his Fitbit told him that his heart rate went up to 161. Also noticed to have increasing right lower extremity swelling. Patient was given IV fluid bolus and Cardizem bolus was given. He has converted to sinus rhythm. Patient was recently diagnosed with paroxysmal atrial fibrillation and SVT. On admission patient was hypotensive with blood pressure 78/57 heart rate 152 and pulse ox 97% on room air. Respirations 16. EKG showed sinus rhythm and second EKG showed SVT Chest x-ray showed no acute cardiopulmonary process. 2D echocardiogram on 05/14/2023 showed ejection fraction of 60 to 65%. Moderate TIFFANY and LV outlet obstruction consistent with HOCM. Mild TR, moderate pulmonary hypertension. AV klaudia blocking agents on hold during recent admission due to bradycardia. Laboratory data showed WBC 6.2 hemoglobin 14.1 and platelets 202 sodium 134 potassium 4.9 chloride 106 bicarb is 17 BUN 19 and creatinine 0.84 and blood sugar 135. Troponin 0.023, 0.060 and 0.080 and TSH 1.68. proBNP 118. 03/30/2024 Patient is sitting in a chair. Awake alert and oriented x 3. No complaints of chest pain or shortness of breath. Currently on room air. Cardiology is planning for catheterization tomorrow. 2D echocardiogram showed ejection fraction 55 to 60% and mild TR. No pericardial effusion. Patient states that his right lower extremities more swollen than the left. No pain or recent injury noted. Patient was bradycardia with heart rate 50s this morning. 03/31/2024 Patient is currently sitting in the chair. Awake alert and oriented. Status post cardiac catheterization showed mild CAD with 10% circumflex and LAD maryann nosis. Normal left-sided filling pressures. Aggressive risk factor modification was recommended. Otherwise heart rate is in 50s. Patient is being continued on Toprol-XL 25 mg daily. Blood pressure is controlled. Laboratory data showed WBC 4.9 hemoglobin 11.7 and platelets 158 sodium 131 potassium 4.5 chloride 101 bicarbonate 27 BUN 17 and creatinine 0.7. Anticipate discharge in next 24 hours. Follow-up BMP. Right lower EXTR duplex and is negative for DVT Current medications reviewed. Objective - Vital Signs Vital signs: Vital Signs Temp 98.3 F 03/31/24 19:55 Pulse 59 L 03/31/24 19:55 Resp 18 03/31/24 19:55 BP 119/73 03/31/24 19:55 Pulse Ox 96 03/31/24 19:55 FiO2 Intake & Output 03/31/24 03/31/24 04/01/24 06:59 18:59 06:59 Intake Total 180 365.2 Output Total 900 950 500 Balance -720 -584.8 -500 Weight 102.5 kg Intake: IV 129.2 Oral 180 236 Output: Urine 900 950 500 Other: Voiding Method Urinal # Voids 1 2 - Exam PHYSICAL EXAMINATION: Patient is lying in the bed comfortably, no acute distress, awake alert and oriented.. HEENT: Normocephalic. Neck is supple. Keratosis. Nostrils clear. Oral cavity is moist. Neck reveals no JVD, carotid bruits, or thyromegaly. CHEST EXAMINATION: Trachea is central. Symmetrical expansion. Lung sebastian clear to auscultation and percussion. CARDIAC: Normal S1, S2 with no gallops. No murmurs ABDOMEN: Soft. Bowel sounds normal. No organomegaly. No abdominal bruits. Extremities: Bilateral lower extremity trace edema. No clubbing or cyanosis Neurologically awake, alert, oriented x3 with well-coordinated movements. No focal deficits noted Skin: No rash or skin lesions. Psychiatric: Coperative. Nonsuicidal Musculoskeletal: No joint swelling or deformity. Normal range of motion. - Labs CBC & Chem 7: 03/31/24 06:54 03/31/24 06:54 Labs: Abnormal Lab Results - Last 24 Hours (Table) 03/31/24 03/31/24 Range/Units 06:54 06:54 RBC 3.83 L (4.30-5.90) m/uL Hgb 11.7 L (13.0-17.5) gm/dL Hct 35.0 L (39.0-53.0) % Lymphocytes # 0.4 L (1.0-4.8) k/uL Sodium 131 L (137-145) mmol/L Glucose 110 H (74-99) mg/dL Assessment and Plan Assessment: Supraventricular tachycardia Chest pain and elevated troponin level secondary to above. Status post cardiac catheterization on 03/31/2024 with mild CAD. Paroxysmal atrial fibrillation not on anticoagulation due to history of GI bleed Hypertension Hyperlipidemia History of GI bleed Parkinson's tremors in both hands mainly right arm. 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 difficile infection GI and DVT prophylaxis with PPI and already on full anticoagulation Plan: Patient will be continued on telemonitoring. Was given IV Cardizem bolus in the ER. Patient is converted to sinus rhythm now. Patient was started on metoprolol XL 20 mg daily and also anticoagulation with Eliquis. Cardiology is on board. Status post cardiac catheterization report as above.. Continue with home medication including carbidopalevodopa. Continue with GI prophylaxis PPI and monitor H&H. Follow-up closely. Anticipate discharge in next 24 hours. Time with Patient: Greater than 30
[2024-04-01 08:46] LABS: African American GFR (CKD) >90 (>60 ml/min/1.73 sqM); Anion Gap 2 mmol/L; Blood Urea Nitrogen 12 mg/dL (9-20); Calcium 8.4 mg/dL (8.4-10.2); Carbon Dioxide 27 mmol/L (22-30); Chloride 102 mmol/L (98-107); Glucose 138 mg/dL (74-99); Non-African American GFR(CKD) 89 (>60 ml/min/1.73 sqM); Potassium 4.5 mmol/L (3.5-5.1); Sodium 131 mmol/L (137-145)
[2024-04-01] MEDS: METOPROLOL SUCCINATE (ER) 25 MG TAB.ER.24H PO SCH (09:11)
[2024-04-01] MEDS: FUROSEMIDE 20 MG TAB PO SCH (11:12)
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
[2024-04-01] MEDS: APIXABAN 5 MG TAB PO SCH (14:00)
--- NOTE | 2024-04-01 16:58 | P.PN ---
Subjective Progress Note Date: 04/01/24 68-year-old male with a past medical history of atrial fibrillation, recent GI bleed status post EGD and colonoscopy no bleeding source identified, C. 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 Patient denied any complaints of chest pain otherwise. No leg swelling. Last night he was trying to sleep and his Fitbit told him that his heart rate went up to 161. Also noticed to have increasing right lower extremity swelling. Patient was given IV fluid bolus and Cardizem bolus was given. He has converted to sinus rhythm. Patient was recently diagnosed with paroxysmal atrial fibrillation and SVT. On admission patient was hypotensive with blood pressure 78/57 heart rate 152 and pulse ox 97% on room air. Respirations 16. EKG showed sinus rhythm and second EKG showed SVT Chest x-ray showed no acute cardiopulmonary process. 2D echocardiogram on 05/14/2023 showed ejection fraction of 60 to 65%. Moderate TIFFANY and LV outlet obstruction consistent with HOCM. Mild TR, moderate pulmonary hypertension. AV klaudia blocking agents on hold during recent admission due to bradycardia. Laboratory data showed WBC 6.2 hemoglobin 14.1 and platelets 202 sodium 134 potassium 4.9 chloride 106 bicarb is 17 BUN 19 and creatinine 0.84 and blood sugar 135. Troponin 0.023, 0.060 and 0.080 and TSH 1.68. proBNP 118. Objective - Vital Signs Vital signs: Vital Signs Temp 98.0 F 04/01/24 11:06 Pulse 60 04/01/24 11:06 Resp 16 04/01/24 11:06 BP 105/63 04/01/24 11:06 Pulse Ox 98 04/01/24 11:06 FiO2 Intake & Output 03/31/24 04/01/24 04/01/24 18:59 06:59 18:59 Intake Total 365.2 485 Output Total 950 800 100 Balance -584.8 -800 385 Weight 89.4 kg Intake: IV 129.2 5 Invasive Line 2 5 Oral 236 480 Output: Urine 950 800 100 Other: Voiding Method Urinal Urinal # Voids 1 2 1 - Exam Patient is lying in the bed comfortably, no acute distress, awake alert and oriented.. HEENT: Normocephalic. Neck is supple. Keratosis. Nostrils clear. Oral cavity is moist. Neck reveals no JVD, carotid bruits, or thyromegaly. CHEST EXAMINATION: Trachea is central. Symmetrical expansion. Lung sebastian clear to auscultation and percussion. CARDIAC: Normal S1, S2 with no gallops. No murmurs ABDOMEN: Soft. Bowel sounds normal. No organomegaly. No abdominal bruits. Extremities: Bilateral lower extremity trace edema. No clubbing or cyanosis Neurologically awake, alert, oriented x3 with well-coordinated movements. No focal deficits noted Skin: No rash or skin lesions. Psychiatric: Coperative. Nonsuicidal Musculoskeletal: No joint swelling or deformity. Normal range of motion. - Labs CBC & Chem 7: 03/31/24 06:54 04/01/24 07:50 Labs: Abnormal Lab Results - Last 24 Hours (Table) 04/01/24 Range/Units 07:50 Sodium 131 L (137-145) mmol/L Glucose 138 H (74-99) mg/dL Assessment and Plan Assessment: Supraventricular tachycardia Chest pain and elevated troponin level secondary to above. Status post cardiac catheterization on 03/31/2024 with mild CAD. Paroxysmal atrial fibrillation not on anticoagulation due to history of GI bleed Hypertension Hyperlipidemia History of GI bleed Parkinson's tremors in both hands mainly right arm. 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 difficile infection GI and DVT prophylaxis with PPI and already on full anticoagulation Plan: Patient will be continued on telemonitoring. Was given IV Cardizem bolus in the ER. Patient is converted to sinus rhythm now. Patient was started on metoprolol XL 20 mg daily and also anticoagulation with Eliquis. Cardiology is on board. Status post cardiac catheterization report as above.. Continue with home medication including carbidopalevodopa. Continue with GI prophylaxis PPI and monitor H&H. Follow-up closely.
[2024-04-02 08:00] LABS: Basophils % (A) 0 %; Eosinophils # (A) 0.4 k/uL (0-0.7); Eosinophils % (A) 8 %; HCT 36.3 % (39.0-53.0); HGB 12.5 gm/dL (13.0-17.5); Lymphocytes # (A) 0.5 k/uL (1.0-4.8); Lymphocytes % (A) 12 %; MCH 30.5 pg (25.0-35.0); MCHC 34.4 g/dL (31.0-37.0); MCV 88.7 fL (80.0-100.0); Mean Platelet Volume 8.1; Monocytes # (A) 0.3 k/uL (0-1.0); Monocytes % (A) 6 %; Neutrophils # (A) 3.1 k/uL (1.3-7.7); Neutrophils % (A) 70 %; Platelet Count 194 k/uL (150-450); RBC 4.09 m/uL (4.30-5.90); RDW 13.5 % (11.5-15.5); WBC 4.5 k/uL (3.8-10.6)
[2024-04-02 08:16] LABS: African American GFR (CKD) >90 (>60 ml/min/1.73 sqM); Anion Gap 4 mmol/L; Blood Urea Nitrogen 15 mg/dL (9-20); Calcium 8.8 mg/dL (8.4-10.2); Carbon Dioxide 29 mmol/L (22-30); Chloride 100 mmol/L (98-107); Glucose 104 mg/dL (74-99); Non-African American GFR(CKD) 89 (>60 ml/min/1.73 sqM); Potassium 4.6 mmol/L (3.5-5.1); Sodium 133 mmol/L (137-145)
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
--- NOTE | 2024-04-02 16:17 | P.PN ---
Subjective Progress Note Date: 04/02/24 68-year-old male with a past medical history of atrial fibrillation, recent GI bleed status post EGD and colonoscopy no bleeding source identified, C. 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 Patient denied any complaints of chest pain otherwise. No leg swelling. Last night he was trying to sleep and his Fitbit told him that his heart rate went up to 161. Also noticed to have increasing right lower extremity swelling. Patient was given IV fluid bolus and Cardizem bolus was given. He has converted to sinus rhythm. Patient was recently diagnosed with paroxysmal atrial fibrillation and SVT. On admission patient was hypotensive with blood pressure 78/57 heart rate 152 and pulse ox 97% on room air. Respirations 16. EKG showed sinus rhythm and second EKG showed SVT Chest x-ray showed no acute cardiopulmonary process. 2D echocardiogram on 05/14/2023 showed ejection fraction of 60 to 65%. Moderate TIFFANY and LV outlet obstruction consistent with HOCM. Mild TR, moderate pulmonary hypertension. AV klaudia blocking agents on hold during recent admission due to bradycardia. Laboratory data showed WBC 6.2 hemoglobin 14.1 and platelets 202 sodium 134 potassium 4.9 chloride 106 bicarb is 17 BUN 19 and creatinine 0.84 and blood sugar 135. Troponin 0.023, 0.060 and 0.080 and TSH 1.68. proBNP 118. 24-hour interval change 04/02/2024 Patient seen and examined. Patient is currently in sinus rhythm. Heart rate is in the 50s and 60s, blood pressure 124/71, pulse ox 99% on room air. We decreased Toprol yesterday due to bradycardia and heart rate seem to be improved. Repeat blood work reveals hemoglobin 12.5, creatinine 0.86, potassium 4.6. Continue patient's home cardiac medications Resume Eliquis Continue the addition of Toprol XL decreased to 12.5 mg daily -Patient has been cleared for discharge by cardiology service; need insurance authorization for discharge to skilled rehab Objective - Vital Signs Vital signs: Vital Signs Temp 97.3 F L 04/02/24 12:09 Pulse 56 L 04/02/24 12:09 Resp 16 04/02/24 12:09 BP 125/79 04/02/24 12:09 Pulse Ox 99 04/02/24 12:09 FiO2 Intake & Output 04/01/24 04/02/24 04/02/24 18:59 06:59 18:59 Intake Total 850 365 Output Total 1320 1000 1400 Balance -470 1000 -7510 Weight 89.4 kg 100.5 kg Intake: IV 10 5 Invasive Line 2 10 5 Oral 840 360 Output: Urine 1320 1000 1400 Other: Voiding Method Urinal Urinal Urinal # Voids 2 2 # Bowel Movements 1 - Exam Patient is lying in the bed comfortably, no acute distress, awake alert and oriented.. HEENT: Normocephalic. Neck is supple. Keratosis. Nostrils clear. Oral cavity is moist. Neck reveals no JVD, carotid bruits, or thyromegaly. CHEST EXAMINATION: Trachea is central. Symmetrical expansion. Lung sebastian clear to auscultation and percussion. CARDIAC: Normal S1, S2 with no gallops. No murmurs ABDOMEN: Soft. Bowel sounds normal. No organomegaly. No abdominal bruits. Extremities: Bilateral lower extremity trace edema. No clubbing or cyanosis Neurologically awake, alert, oriented x3 with well-coordinated movements. No focal deficits noted Skin: No rash or skin lesions. Psychiatric: Coperative. Nonsuicidal Musculoskeletal: No joint swelling or deformity. Normal range of motion. - Labs CBC & Chem 7: 04/02/24 07:15 04/02/24 07:15 Labs: Abnormal Lab Results - Last 24 Hours (Table) 04/02/24 04/02/24 Range/Units 07:15 07:15 RBC 4.09 L (4.30-5.90) m/uL Hgb 12.5 L (13.0-17.5) gm/dL Hct 36.3 L (39.0-53.0) % Lymphocytes # 0.5 L (1.0-4.8) k/uL Sodium 133 L (137-145) mmol/L Glucose 104 H (74-99) mg/dL Assessment and Plan Assessment: Supraventricular tachycardia Chest pain and elevated troponin level secondary to above. Status post cardiac catheterization on 03/31/2024 with mild CAD. Paroxysmal atrial fibrillation not on anticoagulation due to history of GI bleed Hypertension Hyperlipidemia History of GI bleed Parkinson's tremors in both hands mainly right arm. 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 difficile infection GI and DVT prophylaxis with PPI and already on full anticoagulation Plan: Patient will be continued on telemonitoring. Was given IV Cardizem bolus in the ER. Patient is converted to sinus rhythm now. Patient was started on metoprolol XL 20 mg daily and also anticoagulation with Eliquis. Cardiology is on board. Status post cardiac catheterization report as above.. Continue with home medication including carbidopalevodopa. Continue with GI prophylaxis PPI and monitor H&H. Follow-up closely.
[2024-04-03 06:32] VITALS: RESP 16
[2024-04-03 09:26] LABS: Basophils % (A) 0 %; Eosinophils # (A) 0.4 k/uL (0-0.7); Eosinophils % (A) 7 %; HCT 37.8 % (39.0-53.0); Lymphocytes # (A) 0.6 k/uL (1.0-4.8); Lymphocytes % (A) 10 %; MCH 30.6 pg (25.0-35.0); MCHC 34.4 g/dL (31.0-37.0); MCV 88.9 fL (80.0-100.0); Mean Platelet Volume 8.7; Monocytes # (A) 0.4 k/uL (0-1.0); Monocytes % (A) 7 %; Neutrophils # (A) 4.4 k/uL (1.3-7.7); Neutrophils % (A) 74 %; Platelet Count 256 k/uL (150-450); RBC 4.26 m/uL (4.30-5.90); RDW 13.6 % (11.5-15.5); WBC 5.9 k/uL (3.8-10.6)
[2024-04-03 09:36] LABS: African American GFR (CKD) >90 (>60 ml/min/1.73 sqM); Anion Gap 9 mmol/L; Blood Urea Nitrogen 18 mg/dL (9-20); Calcium 9.2 mg/dL (8.4-10.2); Carbon Dioxide 25 mmol/L (22-30); Chloride 98 mmol/L (98-107); Glucose 193 mg/dL (74-99); Non-African American GFR(CKD) >90 (>60 ml/min/1.73 sqM); Potassium 4.6 mmol/L (3.5-5.1); Sodium 132 mmol/L (137-145)
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
--- NOTE | 2024-04-03 16:10 | P.PN ---
Subjective Progress Note Date: 04/03/24 68-year-old male with a past medical history of atrial fibrillation, recent GI bleed status post EGD and colonoscopy no bleeding source identified, C. 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 Patient denied any complaints of chest pain otherwise. No leg swelling. Last night he was trying to sleep and his Fitbit told him that his heart rate went up to 161. Also noticed to have increasing right lower extremity swelling. Patient was given IV fluid bolus and Cardizem bolus was given. He has converted to sinus rhythm. Patient was recently diagnosed with paroxysmal atrial fibrillation and SVT. On admission patient was hypotensive with blood pressure 78/57 heart rate 152 and pulse ox 97% on room air. Respirations 16. EKG showed sinus rhythm and second EKG showed SVT Chest x-ray showed no acute cardiopulmonary process. 2D echocardiogram on 05/14/2023 showed ejection fraction of 60 to 65%. Moderate TIFFANY and LV outlet obstruction consistent with HOCM. Mild TR, moderate pulmonary hypertension. AV klaudia blocking agents on hold during recent admission due to bradycardia. Laboratory data showed WBC 6.2 hemoglobin 14.1 and platelets 202 sodium 134 potassium 4.9 chloride 106 bicarb is 17 BUN 19 and creatinine 0.84 and blood sugar 135. Troponin 0.023, 0.060 and 0.080 and TSH 1.68. proBNP 118. 24-hour interval change 04/02/2024 Patient seen and examined. Patient is currently in sinus rhythm. Heart rate is in the 50s and 60s, blood pressure 124/71, pulse ox 99% on room air. We decreased Toprol yesterday due to bradycardia and heart rate seem to be improved. Repeat blood work reveals hemoglobin 12.5, creatinine 0.86, potassium 4.6. Continue patient's home cardiac medications Resume Eliquis Continue the addition of Toprol XL decreased to 12.5 mg daily -Patient has been cleared for discharge by cardiology service; need insurance authorization for discharge to skilled rehab 04/03/2024 Patient seen and examined. Patient denies having any chest pain no shortness of breath. No palpitations. Heart rate is running in the 50s and 60s, blood pressure 111/66, pulse ox 90% on room air. Repeat blood work reveals hemoglobin 13, creatinine 0.81. Patient complains of his eyes feeling very dry on Lasix; cardiology has adjusted Lasix dose to every 48 hours Continue reduced dose of metoprolol succinate 12.5 mg daily Continue home dose of Eliquis Patient is cleared for discharge and may follow-up in the office in [address] to [address] Hughes. Patient is stable and clinically ready for discharge; await insurance authorization for discharge to skilled rehab Objective - Vital Signs Vital signs: Vital Signs Temp 98.3 F 04/03/24 09:15 Pulse 65 04/03/24 09:15 Resp 16 04/03/24 09:15 BP 111/66 04/03/24 09:15 Pulse Ox 98 04/03/24 09:15 FiO2 Intake & Output 04/02/24 04/03/24 04/03/24 18:59 06:59 18:59 Intake Total 845 128 Output Total 2075 1350 300 Balance -1230 -1350 -172 Weight 86.5 kg Intake: IV 5 10 Invasive Line 2 5 10 Oral 840 118 Output: Urine 2075 1350 300 Other: Voiding Method Urinal Urinal Urinal # Voids 2 1 3 # Bowel Movements 1 0 - Exam Patient is lying in the bed comfortably, no acute distress, awake alert and oriented.. HEENT: Normocephalic. Neck is supple. Keratosis. Nostrils clear. Oral cavity is moist. Neck reveals no JVD, carotid bruits, or thyromegaly. CHEST EXAMINATION: Trachea is central. Symmetrical expansion. Lung sebastian clear to auscultation and percussion. CARDIAC: Normal S1, S2 with no gallops. No murmurs ABDOMEN: Soft. Bowel sounds normal. No organomegaly. No abdominal bruits. Extremities: Bilateral lower extremity trace edema. No clubbing or cyanosis Neurologically awake, alert, oriented x3 with well-coordinated movements. No focal deficits noted Skin: No rash or skin lesions. Psychiatric: Coperative. Nonsuicidal Musculoskeletal: No joint swelling or deformity. Normal range of motion. - Labs CBC & Chem 7: 04/03/24 08:26 04/03/24 08:26 Labs: Abnormal Lab Results - Last 24 Hours (Table) 04/03/24 04/03/24 Range/Units 08:26 08:26 RBC 4.26 L (4.30-5.90) m/uL Hct 37.8 L (39.0-53.0) % Lymphocytes # 0.6 L (1.0-4.8) k/uL Sodium 132 L (137-145) mmol/L Glucose 193 H (74-99) mg/dL Assessment and Plan Assessment: Supraventricular tachycardia Chest pain and elevated troponin level secondary to above. Status post cardiac catheterization on 03/31/2024 with mild CAD. Paroxysmal atrial fibrillation not on anticoagulation due to history of GI bleed Hypertension Hyperlipidemia History of GI bleed Parkinson's tremors in both hands mainly right arm. 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 difficile infection GI and DVT prophylaxis with PPI and already on full anticoagulation Plan: Patient will be continued on telemonitoring. Was given IV Cardizem bolus in the ER. Patient is converted to sinus rhythm now. Patient was started on metoprolol XL 20 mg daily and also anticoagulation with Eliquis. Cardiology is on board. Status post cardiac catheterization report as above.. Continue with home medication including carbidopalevodopa. Continue with GI prophylaxis PPI and monitor H&H. Follow-up closely.
[2024-04-03] MEDS: ALPRAZolam 0.25 MG TAB PO PRN (16:54)
[2024-04-04 08:03] LABS: African American GFR (CKD) >90 (>60 ml/min/1.73 sqM); Anion Gap 4 mmol/L; Blood Urea Nitrogen 20 mg/dL (9-20); Calcium 8.7 mg/dL (8.4-10.2); Carbon Dioxide 32 mmol/L (22-30); Chloride 97 mmol/L (98-107); Glucose 102 mg/dL (74-99); Non-African American GFR(CKD) 83 (>60 ml/min/1.73 sqM); Potassium 4.4 mmol/L (3.5-5.1); Sodium 133 mmol/L (137-145)
[2024-04-04 09:43] VITALS: TEMP 98.9
--- NOTE | 2024-04-04 10:30 | P.DS ---
Providers Date of admission: 04/01/24 08:41 Attending physician: Hank Berman Consults: 03/29/24 04:55 Consult Physician Urgent Consulting Provider: [facility] Consult Reason/Comments: svt, hypotension, chest pain Do you want consulting provider notified?: Yes Primary care physician: Gayle Hernández Hospital Course: Diagnoses: Supraventricular tachycardia. Chest pain and elevated troponin level secondary to above. Status post cardiac catheterization on 03/31/2024 with mild CAD. Paroxysmal atrial fibrillation on anticoagulation Eliquis at home for more than a month as he confirms to me Hypertension Hyperlipidemia History of GI bleed Parkinson's tremors in both hands mainly right arm. Gait instability, chronic. He follow-up with Dr. 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 difficile infection Hospital course: 68-year-old -[place] male with a past medical history of atrial fibrillation, recent GI bleed status post EGD and colonoscopy no bleeding source identified, C. 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 Patient denied any complaints of chest pain otherwise. On admission he was noticed to have elevated troponin, trauma manager evaluated the patient, he underwent cardiac cath on 03/31 showing mild coronary artery disease. Patient elevated troponin is thought secondary to SVT. Currently with no chest pain or dyspnea or any other complaints. Patient was cleared for discharge by trauma manager Patient agrees he can be discharged home today. However he is going to subacute rehab for strengthening exercises as he has history of chronic gait instability. His neurologist is Dr. Boom Krause, who last seen him last November and he has another appointment coming this month March,. No change in his neurological symptoms as he confirms Patient denies GI bleed. No vomiting. No urinary complaints. Patient states that he has been using Eliquis for more than a month and he has it at home. Risk and benefit explained for him and he is agreeable to continue with Eliquis Problems and management plan were discussed with the patient and he verbalized understanding and acceptance Patient was found stable and can be discharged home in guarded prognosis however he needs follow-up as an outpatient. Patient was instructed to follow up with PCP Dr. Hernández within one week and patient agrees Patient instructed to follow-up with Dr. Hughes in 1 to 2 weeks. Patient is also instructed to follow-up with his neurologist Dr. Boom Krause, and 2 weeks and he agrees to call and make appointment Patient has a walker at home Physical exam Gen: patient is a AAOx3, no distress CVS: S1-S2, RRR, no murmur Lungs: B/L CTA, no wheezing Abdomen: soft, no distention, no tenderness, positive bowel sounds Extremity: no leg edema or induration Neuro: AA OX3. Cranial nerves are grossly intact. No asymmetrical weakness. No loss of sensation or tingling. Time spent more than 35 minutes Patient Condition at Discharge: Stable Plan - Discharge Summary New Discharge Prescriptions: No Action Carbidopa-Levodopa ER 50-200Mg [Sinemet CR 50-200 mg] 1 tab PO TID@0700,1400,2300 Timolol 0.5% Ophth Soln [Timoptic 0.5% Ophth Soln] 1 drop RIGHT EYE BID Magnesium Oxide [Magnesium] 1,000 mg PO DAILY Ascorbic Acid [Vitamin C] 1,000 mg PO DAILY Vitamin D3 325mcg 1 tab PO DAILY Artificial Tears-Hypromellose [Artificial Tear Drops] 1 drop BOTH EYES QID PRN PRN Reason: Dry Eye(S) Oxybutynin Chloride [oxyBUTYnin chloride ER] 15 mg PO HS Ketorolac 0.5% Ophth Soln [Acular 0.5%] 1 drop RIGHT EYE QID Famotidine [Pepcid] 20 mg PO BID 15 Days #30 tab prednisoLONE ACETATE 1% OPHTH [Pred Forte 1%] 1 drop BOTH EYES QID Cyanocobalamin (Vitamin B-12) [Vitamin B-12] 1,000 mcg PO DAILY dilTIAZem HCL [dilTIAZem HCL 24Hr ER (CD)] 120 mg PO HS Apixaban [Eliquis] 5 mg PO BID Erythromycin Ophth Oint (1 gm) [Ilotycin Ophth Oint (1 gm)] 1 applic BOTH EYES HS Gabapentin [Neurontin] 100 mg PO TID@0700,1400,2300 Losartan Potassium 100 mg PO DAILY methocarbamoL [Robaxin] 500 mg PO Q8H traMADol HCl [Ultram] 50 mg PO TID PRN PRN Reason: Pain Discharge Medication List Carbidopa-Levodopa ER 50-200Mg [Sinemet CR 50-200 mg] 1 tab PO TID@0700,1400,2300 10/18/19 [History] Ascorbic Acid [Vitamin C] 1,000 mg PO DAILY 04/30/23 [History] Cyanocobalamin (Vitamin B-12) [Vitamin B-12] 1,000 mcg PO DAILY 04/30/23 [History] Magnesium Oxide [Magnesium] 1,000 mg PO DAILY 04/30/23 [History] Timolol 0.5% Ophth Soln [Timoptic 0.5% Ophth Soln] 1 drop RIGHT EYE BID 04/30/23 [History] prednisoLONE ACETATE 1% OPHTH [Pred Forte 1%] 1 drop BOTH EYES QID 04/30/23 [History] dilTIAZem HCL [dilTIAZem HCL 24Hr ER (CD)] 120 mg PO HS 09/09/23 [History] Apixaban [Eliquis] 5 mg PO BID 01/11/24 [History] Artificial Tears-Hypromellose [Artificial Tear Drops] 1 drop BOTH EYES QID PRN 01/11/24 [History] Erythromycin Ophth Oint (1 gm) [Ilotycin Ophth Oint (1 gm)] 1 applic BOTH EYES HS 01/11/24 [History] Gabapentin [Neurontin] 100 mg PO TID@0700,1400,2300 01/11/24 [History] Losartan Potassium 100 mg PO DAILY 01/11/24 [History] Vitamin D3 325mcg 1 tab PO DAILY 01/11/24 [History] Ketorolac 0.5% Ophth Soln [Acular 0.5%] 1 drop RIGHT EYE QID 03/05/24 [History] Oxybutynin Chloride [oxyBUTYnin chloride ER] 15 mg PO HS 03/05/24 [History] methocarbamoL [Robaxin] 500 mg PO Q8H 03/05/24 [History] Furosemide [Lasix] 20 mg PO Q48H tab 04/04/24 [Rx] Metoprolol Succinate (ER) [Toprol XL] 12.5 mg PO DAILY tab 04/04/24 [Rx] Pantoprazole [Protonix] 40 mg PO [id number] tab 04/04/24 [Rx] traMADol HCl [Ultram] 50 mg PO BID 10 Days #20 tab 04/04/24 [Rx] Follow up Appointment(s)/Referral(s): Gayle Hernández MD [Primary Care Provider] - 1-2 days Chong Hughes DO [STAFF PHYSICIAN] - 1 Week
[2024-04-04 12:37] VITALS: BP 98/65; PULSE 56
[2024-04-05] MEDS ORDERED: FUROSEMIDE 20 MG TAB PO SCH (09:00)
== END 2024-04-04 15:18 | DRG 287 ==
LOC: EC 02:10 → 6NMEDSUR 04:55 → 3SCARD 07:44 → OBSVTOIN 04-01 08:41
PROVIDERS: ADMIT Hospitalist; ATTEND Hospitalist
PROC: 4A033BC Measurement of Arterial Pressure, Coronary, Percutaneous Approach (ICD-10-PCS; principal; 2024-03-31 09:00)
PROC: 4A0335C Measurement of Arterial Flow, Coronary, Percutaneous Approach (ICD-10-PCS; principal; 2024-03-31 09:00)
PROC: 4A023N7 Measurement of Cardiac Sampling and Pressure, Left Heart, Percutaneous Approach (ICD-10-PCS; principal; 2024-03-31 09:00)
PROC: B2111ZZ Fluoroscopy of Multiple Coronary Arteries using Low Osmolar Contrast (ICD-10-PCS; principal; 2024-03-31 09:00)
DX: I47.10 Supraventricular tachycardia, unspecified (principal); I25.10 Atherosclerotic heart disease of native coronary artery without angina pectoris; I10 Essential (primary) hypertension; E78.5 Hyperlipidemia, unspecified; G20.A1 Parkinson's disease without dyskinesia, without mention of fluctuations; I27.20 Pulmonary hypertension, unspecified; H18.603 Keratoconus, unspecified, bilateral; Z94.7 Corneal transplant status; E66.9 Obesity, unspecified; Z68.30 Body mass index [BMI] 30.0-30.9, adult; R79.89 Other specified abnormal findings of blood chemistry; M54.2 Cervicalgia; V89.2XXS Person injured in unspecified motor-vehicle accident, traffic, sequela; M19.90 Unspecified osteoarthritis, unspecified site; R26.9 Unspecified abnormalities of gait and mobility; I48.0 Paroxysmal atrial fibrillation; Z79.01 Long term (current) use of anticoagulants; Z98.1 Arthrodesis status; Z87.19 Personal history of other diseases of the digestive system; Z79.891 Long term (current) use of opiate analgesic; Z79.899 Other long term (current) drug therapy; Z88.7 Allergy status to serum and vaccine; Z91.012 Allergy to eggs; Z90.49 Acquired absence of other specified parts of digestive tract
CPT/HCPCS: 36415; 71046; 80048; 80053; 83735; 83880; 84443; 84484; 85025; 85610; 85730; 93005; 93306; 93458; 93571; 96360; 99291

== ENCOUNTER → 2024-05-05 | Outpatient (CLI) | payer MEDICARE | END | disposition home or self-care (01) | LOC: LABWHC1 12:44 | PROVIDERS: ATTEND Urology | DX: Z12.5 Encounter for screening for malignant neoplasm of prostate (principal); C61 Malignant neoplasm of prostate | CPT/HCPCS: 36415; G0103 ==

== ENCOUNTER → 2024-11-15 | Outpatient (CLI) | payer MEDICARE | END | disposition home or self-care (01) | LOC: LABPRL 15:02 | PROVIDERS: ATTEND Family Medicine | DX: I25.10 Atherosclerotic heart disease of native coronary artery without angina pectoris (principal); I48.20 Chronic atrial fibrillation, unspecified; I12.9 Hypertensive chronic kidney disease with stage 1 through stage 4 chronic kidney disease, or unspecified chronic kidney disease; N18.9 Chronic kidney disease, unspecified; A04.71 Enterocolitis due to Clostridium difficile, recurrent; R19.7 Diarrhea, unspecified | CPT/HCPCS: 87324 ==